=== PATIENT | male | born 1950 | race Caucasian/White ===

== ENCOUNTER 2020-01-22 19:25 | Inpatient (IN) | payer OTHER ==
[2020-01-22] MEDS ORDERED: NA CHLORIDE 0.9% 1,000 ML IV ONE (19:35)
[2020-01-22 19:59] VITALS: BMI 45.6
[2020-01-22 20:19] LABS: Absolute Lymphocytes (CBC) 0.4 K/uL (0.7-4.9); Basophils % 0.3 % (0-1.3); Hematocrit 35.1 % (39.6-49.0); Lymphocytes % 3.6 % (15.3-44.8); MPV 7.6 fL (7.6-11.3); RBC Red Blood Cell Count 3.84 M/uL (4.33-5.43)
[2020-01-22 20:40] LABS: Bilirubin Total 0.7 mg/dL (0.2-1.0); Blood Morphology Comment NOT SEEN (NOT SEEN); CKMB Creatine Kinase MB 1.2 ng/mL (0.3-3.6); Phosphorus 3.5 mg/dL (2.5-4.9); Platelet Estimate ADEQ; Potassium 3.1 mmol/L (3.5-5.1); Protein, Total 7.7 g/dL (6.4-8.2); Troponin I 0.03 ng/mL (0.0-0.045); Urine White Blood Cell Casts OK
[2020-01-22] MEDS: CEFTRIAXONE/SWI 1gm 1 GM/10 ML SYR IV SCH (22:15)
--- NOTE | 2020-01-22 22:32 | RAD REPORT ---
EXAM DESCRIPTION: Rosa M Sanchez (2 Views)01/22/2020 9:57 pm CLINICAL HISTORY: Sepsis COMPARISON: None FINDINGS: The lungs appear clear of acute infiltrate. The heart is borderline enlarged IMPRESSION: No acute abnormalities displayed
[2020-01-22] MEDS ORDERED: ENOXAPARIN 30 MG/0.3 ML SQ ONE (22:34)
[2020-01-22] MEDS: ACETAMINOPHEN 500 MG TAB PO PRN (22:35)
[2020-01-22 22:57] LABS: Urine Appearance TURBID; Urine Blood 3+ (NEG); Urine Color DK YELLOW; Urine Glucose NEGATIVE (NEG); Urine Protein 1+ (NEG); Urine Specific Gravity 1.025 (1.005-1.030)
[2020-01-22 23:04] LABS: Urine Bilirubin NEGATIVE (NEG)
[2020-01-23] MEDS: NA CHLORIDE 0.9% 1,000 ML IV SCH ×5 (00:07→22:07)
[2020-01-23 00:19] LABS: Urine Culture Reflex Order NOT NEEDED
[2020-01-23 00:22] LABS: Urine Bacteria >50 /HPF (NONE SEEN); Urine Coarse Granular Casts 0-5 /LPF (NONE SEEN); Urine RBC 20-50 /HPF (NONE SEEN)
--- NOTE | 2020-01-23 01:24 | HP ---
Date of Admission: 01/22/2020 Chief Complaint: Fever, chills, feeling weak. History Of Present Illness: This is a 69-year-old pleasant male patient who takes multiple antihypertensive medications, has chronic leg edema. He called office today as he was not feeling good at all and reported that his temperature was 102.3, so he was asked to come and see me. He denies any cough , cold, congestion, not coughing up any mucus except says that yesterday he had runny nose for about 4-5 hours. He started to have this fever as of Monday of last week and his maximum temperature was 102.3 degree Fahrenheit last night. He also reports that in the last few days, his left leg swelling has gotten worse and it is more than usual. He has history of prostate cancer and he had radiation therapy for prostate cancer and says that ever since that time, this was few years ago, he has occasional burning sensation on urination, but that has gotten worse in last few days. Denies any abdominal pain, nausea, vomiting. No constipation. No diarrhea. No shortness of breath. Today, he started to have profuse sweating. When he came to office when I examined him, he appeared extremely pale. His appetite is poor and has generalized weakness. After I evaluated him, he was admitted to the hospital and I was concerned about possibility of sepsis. Allergies: NO KNOWN ALLERGIES. Medications: Amlodipine 5 mg 2 times a day, aspirin 81 mg daily, clonidine 0.3 mg 3 times a day, hydralazine 50 mg p.o. 2 times a day, hydrochlorothiazide 12.5 mg p.o. daily, lisinopril 20 mg p.o. 2 times a day, metoprolol tartrate 100 mg p.o. 2 times a day, tamsulosin 0.4 mg p.o. daily. Review of Systems: Constitutional: As mentioned above. Genitourinary: As mentioned above. Musculoskeletal: Chronic knee joint pain, unchanged. Dermatology: As mentioned above. All other systems reviewed and negative. Past Medical History: Significant for goiter, hypertension, mixed hyperlipidemia, prostate cancer, erectile dysfunction, lymphedema of legs, osteoarthritis. Past Surgical History: Partial thyroidectomy in 2014, due to goiter and this was in form of removal of left thyroid lobe. Family History: Father , had coronary artery disease, hypertension. Mother , had Parkinson disease. Social History: Negative for smoking. Occasional use of alcohol. Physical Examination: Vital Signs: Blood pressure was 99/67 at office, repeat blood pressure was 100/ 60, checked manually; pulse 83; temperature 98.2. Patient had taken Tylenol and Motrin today for his fever. Respiratory rate 15, weight 328 pounds, height 71 inches. General: Patient is awake, alert, and oriented, not in distress, appears very weak and pale. HEENT: Head atraumatic, normocephalic. Conjunctivae nonerythematous. Sclerae white. Mouth, no thrush or edema noted. Ears/Nose, no mass, lesion, discharge noted. Neck: Supple. No JVD, lymph nodes, bruit, thyromegaly noted. Lungs: Bilateral good equal air entry. Clear to auscultation. No rhonchi. No rales. Heart: Normal heart sounds, no murmur or gallop. Abdomen: Soft, bowel sounds normal. No guarding, rigidity, tenderness, mass, hepatosplenomegaly, distention, or bruit noted. Extremities: Presence of bilateral leg edema. Skin: Skin examination of the left leg between knee and foot shows pink, warm skin, has some superficial ulceration without any bleeding or discharge. Lymphatics: No lymph node enlargement in neck, supraclavicular, infraclavicular region. Neuro: No focal neurological deficit. Chest: Unremarkable. External Genitalia: Deferred. Rectal: Deferred. Laboratory Data: Chest x-ray no acute changes. Urinalysis shows leukocyte trace, nitrite negative, WBC <5, bacteria >50, protein 1+. Lab shows WBC 10.2, hemoglobin 11.9, platelets 181, sodium 137, potassium 3.1, chloride 101, bicarb 27, glucose 100, BUN 33, creatinine 2.87, liver function tests unremarkable, procalcitonin 11.08, lactate 1.7. Impression: 1. Sepsis, rule out acute pyelonephritis. 2. Cellulitis, left leg. 3. Acute kidney failure. 4. Mixed hyperlipidemia. 5. Prostate cancer. 6. Morbid obesity. 7. Lymphedema, legs. 8. Hypertension. Plan: Admit patient to hospital for further evaluation and management of this problem. We will go ahead and admit him as an inpatient. He is appropriate for inpatient and is expected to spend 2 midnights in hospital. Blood culture was done. We will follow up on blood culture and urine culture and we will also follow up on influenza test. 1 L of IV fluid bolus will be given soon as he gets admitted, IV antibiotics ceftriaxone will be given. We will hold antihypertensive medication at this point. We will start DVT prophylaxis per order using Lovenox. Details and plan of treatment discussed with the patient. DAVID/TOM Voice ID: [id number] [email or web address]
[2020-01-23] MEDS ORDERED: POTASSIUM CL SA 10 MEQ TAB PO ONE (02:05)
[2020-01-23] MEDS: ACETAMINOPHEN 500 MG TAB PO PRN ×2 (04:44→23:45)
[2020-01-23 06:37] LABS: Absolute Lymphocytes (CBC) 0.3 K/uL (0.7-4.9); Hematocrit 30.2 % (39.6-49.0); MPV 7.9 fL (7.6-11.3); RBC Red Blood Cell Count 3.31 M/uL (4.33-5.43)
[2020-01-23 06:54] LABS: Magnesium 1.8 mg/dL (1.8-2.4)
[2020-01-23 07:03] LABS: Potassium 2.7 mmol/L (3.5-5.1)
[2020-01-23 07:39] LABS: Phosphorus 2.6 mg/dL (2.5-4.9)
[2020-01-23] MEDS ORDERED: MAGNESIUM SULFATE 1 gm IVPB 1 GM/100 ML BAG IV ONE (09:00)
[2020-01-23] MEDS: DOXYCYCLINE 100 MG in NA CHLORIDE 0.9% 100 ML IVPB SCH ×2 (09:00→22:07)
[2020-01-23] MEDS: KCL 20 MEQ/100 mL IVPB 20 MEQ/100 ML BAG IV SCH ×3 (11:05→16:22)
[2020-01-23] MEDS: CEFTRIAXONE/SWI 1gm 1 GM/10 ML SYR IV SCH ×2 (11:05→22:07)
[2020-01-23] MEDS: HYDROCODONE/APAP 5/325 MG TAB PO PRN ×3 (11:10→20:45)
[2020-01-23] MEDS ORDERED: NA CHLORIDE 0.9% 100 ML ONE (13:48)
[2020-01-23] MEDS ORDERED: DIPHENHYDRAMINE 50 MG/ML VIAL ONE (13:48)
[2020-01-23] MEDS ORDERED: NA CHLORIDE 0.9% 250 ML ONE (13:48)
[2020-01-23] MEDS ORDERED: [UNRECOGNIZED DRUG - OTHER] ONE (13:49)
[2020-01-23] MEDS ORDERED: TRASTUZUMAB ONE (13:49)
[2020-01-23] MEDS ORDERED: HEPARIN 500 UNIT/5 ML SYR IV ONE (17:02)
[2020-01-23] MEDS: ENOXAPARIN 30 MG/0.3 ML SQ SCH (18:41)
[2020-01-23] MEDS ORDERED: POTASSIUM 25 MEQ EFFERV TAB PO ONE (22:09)
[2020-01-24] MEDS ORDERED: ACETAMINOPHEN 500 MG TAB PO ONE (01:27)
[2020-01-24] MEDS ORDERED: IBUPROFEN 400 MG TAB PO ONE (01:28)
[2020-01-24] MEDS: HYDROCODONE/APAP 5/325 MG TAB PO PRN ×3 (05:23→21:44)
[2020-01-24 06:02] LABS: Potassium 3.1 mmol/L (3.5-5.1)
[2020-01-24] MEDS ORDERED: POTASSIUM 25 MEQ EFFERV TAB PO ONE ×2 (06:07→15:00)
[2020-01-24] MEDS ORDERED: VANCOMYCIN/NS 1 gm 1 GM/250 ML BAG IVPB SCH (07:30)
[2020-01-24 07:34] LABS: Absolute Lymphocytes (CBC) 0.5 K/uL (0.7-4.9); Basophils % 0.1 % (0-1.3); Hematocrit 31.6 % (39.6-49.0); Lymphocytes % 4.7 % (15.3-44.8); RBC Red Blood Cell Count 3.47 M/uL (4.33-5.43)
[2020-01-24] MEDS ORDERED: Levofloxacin500mg IV 500 MG/100 ML BAG IV ONE (08:00)
[2020-01-24] MEDS ORDERED: VANCOMYCIN 2 GM in NA CHLORIDE 0.9% 500 ML IVPB SCH (08:00)
[2020-01-24] MEDS: DOXYCYCLINE 100 MG in NA CHLORIDE 0.9% 100 ML IVPB SCH ×2 (08:37→21:19)
[2020-01-24 08:49] LABS: Blood Morphology Comment NOT SEEN (NOT SEEN); Platelet Estimate ADEQ
[2020-01-24] MEDS ORDERED: NA CHLORIDE 0.9% 500 ML ONE (08:55)
[2020-01-24] MEDS: TAMSULOSIN 0.4 MG SR CAP PO SCH (10:41)
--- NOTE | 2020-01-24 11:26 | RAD REPORT ---
EXAM DESCRIPTION: US - Renal Ultrasound-Complete - 01/24/2020 11:06 am CLINICAL HISTORY: . Acute renal failure COMPARISON: None. FINDINGS: The right kidney measures 12 cm with a normal echotexture. The left kidney measures 14 cm with a normal echotexture. 3.3 centimeters cyst Hydronephrosis is not seen. IMPRESSION: 3.3 centimeter left renal cyst
--- NOTE | 2020-01-24 11:27 | RAD REPORT ---
EXAM DESCRIPTION: US - Urinary Bladder - 01/24/2020 11:07 am CLINICAL HISTORY: Acute renal insufficiency FINDINGS: Prevoid bladder volume equals 42 cc Postvoid bladder volume equals 7 cc No ascites IMPRESSION: Prevoid bladder volume equals 42 cc Postvoid bladder volume equals 7 cc
--- NOTE | 2020-01-24 11:38 | RAD REPORT ---
EXAM DESCRIPTION: Rosa M Single View01/24/2020 11:23 am CLINICAL HISTORY: Chest pain COMPARISON: January 22, 2020 FINDINGS: The lungs appear clear of acute infiltrate. The heart is mildly to moderately enlarged IMPRESSION: No acute abnormalities displayed
--- NOTE | 2020-01-24 11:59 | P.CNS ---
Date of Consult: 01/24/20 Reason for Consult: ciera, hypokalmemia Requesting Physician: Isaias Cates Chief Complaint: fever, weakness Allergies No Known Allergies Allergy (Unverified 01/22/20 19:59) Home Medications: Abiraterone Acetate [Zytiga] 1,000 mg PO DAILY 01/22/20 Amlodipine Besylate 1 tab PO BID 01/22/20 Ascorbate Calcium [Vitamin C] 1 tab PO DAILY 01/22/20 Aspirin [Aspirin EC 81 MG] 1 tab PO BEDTIME 01/22/20 Ca/D3/Mag Ox/Zinc/Bleach Supervisor/Latrell/Bor [Calcium 600-D3 Plus Caplet] 1 tab PO DAILY 01/21 Cholecalciferol (Vitamin D3) [Vitamin D3] 1 cap PO DAILY 01/22/20 Clonidine HCl [Catapres] 1 tab PO TID 01/22/20 Hydralazine [Apresoline*] 25 mg PO BID 01/22/20 Iron,Carb/Vit C/Vit B12/Folic [Iron 100 Plus Tablet] 1 tab PO DAILY 01/22/20 Lisinopril [Zestril] 1 tab PO BID 01/22/20 Metoprolol Tartrate 50 mg PO DAILY 01/22/20 Montelukast Sodium 10 mg PO PRN 01/22/20 Tamsulosin HCl 1 tab PO DAILY 01/22/20 Ubidecarenone [Co Q10] 200 mg PO DAILY 01/22/20 hydroCHLOROthiazide [Hydrochlorothiazide] 12.5 mg PO BID 01/22/20 predniSONE [Prednisone*] 5 mg PO BID 01/22/20 - Past Medical/Surgical History Diabetic: No -: Hypertension -: Prostate CA, Radiation 45 days last Oct -: thyroidectomy - Family History Father Medical History: Heart disease Mother Medical History: Other (see notes) Notes: parkinson Brother Medical History: Other (see notes) Notes: sepsis - Social History Alcohol use: Yes CD- Drugs: No Caffeine use: Yes Place of Residence: Home Physical Examination Temp Pulse Resp BP Pulse Ox 97.3 F 106 H 16 134/84 98 01/24/20 08:00 01/24/20 08:00 01/24/20 08:00 01/24/20 08:00 01/24/20 08:00 Laboratory Data (last 24 hrs) 01/24/20 07:17: WBC 10.2 D, Hgb 10.7 L, Hct 31.6 L, Plt Count 150 L 01/24/20 05:14: Magnesium 1.9 01/24/20 05:14: Sodium 137, Potassium 3.1 L, BUN 49 H, Creatinine 3.42 H, Glucose 102 01/23/20 : Potassium Cancelled 01/23/20 21:31: Potassium 3.1 L - Problems (1) CIERA (acute kidney injury) Current Visit: Yes Status: Acute Conclusions/Impression: History Of Present Illness: A 69-year-old with PMHx of HTN , prostate CA on Leupron? was on radiation therapy until 10/2019 and started last month on Zytiga pt was sent fro fever and chills pt was started on Zytiga in december last 3-4 days pt had fever and chills, pt have chronic dysuria due to radiation cystitis had runny nose for 3-4 hrs , with mild nausea and no vomiting he denied SOB , cough, diarrhea, chest pain, palpitation , pt was taking Ibuprofen 3-4 times daily last 3-4 days Allergies: NO KNOWN ALLERGIES. Medications: Amlodipine 5 mg 2 times a day, aspirin 81 mg daily, clonidine 0.3 mg 3 times a day, hydralazine 50 mg p.o. 2 times a day, hydrochlorothiazide 12.5 mg p.o. daily, lisinopril 20 mg p.o. 2 times a day, metoprolol tartrate 100 mg p.o. 2 times a day, tamsulosin 0.4 mg p.o. daily. Review of Systems: as in HPI Past Medical History: as in HPI Past Surgical History: Partial thyroidectomy in 2014, due to goiter and this was in form of removal of left thyroid lobe. Family History: Father , had coronary artery disease, hypertension. Mother , had Parkinson disease. Social History: Negative for smoking. Occasional use of alcohol. Physical exam general: AAOX3, NAD , obese Neck; Supple, No elevated JVD hear: RRR, normal S1,2 no murmur or rub Chest: CTAB, no rales or wheezes Abdomen: Soft , Nt Extremities Lt leg edema and erythema , with Lt leg trace edema A/p CIERA Cr ~1.0 at baseline possibly due to septic ATn vs Zytiga will cont IVF renal US no hydro will cont IV for now cont to hold HCTZ will send for serology will send for UPC HTN BP controlled Bladder CA hold Zytiga Sepsis monitor vanco level F/U cultures
[2020-01-24] MEDS: NA CHLORIDE 0.9% 1,000 ML IV SCH ×2 (12:00→21:19)
--- NOTE | 2020-01-24 12:25 | PN ---
Date of Progress Note: 01/23/2020 Subjective: The patient was seen for followup in the morning. He actually looked better than yester day. He is complaining of lot of pain in his left leg and reported that Tylenol was not helping, so we did talk about some stronger pain medication and we will order that for him. No nausea or vomitin g. No other new complaints reported overnight. Objective: Vital Signs: Reviewed. HEENT: Unremarkable. Lungs: Clear to auscultation. Heart: Sounds normal. Abdomen: Soft. Bowel sounds normal. No guarding, rigidity, tenderness, or distention. Extremity: Left leg redness of the skin between knee and foot is present and unchanged. Leg is warm to touch. No new findings noted. Right leg is normal. Laboratory Data: White count 8.1, hemoglobin 10.3, platelets 148. Procalcitonin level today is 6.16 , which is better from yesterday and yesterday it was 11.08. Sodium 135, potassium 2.7, chloride 103 , bicarb 24, BUN 37, creatinine 2.61, glucose 93, magnesium 1.8. Creatinine today is better, it is 2 .61. Yesterday, it was 2.87. Impression: 1.Cellulitis, left leg. 2.Rule out sepsis. 3.Acute kidney failure. 4.Hypertension. 5.Hypokalemia. 6.Hyponatremia. Plan: We will go ahead and continue IV fluid per order. We will also continue ceftriaxone that was started upon admission and we will add doxycycline. Blood culture result pending. Influenza test is negative. The patient's procalcitonin has improved compared to yesterday. IV fluid will be continu ed. We will continue Lovenox for DVT prophylaxis, and hydrocodone was ordered. We will add doxycycl ine as per order and I will see him tomorrow for followup. We will not start any antihypertensive medica tion yet. DAVID/MODL Voice ID: [id number] Report ID: [id number]
[2020-01-24] MEDS: VANCOMYCIN 2 GM in NA CHLORIDE 0.9% 500 ML IVPB SCH (12:38)
[2020-01-24] MEDS: ENOXAPARIN 30 MG/0.3 ML SQ SCH (16:05)
[2020-01-24] MEDS: predniSONE 5 MG TAB PO SCH (21:18)
[2020-01-24] MEDS: ACETAMINOPHEN 500 MG TAB PO PRN (22:21)
--- NOTE | 2020-01-24 22:21 | PN ---
Date of Progress Note: 01/24/2020 Subjective: Patient was seen this morning for followup. He was sitting at bedside in chair. Overal l, he looks a lot better today than yesterday and day before yesterday. He had lot of leg pain yeste rday in the left leg, but that has improved. Denies any abdominal pain, nausea, vomiting. No shortn ess of breath. Appetite has improved. Objective: Vital Signs: Reviewed. Blood pressure actually has improved now. HEENT: Unremarkable. Lungs: Clear to auscultation. Heart: Heart sounds normal. Abdomen: Soft, bowel sounds normal. No guarding, rigidity, tenderness, or distention. Extremities: Left leg has about grade 3 pedal edema. Edema of the left leg has gotten worse compare d to yesterday and cellulitis changes also has gotten worse today compared to yesterday and day befor e yesterday. Today, his left medial thigh almost entire left medial thigh has pink warm skin, which is new. His intensity of redness of skin in the area between left knee and foot is lot worse today a lso involving left foot. There is some clear liquid type of discharge from the left dorsum foot and nurse was advised to go ahead and clean that area and send it for the culture. Laboratory Data: Today's blood work results reviewed. White count is normal. His procalcitonin is down to 4. Yesterday, it was 6, day before yesterday it was 11. Creatinine has gone up today to 3.4 range, from the time of admission, which was day before yesterday. Until yesterday morning, there w as improvement and between yesterday morning and today creatinine has gone up. His procalcitonin has steadily declined since the time of admission. Impression: 1.Cellulitis, left leg. 2.Acute kidney failure. 3.Rule out sepsis. 4.Hypertension. Plan: We will go ahead and discontinue ceftriaxone and doxycycline and start the patient on Levaquin as well as vancomycin as per order. Consult pharmacy for vancomycin dose management. IV fluid was ordered. Patient was getting IV fluid at 100 mL/hour and 500 mL bolus was ordered and then we will c ontinue IV fluid at 100 mL/hour. Kidney and bladder ultrasound was ordered to be done this morning. Results reviewed and it is normal. Nephrology consultation was also ordered and charter coach driver has se en the patient and I have discussed details with the charter coach driver. I expect his renal function to im prove hopefully starting tomorrow or day after tomorrow we might able to reach peak level today. His renal failure I strongly suspect is result of probable acute kidney injury from hypotension and seps is type of problem and all the details were discussed with the patient. No need for any antihyperten sive medication at this point yet. PICC line was ordered as the patient is having poor IV access. W e will repeat blood work tomorrow morning. Ambulation was encouraged. Patient was advised to keep h is leg elevated and continue DVT prophylaxis with Lovenox. DAVID/MODL Voice ID: [id number] Report ID: [id number]
[2020-01-25 02:19] LABS: Urine Protein/Creatinine Ratio 2.04 ratio (<0.15)
[2020-01-25] MEDS: TAMSULOSIN 0.4 MG SR CAP PO SCH (07:26)
[2020-01-25] MEDS: predniSONE 5 MG TAB PO SCH ×2 (07:26→21:04)
[2020-01-25 07:28] LABS: Potassium 3.4 mmol/L (3.5-5.1)
[2020-01-25] MEDS: NA CHLORIDE 0.9% 1,000 ML IV SCH ×2 (07:32→17:08)
[2020-01-25 07:58] LABS: Phosphorus 2.8 mg/dL (2.5-4.9); Thyroid Stimulating Hormone 0.458 uIU/mL (0.360-3.740); Uric Acid 5.9 mg/dL (3.5-7.2)
[2020-01-25] MEDS ORDERED: Levofloxacin 250mg IV 250 MG/50 ML BAG IV SCH (08:00)
[2020-01-25 08:31] LABS: Rheumatoid Factor NEG (NEG)
[2020-01-25] MEDS: DOXYCYCLINE 100 MG in NA CHLORIDE 0.9% 100 ML IVPB SCH (08:51)
[2020-01-25] MEDS ORDERED: POTASSIUM 25 MEQ EFFERV TAB PO ONE ×2 (09:00→16:00)
[2020-01-25] MEDS: METOPROLOL TAR 25 MG TAB PO SCH ×2 (09:49→21:04)
--- NOTE | 2020-01-25 13:32 | PN ---
Date of Progress Note: 01/25/2020 Subjective: Patient was seen this morning for followup. No new complaints or problems reported by h im. Reported that he rested well last night. Pain in his left leg is better when he has his leg chantelle vated, but notices more pain when he keeps his leg in a dependent position while sitting, standing, w alking, etc. Denies any shortness of breath. Objective: Vital Signs: Reviewed. HEENT: Unremarkable. Lungs: Clear to auscultation. Heart: Heart sounds normal. Abdomen: Soft. Bowel sounds normal. No guarding, rigidity, tenderness, distention. Extremities: Right leg, no edema. Left leg has grade 3 pedal edema, which is unchanged from yesterd ay. Redness of skin of left thigh and left leg between knee and toes remain unchanged today and swel ling remains unchanged today. There are some superficial open areas on the lower and lateral leg and dorsum foot remains unchanged. Laboratory Data: Sodium 139, potassium 3.4, chloride 106, bicarb 24, BUN 50, creatinine 3.60, glucos e 90. Blood culture remains negative. Impression: 1.Acute kidney injury. 2.Cellulitis, left leg. 3.Hypertension. 4.Sinus tachycardia. Plan: Patient's heart rate remains in 120 to 130 range lot of times and on surveillance monitor it is s inus tachycardia. No evidence of atrial fibrillation. We will restart his antihypertensive medicati on, metoprolol that he normally takes at home and we will start it at 25 mg twice a day dose. His cr eatinine when he came in was 2.8 and it came down to 2.6, then yesterday went up to 3.4, and today it is 3.6. Increase in creatinine in the last 24 hours is not as bad as previous 24 hours, so I hope t hat we might have reached a peak level by today. We will continue current antibiotics, IV fluids, re peat blood work tomorrow, continue to follow with blood or blood bank technician, and I will see him tomorrow for follo wup. Continue Lovenox and prednisone per order. Patient reported that he is on prednisone for the l ast 3 weeks along with his chemotherapy medication started by Dr. Estrella. DAVID/MODL Voice ID: [id number] Report ID: [id number]
--- NOTE | 2020-01-25 15:55 | P.PN ---
Subjective Date of Service: 01/25/20 Chief Complaint: fever, weakness Subjective A 69-year-old with PMHx of HTN , prostate CA was on radiation therapy until 2018 and started last month on Zytiga pt was sent fro fever and chills pt was started on Zytiga in med December in [place] cr 2.6 and elevated to 3.6 today feels better have tachycardia , BB restarted Cr slightly elevate d to 3.8, plateauing? cont IVF for now Allergies: NO KNOWN ALLERGIES. Medications: Amlodipine 5 mg 2 times a day, aspirin 81 mg daily, clonidine 0.3 mg 3 times a day, hydralazine 50 mg p.o. 2 times a day, hydrochlorothiazide 12.5 mg p.o. daily, lisinopril 20 mg p.o. 2 times a day, metoprolol tartrate 100 mg p.o. 2 times a day, tamsulosin 0.4 mg p.o. daily. Review of Systems: as in HPI Past Medical History: as in HPI Past Surgical History: Partial thyroidectomy in 2014, due to goiter and this was in form of removal of left thyroid lobe. Family History: Father , had coronary artery disease, hypertension. Mother , had Parkinson disease. Social History: Negative for smoking. Occasional use of alcohol. Physical exam general: AAOX3, NAD , obese Neck; Supple, No elevated JVD hear: tachycardia, regular rhythm normal S1,2 no murmur or rub Chest: CTAB, no rales or wheezes Abdomen: Soft , Nt Extremities Lt leg edema and erythema , with Lt leg trace edema A/p CIERA Cr ~1.0 at baseline possibly due to septic ATn vs Zytiga will cont IVF renal US no hydro will cont IV for now cont to hold HCTZ UPC 2.0 F/U serology HTN BP controlled Bladder CA hold Zytiga Sepsis monitor vanco level F/U cultures Physical Examination - Vital Signs Temperature: 99 F Blood Pressure: 123/68 Pulse: 125 Respirations: 16 Pulse Ox (%): 94 - Studies Laboratory Data (last 24 hrs) 01/25/20 15:23: Potassium 3.7 01/25/20 13:00: Potassium Cancelled 01/25/20 07:15: Uric Acid 5.9, Phosphorus 2.8 01/25/20 05:47: Sodium 139, Potassium 3.4 L, BUN 50 H, Creatinine 3.60 H, Glucose 90 Microbiology Data (last 24 hrs): 01/24/20 13:45 Wound - Left Foot Gram Stain - Final 01/24/20 08:14 Blood - Blood Anaerobic Blood Culture - Final 01/22/20 22:10 Clean Catch Urine [place] Count - Final <10,000 CFU/ML. 01/22/20 22:10 Clean Catch Urine - Final MIXED AMBER. Assessment And Plan - Current Problems (Diagnosis) (1) CIERA (acute kidney injury) Current Visit: Yes Status: Acute
[2020-01-25] MEDS: ENOXAPARIN 30 MG/0.3 ML SQ SCH (17:07)
[2020-01-25] MEDS: HYDROCODONE/APAP 5/325 MG TAB PO PRN (21:11)
[2020-01-25] MEDS: VANCOMYCIN 2 GM in NA CHLORIDE 0.9% 500 ML IVPB SCH (22:30)
[2020-01-25] MEDS: ACETAMINOPHEN 500 MG TAB PO PRN (22:30)
[2020-01-26] MEDS: ACETAMINOPHEN 500 MG TAB PO PRN ×3 (02:16→21:47)
[2020-01-26 04:11] LABS: Absolute Lymphocytes (CBC) 0.5 K/uL (0.7-4.9); Basophils % 0.1 % (0-1.3); Hematocrit 26.7 % (39.6-49.0); Lymphocytes % 3.4 % (15.3-44.8); MPV 8.2 fL (7.6-11.3); RBC Red Blood Cell Count 2.94 M/uL (4.33-5.43)
[2020-01-26] MEDS ORDERED: METOPROLOL TARTRATE 5 MG/5 ML INJ IV PRN ×2 (04:21→04:35)
[2020-01-26 04:25] LABS: Magnesium 1.5 mg/dL (1.8-2.4); Potassium 3.1 mmol/L (3.5-5.1)
[2020-01-26] MEDS: NA CHLORIDE 0.9% 1,000 ML IV SCH ×3 (04:35→16:06)
[2020-01-26] MEDS ORDERED: Magnesium Sulfate 2gm IVPB 2 G/50 ML BAG IV ONE (05:21)
[2020-01-26] MEDS ORDERED: POTASSIUM CL SA 10 MEQ TAB PO ONE (05:22)
[2020-01-26] MEDS: TAMSULOSIN 0.4 MG SR CAP PO SCH (08:06)
[2020-01-26] MEDS: predniSONE 5 MG TAB PO SCH ×2 (08:06→21:47)
[2020-01-26] MEDS ORDERED: METOPROLOL TAR 50 MG TAB PO SCH (09:00)
[2020-01-26] MEDS ORDERED: Meropenem 1000 MG/VIAL IV SCH (09:00)
--- NOTE | 2020-01-26 09:13 | EKG ---
Test Date: 2020-01-26 Test Time: 03:25:22 Hop Separator: RT [place] MEASUREMENT RESULTS: Intervals: Rate: 137 [place]: QRSD: 82 QT: 256 QTc: 386 [place]: P: [place]: QRS: 31 T: 82 INTERPRETIVE STATEMENTS: Atrial fibrillation with rapid ventricular response Abnormal ECG No previous ECG available for comparison Electronically Signed On 01-26-20 09:12:43 CDT by Chidi Arredondo
[2020-01-26] MEDS: CLINDAMYCIN INJ 600 MG in NA CHLORIDE 0.9% 50 ML IV SCH ×2 (09:43→17:25)
[2020-01-26] MEDS: Meropenem 1,000 MG in NA CHLORIDE 0.9% 100 ML IV SCH ×2 (10:27→21:47)
--- NOTE | 2020-01-26 12:02 | P.PN ---
Subjective Date of Service: 01/26/20 Chief Complaint: fever, weakness Subjective A 69-year-old with PMHx of HTN , prostate CA was on radiation therapy until 2018 and started last month on Zytiga pt was sent fro fever and chills pt was started on Zytiga in med December in [place] cr 2.6 and elevated to 3.6 today feels better , mild tachycardia Cr improving to 3.0 , ATN? resolving cont IVF wbc up to 15K, Abx adjusted by primary team, cont IVF for now will replace K, Mg replaced Allergies: NO KNOWN ALLERGIES. Medications: Amlodipine 5 mg 2 times a day, aspirin 81 mg daily, clonidine 0.3 mg 3 times a day, hydralazine 50 mg p.o. 2 times a day, hydrochlorothiazide 12.5 mg p.o. daily, lisinopril 20 mg p.o. 2 times a day, metoprolol tartrate 100 mg p.o. 2 times a day, tamsulosin 0.4 mg p.o. daily. Review of Systems: as in HPI Past Medical History: as in HPI Past Surgical History: Partial thyroidectomy in 2014, due to goiter and this was in form of removal of left thyroid lobe. Family History: Father , had coronary artery disease, hypertension. Mother , had Parkinson disease. Social History: Negative for smoking. Occasional use of alcohol. Physical exam general: AAOX3, NAD , obese Neck; Supple, No elevated JVD hear: tachycardia, regular rhythm normal S1,2 no murmur or rub Chest: CTAB, no rales or wheezes Abdomen: Soft , Nt Extremities Lt leg edema and erythema , with Lt leg trace edema A/p CIERA Cr ~1.0 at baseline possibly due to septic ATn vs Zytiga will cont IVF renal US no hydro will cont IV for now cont to hold HCTZ UPC 2.0 F/U serology HTN BP controlled Bladder CA hold Zytiga Sepsis monitor vanco level F/U cultures tachycardia possibly due to sepsis vs reflex from holding BB now restarted on BB Physical Examination - Vital Signs Temperature: 97.7 F Blood Pressure: 137/84 Pulse: 101 Respirations: 18 Pulse Ox (%): 98 - Studies Laboratory Data (last 24 hrs) 01/26/20 03:45: Sodium 140, Potassium 3.1 L, BUN 51 H, Creatinine 3.00 H, Glucose 97, Magnesium 1.5 L 01/26/20 03:45: WBC 15.4 H D, Hgb 8.9 L, Hct 26.7 L D, Plt Count 159 01/25/20 15:23: Potassium 3.7 Microbiology Data (last 24 hrs): 01/24/20 13:45 Wound - Left Foot Gram Stain - Final 01/24/20 08:14 Blood - Blood Anaerobic Blood Culture - Final 01/22/20 22:10 Clean Catch Urine [place] Count - Final <10,000 CFU/ML. 01/22/20 22:10 Clean Catch Urine - Final MIXED AMBER. Assessment And Plan - Current Problems (Diagnosis) (1) CIERA (acute kidney injury) Current Visit: Yes Status: Acute
[2020-01-26 12:10] LABS: Potassium 3.8 mmol/L (3.5-5.1)
--- NOTE | 2020-01-26 14:45 | CON ---
Date of Consultation: 01/26/2020 Reason For Consultation: New-onset atrial fibrillation. History Of Present Illness: Mr. Ha is a 69-year-old male. He is a patient of Dr. Cates, has multip le issues, but basically was admitted from Dr. Cates's office with cellulitis, sepsis, severe lymphede ma of the left leg, acute kidney failure, dyslipidemia, hypertension, morbid obesity. He was being t reated with Lovenox, Levaquin, prednisone, vancomycin, Vibramycin, as well as metoprolol and some of his home medication and while he was being treated, he had an episode yesterday of atrial fibrillatio n with a rapid ventricular response that has resolved on its own. He is today in normal sinus rhythm . He rarely feels any palpitation, but denied any symptoms with his atrial fibrillation. He denied any chest pain, shortness of breath. He denied any syncope. Past Medical History: As stated above. Allergies: NONE. Review of Systems: Positive for fever 102.3 when he came in. Social History: Unremarkable. Family History: Positive for coronary artery disease. Medications: At home include clonidine, metoprolol, aspirin, hydralazine, prednisone, Flomax, hydroc hlorothiazide as well as lisinopril and a medicine called [employer]. Physical Examination: Vital Signs: Stable. He was afebrile. He was in a sinus rhythm now. HEENT: Negative. Neck: Supple. No bruit. Chest: Clear. Cardiac: Revealed a regular rhythm and rate. No murmurs, gallops, or rubs. Abdomen: Obese, but benign. Extremities: Revealed normal right lower extremity, but the left lower extremity had cellulitis, sev ere edema, erythema. His edema extended to his left thigh. Diagnostic Data: His creatinine was 3.0. White count was 15,000, hemoglobin is 8.9. Procalcitonin was 4.32. EKG now showed normal sinus rhythm with nonspecific changes. Impression And Plan: Single episode of atrial fibrillation, now has resolved. Patient has all the r isk factors for atrial fibrillation. He has morbid obesity. He has hypertension, dyslipidemia. He came in with acute kidney failure, followed by Nephrology. He is being treated for cellulitis, sepsi s as well as lymphedema. I suggest we do not put him on anticoagulation as far as oral anticoagulati on for now just from having one episode. I do agree with the Lovenox and the metoprolol along with h is other medication that he is getting for his infections. I would like him to get a 2D echocardiogr am tomorrow. If the echocardiogram is normal, I would suffice with aspirin and beta-blockers. It ma y be worth getting an event monitor on him down the road to see if he is having paroxysmal atrial fib rillation and we can make an arrangement for that as an outpatient. I will discuss the case further with Dr. Cates. His other problems including hypertension and dyslipidemia are well controlled. His kidney function is being followed closely by Nephrology. I will continue to follow him. DESHAWN/TOM Voice ID: [id number] Report ID: [id number]
[2020-01-26] MEDS: ENOXAPARIN 30 MG/0.3 ML SQ SCH (16:06)
--- NOTE | 2020-01-26 16:51 | PN ---
Date of Progress Note: 01/26/2020 Subjective: Patient was seen this morning for followup. He was lying in bed, not in any distress. He actually feels better and looked a lot better today than last couple of days. Vital signs reviewe d. During nighttime, he had atrial fibrillation with rapid ventricular rate and he did convert to si nus rhythm after IV metoprolol, which was given early this morning. When I saw him this morning, he was in sinus rhythm. He still has lot of left leg pain, especially worse when he sits or stands with the leg in the dependent position. Objective: Vital Signs: Reviewed. HEENT: Unremarkable. Lungs: Clear to auscultation. Heart: Sounds normal. Abdomen: Soft. Bowel sounds normal. No guarding, rigidity, tenderness, distention. Extremities: Right leg, no edema. Left leg, edema remains unchanged and redness distribution from t high and lower leg remains unchanged, but intensity of redness is better today compared to yesterday and instead of hard pink appearance of the skin, now it is brownish color in lot of areas. Distribut ion remains the same from thigh and lower leg area. Laboratory Data: White count has gone up to 15.4 today, hemoglobin 8.9, platelets 159. Sodium 140, potassium 3.1, chloride 109, bicarb 23, BUN 51, creatinine 3, glucose 97, magnesium 1.5. Procalciton in today 4.32. Impression: 1.Cellulitis, left leg. 2.Acute kidney injury. 3.Hypokalemia. 4.Hypomagnesemia. 5.Anemia. 6.Hypertension. 7.Paroxysmal atrial fibrillation. Plan: We will go ahead and replace electrolyte per protocol. Metoprolol dose was increased to 50 mg twice a day. Cardiology consultation was requested. We will give anticoagulation therapy per order . I have changed antibiotics today and we will give IV meropenem and IV clindamycin per order. Vanc omycin will be continued per order. Renal function is better today. WBC has gone up today, but proc alcitonin continues to get better. All the details were discussed with the patient. WBC count shoul d show improvement with some change in antibiotics today, but procalcitonin continues to show improve ment on a day-to-day basis since admission and renal function has shown improvement now, so we hope t hat will continue to show improvement as well. DAVID/MODL Voice ID: [id number] Report ID: [id number]
[2020-01-26] MEDS: VANCOMYCIN 2 GM in NA CHLORIDE 0.9% 500 ML IVPB SCH (21:47)
[2020-01-26] MEDS: METOPROLOL TAR 50 MG TAB PO SCH (21:48)
[2020-01-27] MEDS: CLINDAMYCIN INJ 600 MG in NA CHLORIDE 0.9% 50 ML IV SCH ×3 (00:58→16:56)
[2020-01-27] MEDS: ACETAMINOPHEN 500 MG TAB PO PRN (02:03)
[2020-01-27] MEDS: NA CHLORIDE 0.9% 1,000 ML IV SCH ×2 (02:06→14:31)
[2020-01-27 05:05] LABS: Absolute Lymphocytes (CBC) 0.6 K/uL (0.7-4.9); Basophils % 0.2 % (0-1.3); Hematocrit 25.8 % (39.6-49.0); Lymphocytes % 3.7 % (15.3-44.8); MPV 7.8 fL (7.6-11.3)
[2020-01-27 05:20] LABS: Magnesium 1.8 mg/dL (1.8-2.4); Potassium 3.7 mmol/L (3.5-5.1)
[2020-01-27] MEDS ORDERED: MAGNESIUM SULFATE 1 gm IVPB 1 GM/100 ML BAG IV ONE (08:00)
[2020-01-27] MEDS: METOPROLOL TAR 50 MG TAB PO SCH ×2 (08:20→20:08)
[2020-01-27] MEDS: predniSONE 5 MG TAB PO SCH ×2 (08:22→20:07)
[2020-01-27] MEDS: TAMSULOSIN 0.4 MG SR CAP PO SCH (08:22)
--- NOTE | 2020-01-27 09:52 | RAD REPORT ---
EXAM DESCRIPTION: US - Extrem Venous W [employer]ress Derek - 01/27/2020 9:35 am CLINICAL HISTORY: leg edema Bilateral leg edema and swelling. COMPARISON: Extremity Venous [facility] dated 05/15/2018 TECHNIQUE: Real-time sonographic interrogation of the left and right lower extremity deep venous sys tems was performed. FINDINGS: Normal compressibility, flow augmentation, phasic flow and spontaneous flow is identified in both the left and right lower extremity deep venous systems. 5 cm right Pérez's cyst. IMPRESSION: No sonographic evidence of left or right lower extremity deep venous thrombosis.
--- NOTE | 2020-01-27 11:02 | RAD REPORT ---
EXAM DESCRIPTION: RAD - Chest Single View - 01/25/2020 12:11 am ADDENDUM #1 A right upper extremity PICC is present with the tip difficult to fully appreciate, is felt to be in the region of the SVC/RA junction. Electronically signed by: Irais Salgado MD 01/25/2020 5:04 AM CDT End of Addendum EXAM DESCRIPTION: Chest Single View CLINICAL HISTORY: 69 years Male S/P PICC insertion COMPARISON: None TECHNIQUE: AP view of the chest was obtained. FINDINGS: Cardiac silhouette is enlarged. Central vessels are not increased. No peripheral catheter identified. No infiltrates or effusions seen. No consolidation. No pneumothorax. IMPRESSION: No peripheral catheter identified. No active cardiopulmonary disease. Electronically signed by: Mabel Wu MD 01/25/2020 12:26 AM CDT Due to temporary technical issues with the PACS/Fluency reporting system, reports are being signed by the in house radiologist as a courtesy to ensure prompt reporting. The interpreting radiologist is f ully responsible for the content of the report.
[2020-01-27] MEDS: Meropenem 1,000 MG in NA CHLORIDE 0.9% 100 ML IV SCH ×2 (11:05→20:07)
--- NOTE | 2020-01-27 12:00 | CON ---
Date of Consultation: 01/27/2020 Reason For Consultation: Left leg cellulitis, lymphangitis, lymphedema, and wounds. History Of Present Illness: Patient is a 69-year-old gentleman who was admitted with fever, chills, and feeling weak. Diagnosis of cellulitis of the left leg. Was started on IV antibiotics and over t he next few days, the redness slightly improved. However, he developed some blisters and wounds on h is left leg and I was consulted. He is awake, alert, states that it is very painful to the touch. N o more fevers. No purulent discharge, but he has a lot of blistering of the skin that needs debridem ent. Review of Systems: Otherwise unremarkable. Medical History: High blood pressure, goiter, hyperlipidemia, prostate cancer, lymphedema of the leg s, osteoarthritis. Past Surgical History: Partial thyroidectomy. Allergies: NONE. Social History: Patient does not smoke. Drinks occasionally. Family History: Significant for coronary artery disease, hypertension, Parkinson disease. Physical Examination: Vital Signs: Significant for slightly elevated heart rate 112, blood pressure is 187/89, and his tem perature is 99.6. General: He is awake, alert, and oriented x3. Head and Neck: Cranial nerves 2 through 12 are grossly within normal limits. No neck masses. No JV D. Throat clear. Neck is supple. Chest: Clear. Heart: S1 and S2. Abdomen: Soft. Extremities: Dorsalis pedis and posterior tibial not palpable because of extensive lymphedema. The left leg below the knee there is redness, warmth, edema. There is blistering of the skin on the lowe r leg as well as the dorsum of the foot extending toward the plantar aspect of the foot. It is a chery y large area. Laboratory Data: White count is 14.9 with a left shift. H and H are 8.6 and 25.8. Chemistry review ed. His lactic acid, procalcitonin were slightly elevated on admission. Currently, his lactic acid is 0.7. Assessment: Left leg cellulitis with wound and lymphedema. Recommendations: Continue IV antibiotics. Patient is growing methicillin-resistant Staphylococcus a ureus, therefore he is on vancomycin for that as well as clindamycin and we will tomorrow take him to surgery, debride all those blisters under sedation as it is very painful for the patient to do that at bedside. Patient understands the risks, benefits, and alternatives and agrees to procedure. Plan of care discussed with Dr. Cates. EJ/TOM Voice ID: [id number] Report ID: [id number]
--- NOTE | 2020-01-27 12:44 | P.OP ---
Preoperative diagnosis: ESRD Postoperative diagnosis: same Primary procedure: SHON Pan, Fluoroscopy Anesthesia: MAC Estimated blood loss: min Specimen: none Findings: as above Complications: None Transferred to: Recovery Room Condition: Good
--- NOTE | 2020-01-27 14:56 | ECHO ---
HEIGHT: 5 ft 11 in WEIGHT: 327 lb 0 oz DATE OF STUDY: 01/27/[address]: Chidi Arredondo MD 2-DIMENSIONAL: YES M.MODE: YES DOPPLER: YES COLOR FLOW: YES TDS: YES PORTABLE: NO DEFINITY: NO BUBBLE STUDY: NO DIAGNOSIS: ATRIAL FIBRILLATOR CARDIAC HISTORY: CATHERIZATION: NO SURGERY: NO PROSTHETIC VALVE: NO PACEMAKER: NO MEASUREMENTS (cm) DIASTOLIC (NORMALS) SYSTOLIC (NORMALS) IVSd 1.7 (0.6-1.2) LA Diam 3.4 (1.9-4.0) LVEF 64% LVIDd 4.4 (3.5-5.7) LVIDs 2.9 (2.0-3.5) %FS 35% LVPWd 1.6 (0.6-1.2) Ao Diam 3.2 (2.0-3.7) 2 DIMENSIONAL ASSESSMENT: RIGHT ATRIUM: NORMAL LEFT ATRIUM: NORMAL RIGHT VENTRICLE: NORMAL LEFT VENTRICLE: LEFT VENTRICULAR HYPERTROPHY TRICUSPID VALVE: NORMAL MITRAL VALVE: NORMAL PULMONIC VALVE: NORMAL AORTIC VALVE: SCLEROSIS PERICARDIAL EFFUSION: NONE AORTIC ROOT: NORMAL LEFT VENTRICULAR WALL MOTION: NORMAL. DOPPLER/COLOR FLOW: IMPAIRED LEFT VENTRICUALR RELAXATION. COMMENTS: NORMAL LEFT VENTRICULAR EJECTION FRACTION. LEFT VENTRICULAR HYPERTROPHY. AORTIC SCLEROSIS WITH NO AORTIC STENOSIS/ AORTIC REGURGITATION. IMPAIRED LEFT VENTRICULAR RELAXATION. SINUS TACHYCARDIA, 115 BEATS PER MINUTE DURING THIS STUDY. TECHNOLOGIST: ISSAC RUSSELL
[2020-01-27] MEDS ORDERED: POTASSIUM 25 MEQ EFFERV TAB PO ONE (16:00)
[2020-01-27] MEDS: ENOXAPARIN 30 MG/0.3 ML SQ SCH (16:57)
[2020-01-27] MEDS: HYDROCODONE/APAP 5/325 MG TAB PO PRN (20:08)
[2020-01-27] MEDS: CLONIDINE HCL 0.3 MG TAB PO SCH (20:10)
[2020-01-27] MEDS: HYDRALAZINE HCL 25 MG TABLET PO SCH (20:10)
--- NOTE | 2020-01-27 20:37 | PN ---
Date of Progress Note: 01/27/2020 Subjective: Patient was seen this morning for followup. No new complaints problems reported by him. Lying in bed, sleeping easily, arousable, not in distress. Objective: Vital Signs: Reviewed. HEENT: Unremarkable. Lungs: Clear to auscultation. Cardiac: Heart sounds normal. Abdomen: Soft, bowel sounds normal. No guarding, rigidity, tenderness, or distention. Extremities: Right leg, no edema. Left leg edema is unchanged to slightly better. The discoloratio n of the skin from left thigh and left lower leg remains unchanged from yesterday. Skin on the poste romedial aspect of the left leg has some evidence of fluid collection under the epidermal skin layer and multiple different areas. Laboratory Data: White count 14.9, hemoglobin 8.6, platelets 230. Sodium 140, potassium 3.7, chlori de 108, bicarb 24, BUN 51, creatinine 2.57, glucose 93, magnesium 1.8. Wound culture growing MRSA. Impression: 1.Cellulitis, left leg, organism methicillin-resistant Staphylococcus aureus. 2.Acute kidney injury. 3.Anemia. 4.Hypertension. 5.Paroxysmal atrial fibrillation. Plan: We will go ahead and consult Dr. Salcedo for evaluation to see if he needs debridement done on t he left leg. Continue current antibiotics. He is responding well. Acute kidney injury problem is i mproving well and physical therapy was consulted. We will get a venous Doppler of both lower extremi ty to rule out any DVT and we will see him tomorrow for followup. Details of plan of treatment discussed with the patient. DAVID/MODL Voice ID: [id number] Report ID: [id number]
--- NOTE | 2020-01-27 21:51 | EKG ---
Test Date: 2020-01-26 Test Time: 07:31:07 Windshield Wiper Repairer: ANAYELI MEASUREMENT RESULTS: Intervals: Rate: 109 NV: 180 QRSD: 86 QT: 328 QTc: 441 [place]: P: 45 NV: 180 QRS: 30 T: 9 INTERPRETIVE STATEMENTS: Sinus tachycardia Otherwise normal ECG Compared to ECG 01/26/2020 03:25:22 Atrial fibrillation no longer present Electronically Signed On 01-27-20 21:50:43 CDT by Jimmy Austin
[2020-01-27] MEDS: VANCOMYCIN 2 GM in NA CHLORIDE 0.9% 500 ML IVPB SCH (22:00)
[2020-01-28] MEDS: CLINDAMYCIN INJ 600 MG in NA CHLORIDE 0.9% 50 ML IV SCH ×3 (01:22→17:06)
[2020-01-28] MEDS: NA CHLORIDE 0.9% 1,000 ML IV SCH ×3 (01:22→17:07)
--- NOTE | 2020-01-28 02:23 | PN ---
Date of Progress Note: 01/27/2020 Chief Complaint: Acute kidney injury on chronic kidney disease. History Of Present Illness: Patient developed severe acute kidney injury. Serum creatinine was elevated up to 3.6, and in the ER was 2.6. Patient has progressively worse renal dysfunction "the patient has multiple medical problems including history of hypertension, prostate cancer, on radiation until October 2012 and started on Lasix for volume control". Patient was found to have hypokalemia and hypomagnesemia, received replacement. Patient is on IV fluids for hydration to treat prerenal azotemia and stabilize renal function. Patient was found to have severe leukocytosis. White count is 14.9,000 and is improving around 15.4,000. Chemistry panel shows some improvement of renal function since yesterday. BUN is 51, creatinine 2.57. Laboratory Data: Sodium 140, potassium 3.7, chloride 104, CO2 24, calcium 8.3. Review of Systems: Denies fevers or chills. Physical Examination: Lungs: Clear to auscultation bilaterally. Heart: S1-S2. Abdomen: Soft, benign, nontender. Extremities: Minimal edema. Impression And Plan: 1. Acute on chronic kidney injury. Avoid nephrotoxic medication. Continue IV hydration. Patient has multiple medical problems including history of prostate cancer. Patient may need to be evaluated by urologist. 2. Continue hypertensive medication. Monitor renal function. Creatinine baseline is 1.0. Patient is recovering from acute kidney injury. Patient developed an acute tubular necrosis secondary to ongoing sepsis. Continue antibiotics and adjust antibiotics to kidney function. Patient has sepsis and followup blood cultures are pending. Patient is on vancomycin. Monitor vancomycin toxicity. I spent total 36 min including 25 min to coordinate care plan. MILES/MODL Voice ID: [id number] Report ID: [id number] CHANEL
[2020-01-28 05:15] LABS: Absolute Lymphocytes (CBC) 0.5 K/uL (0.7-4.9); Basophils % 0.3 % (0-1.3); Hematocrit 25.9 % (39.6-49.0); Lymphocytes % 4.5 % (15.3-44.8); MPV 7.5 fL (7.6-11.3); RBC Red Blood Cell Count 2.82 M/uL (4.33-5.43)
[2020-01-28 05:26] LABS: Magnesium 1.8 mg/dL (1.8-2.4); Potassium 3.9 mmol/L (3.5-5.1)
[2020-01-28] MEDS ORDERED: MAGNESIUM SULFATE 1 gm IVPB 1 GM/100 ML BAG IV ONE (05:40)
[2020-01-28] MEDS ORDERED: KCL 20 MEQ/100 mL IVPB 20 MEQ/100 ML BAG IV SCH (06:00)
[2020-01-28 06:30] LABS: Blood Morphology Comment NOT SEEN (NOT SEEN); Platelet Estimate ADEQ
[2020-01-28 08:02] LABS: Toxic Granulation PRESENT
[2020-01-28] MEDS: METOPROLOL TAR 50 MG TAB PO SCH ×2 (09:01→20:29)
[2020-01-28] MEDS: HYDRALAZINE HCL 25 MG TABLET PO SCH ×2 (09:01→20:30)
[2020-01-28] MEDS: predniSONE 5 MG TAB PO SCH ×2 (09:01→20:28)
[2020-01-28] MEDS: CLONIDINE HCL 0.3 MG TAB PO SCH ×3 (09:02→20:29)
[2020-01-28] MEDS: TAMSULOSIN 0.4 MG SR CAP PO SCH (09:02)
[2020-01-28] MEDS: Meropenem 1,000 MG in NA CHLORIDE 0.9% 100 ML IV SCH ×2 (09:03→20:28)
[2020-01-28] MEDS ORDERED: LIDOCAINE 1% MPF 5 ML VIAL ONE (09:14)
[2020-01-28] MEDS ORDERED: propofoL 200 MG/20 ML VIAL IV ONE (09:14)
[2020-01-28] MEDS ORDERED: FENTANYL CITR 100 MCG/2 ML ONE (09:14)
[2020-01-28] MEDS ORDERED: Ringers Lactate 1,000 ML IV ONE (09:54)
--- NOTE | 2020-01-28 11:05 | P.PN ---
Subjective Date of Service: 01/28/20 Chief Complaint: fever, weakness Subjective A 69-year-old with PMHx of HTN , prostate CA was on radiation therapy until 2018 and started last month on Zytiga pt was sent fro fever and chills pt was started on Zytiga in december in Er cr 2.6 and elevated to 3.6 today feels better , mild tachycardia Cr improving to 2.0 , cont IVF will reduce rate tomorrow scheduled for debridment today vacn level was high yesterday, dose adjusted Allergies: NO KNOWN ALLERGIES. Medications: Amlodipine 5 mg 2 times a day, aspirin 81 mg daily, clonidine 0.3 mg 3 times a day, hydralazine 50 mg p.o. 2 times a day, hydrochlorothiazide 12.5 mg p.o. daily, lisinopril 20 mg p.o. 2 times a day, metoprolol tartrate 100 mg p.o. 2 times a day, tamsulosin 0.4 mg p.o. daily. Review of Systems: as in HPI Past Medical History: as in HPI Past Surgical History: Partial thyroidectomy in 2014, due to goiter and this was in form of removal of left thyroid lobe. Family History: Father , had coronary artery disease, hypertension. Mother , had Parkinson disease. Social History: Negative for smoking. Occasional use of alcohol. Physical exam general: AAOX3, NAD , obese Neck; Supple, No elevated JVD hear: tachycardia, regular rhythm normal S1,2 no murmur or rub Chest: CTAB, no rales or wheezes Abdomen: Soft , Nt Extremities Lt leg edema and erythema , with Lt leg trace edema A/p CIERA Cr ~1.0 at baseline improving possibly due to septic ATn vs Zytiga will cont IVF renal US no hydro will cont IV for now cont to hold HCTZ UPC 2.0 F/U serology HTN BP controlled Bladder CA hold Zytiga Sepsis possibly due to LE cellulites scheduled for debridment monitor vanco level F/U cultures tachycardia possibly due to sepsis vs reflex from holding BB now restarted on BB Physical Examination - Vital Signs Temperature: 98.3 F Blood Pressure: 160/87 Pulse: 104 Respirations: 18 Pulse Ox (%): 97 - Studies Laboratory Data (last 24 hrs) 01/28/20 04:45: Sodium 142, Potassium 3.9, BUN 48 H, Creatinine 2.05 H, Glucose 90, Magnesium 1.8 01/28/20 04:45: WBC 11.1 H D, Hgb 8.8 L, Hct 25.9 L, Plt Count 262 Microbiology Data (last 24 hrs): 01/22/20 20:05 Blood - Blood Aerobic Blood Culture - Final No growth in 5 days. 01/22/20 20:05 Blood - Blood Anaerobic Blood Culture - Final 01/24/20 13:45 Wound - Left Foot Gram Stain - Final 01/24/20 13:45 Wound - Left Foot Culture & Sensitivity - Final Meth Resistant Staph Aureus Assessment And Plan - Current Problems (Diagnosis) (1) CIERA (acute kidney injury) Current Visit: Yes Status: Acute
[2020-01-28] MEDS ORDERED: ONDANSETRON 4 MG/2 ML VIAL ONE (11:29)
[2020-01-28] MEDS ORDERED: SILVER SULFADIAZINE 1% 25 GM TOP ONE (11:42)
--- NOTE | 2020-01-28 12:00 | P.OP ---
Preoperative diagnosis: Infected wound left lef with cellulitis and lymphedema Postoperative diagnosis: same Primary procedure: Debridement Left Leg and Foot Wound 45x20 cm to Partial Thickness Anesthesia: General Estimated blood loss: min Specimen: Debridement Tissue C&S Findings: as above Complications: None Transferred to: Recovery Room Condition: Good
[2020-01-28] MEDS: MORPHINE 4 MG/ML SYR ONE ×2 (12:33→12:38)
[2020-01-28 13:16] LABS: HIV AG/AB 4TH GEN Non-reactive (Non-reactive)
--- NOTE | 2020-01-28 15:35 | OP ---
Date of Procedure: 01/28/2020 Surgeon: Serg Salcedo MD Preoperative Diagnosis: Infected wound, left lower leg with cellulitis, and lymphedema. Postoperative Diagnosis: Infected wound, left lower leg with cellulitis, and lymphedema. Procedure: Debridement, left leg and foot wound, partial thickness in nature, 45 x 20 cm total surfa ce area. Estimated Blood Loss: Minimal. Specimen: Necrotic tissue and culture and sensitivity. Findings: As above. Anesthesia: General. Complications: None. Disposition: Patient tolerated the procedure in stable condition, taken to Recovery in good general condition. Operative Note: Patient was brought to the OR and placed in supine position, general anesthesia begu n. Patient prepped and draped in the usual sterile fashion. Then, a scrub brush, scissors utilized to remove all of the blisters that extended from a little bit in the thigh on the left side anteriorl y, quite a bit on the left anterior, lateral, and medial leg and quite a bit on the foot and in betwe en the toes, the total area was measured. It was in total 45 x 20 cm and all of these blisters and w ounds were debrided with scissors and scrub brush and pickups to partial thickness level. Entire leg was irrigated and then no evidence of bleeding was noted. Silvadene dressing was applied. The patient was awakened and taken to Recovery in good general condition. /MODL Voice ID: [id number] Report ID: [id number]
[2020-01-28] MEDS: VANCOMYCIN 2 GM in NA CHLORIDE 0.9% 500 ML IVPB SCH (17:06)
[2020-01-28] MEDS: ENOXAPARIN 30 MG/0.3 ML SQ SCH (17:07)
--- NOTE | 2020-01-28 21:11 | PN ---
Date of Progress Note: 01/28/2020 Subjective: Patient was seen this morning for followup. He was lying in bed not in distress, overal l feels better. No new complaints problems reported. No constipation or diarrhea. No shortness of breath. Objective: Vital Signs: Reviewed. HEENT: Unremarkable. Lungs: Clear to auscultation. Cardiac: Heart sounds normal. Abdomen: Soft, bowel sounds normal. No guarding, rigidity, tenderness, or distention. Extremities: Left leg edema is unchanged. Redness of left leg unchanged, but overall much better th an before. Has multiple blisters over left foot and left lower leg more today than yesterday. Laboratory Data: White count 11.1, hemoglobin 8.8, platelets 262. Sodium 142, potassium 3.9, chlori de 110, bicarb 25, BUN 48, creatinine 2.05, glucose 98, magnesium 1.8. Impression: 1.Cellulitis, left leg, organism methicillin resistant Staphylococcus aureus. 2.Acute kidney injury. 3.Hypertension. 4.Paroxysmal atrial fibrillation. Plan: We will go ahead and continue current antibiotic. Patient is responding very well. White cou nt is almost back to normal. Procalcitonin has improved on a day-to-day basis. Renal function is al so improving now for last 48 hours. We will continue current medication, IV fluid, antibiotics. Dr. Salcedo will perform surgery today for debridement of this multiple blisters on left leg and I will see him tomorrow for followup. DAVID/MODL Voice ID: [id number] Report ID: [id number]
[2020-01-29] MEDS: CLINDAMYCIN INJ 600 MG in NA CHLORIDE 0.9% 50 ML IV SCH ×3 (00:09→18:05)
[2020-01-29] MEDS: ACETAMINOPHEN 500 MG TAB PO PRN (00:09)
[2020-01-29] MEDS: NA CHLORIDE 0.9% 1,000 ML IV SCH ×2 (02:00→04:18)
[2020-01-29 04:14] LABS: Absolute Lymphocytes (CBC) 0.3 K/uL (0.7-4.9); Basophils % 0.2 % (0-1.3); MPV 7.3 fL (7.6-11.3); RBC Red Blood Cell Count 2.12 M/uL (4.33-5.43)
[2020-01-29 04:29] LABS: Magnesium 1.7 mg/dL (1.8-2.4); Potassium 3.7 mmol/L (3.5-5.1)
[2020-01-29 04:30] LABS: Hematocrit 19.7 % (39.6-49.0)
[2020-01-29] MEDS ORDERED: MAGNESIUM SULFATE 1 gm IVPB 1 GM/100 ML BAG IV ONE ×2 (04:42→15:00)
[2020-01-29] MEDS ORDERED: POTASSIUM CL SA 10 MEQ TAB PO ONE ×2 (04:42→15:00)
[2020-01-29] MEDS ORDERED: NA CHLORIDE 0.9% 1,000 ML IV SCH (06:00)
[2020-01-29 06:18] LABS: Hematocrit 23.3 % (39.6-49.0)
[2020-01-29] MEDS: predniSONE 5 MG TAB PO SCH ×2 (07:34→20:16)
[2020-01-29] MEDS: HYDRALAZINE HCL 25 MG TABLET PO SCH ×2 (07:34→20:18)
[2020-01-29] MEDS: Meropenem 1,000 MG in NA CHLORIDE 0.9% 100 ML IV SCH ×2 (07:35→20:15)
[2020-01-29] MEDS: CLONIDINE HCL 0.3 MG TAB PO SCH ×3 (07:35→20:16)
[2020-01-29] MEDS: METOPROLOL TAR 50 MG TAB PO SCH ×2 (07:35→20:16)
[2020-01-29] MEDS: TAMSULOSIN 0.4 MG SR CAP PO SCH (07:35)
[2020-01-29] MEDS: FAMOTIDINE 20 MG/2 ML VIAL IV SCH ×2 (07:36→20:18)
[2020-01-29] MEDS: SILVER SULFADIAZINE 1% 50 GM TOP SCH (09:00)
[2020-01-29] MEDS ORDERED: FUROSEMIDE 40 MG/4 ML VIAL IV ONE (10:43)
[2020-01-29] MEDS: SOD FERRIC GLUC COMPLX/SUCROSE 125 MG in NA CHLORIDE 0.9% 100 ML IV SCH (11:40)
--- NOTE | 2020-01-29 15:33 | PN ---
Date of Progress Note: 01/29/2020 Subjective: The patient was admitted with acute kidney injury. Patient has a history of hypertensio n. Patient had a fever and was started on Zytiga. Upon admission, patient was treated as acute kidn ey injury secondary to toxic acute tubular necrosis/Zytiga. After IV fluid, kidney function graduall y started improving. Physical Examination: Vital Signs: When I saw the patient, blood pressure 148/81, pulse of 66. Patient had good urine out put. Chest: Clear to auscultation. Heart: S1, S2. Regular. Abdomen: Soft, nontender. Morbidly obese. Extremity: Dressing on the left leg. Plus edema. Neuro: Alert, no focal. Laboratory Data: H and H 7.8/23.3. Sodium 143, potassium 3.7, bicarb 23. BUN 44, creatinine down t o 1.7, GFR 40, calcium 7, magnesium 1.7. TSH of 0.3. Serology is still pending. P/C ratio of 2. Current Medications: The patient is on, include: 1.Clindamycin. 2.Meropenem. 3.Vancomycin. 4.Flomax. 5.IV iron. 6.Clonidine. 7.Hydralazine. 8.Metoprolol 100 b.i.d. 9.Pepcid. 10.Prednisone. 11.Hydrocodone. Assessment And Plan: 1.Acute kidney injury secondary to prerenal, looked to me normal volume. I am going to go ahead and discontinue intravenous fluid. We will continue to monitor the patient. 2.Proteinuria, possible secondary to obesity. Serology still pending. Possible focal segmental todd merulosclerosis secondary to the obesity. Kidney function improving. I doubt to be any autoimmune d isease. We will continue to monitor the patient. Patient is going to be benefitted as outpatient af ter full recovery of the kidney function, to be started on MEME inhibitor or ARB. 3.Leg infection. As by primary. We will follow up current antibiotic. Follow up vancomycin trough . 4.Hypokalemia and hypomagnesemia. We will supplement. JOSUE/RIMMAL Voice ID: [id number] Report ID: [id number]
[2020-01-29] MEDS: ENOXAPARIN 30 MG/0.3 ML SQ SCH (16:25)
--- NOTE | 2020-01-29 19:33 | PN ---
Subjective: I had a nurse sending pictures of the patient's wound and I contacted the nurse and discussed the details of the wound, as well as evaluated the patient's information on the computer. Patient is without complaints. He says his leg looks better. His pain is better and his vitals are stable. He is afebrile. His white count is 8.5. His H and H are 7.8 and 23.3. Assessment: Status post debridement of left leg infected wounds and cellulitis lymphedema. Recommendations: Continue dressing as ordered and IV antibiotics and discharge planning. EJ/TOM Voice ID: [id number] Report ID: [id number] CHANEL
[2020-01-29] MEDS: HYDROCODONE/APAP 5/325 MG TAB PO PRN (20:16)
--- NOTE | 2020-01-29 21:42 | PN ---
Date of Progress Note: 01/29/2020 Subjective: Patient was seen this morning for followup. He was lying in bed not in distress. Overa ll, he feels better. Objective: Vital Signs: Reviewed. HEENT: Unremarkable. Lungs: Clear to auscultation. Cardiac: Heart sounds normal. Abdomen: Soft, bowel sounds normal. No guarding, rigidity, tenderness, or distention. Extremities: Left leg edema present. Dressing present between knee and foot and left thigh also has a dressing. Visible area of left thigh has swelling present. Right leg no edema. Laboratory Data: Reviewed. Impression: 1.Acute blood loss anemia. 2.Cellulitis, left leg, organism methicillin-resistant Staphylococcus aureus. 3.Acute kidney injury. 4.Hypertension. 5.Paroxysmal atrial fibrillation. Plan: We will go ahead and continue current antihypertensive medication. Blood pressure is under be tter control. Continue current antibiotics and white count is normal. Creatinine is down to 1.7, an d last 3-4 days renal function is steadily improving. The patient's hemoglobin was low this morning, repeat hemoglobin was done and results reviewed. On basis of that no need for blood transfusion. S tool guaiac was ordered and we will give IV Pepcid per order and I will start him on IV iron therapy. Details plan of treatment discussed with the patient. DAVID/MODL Voice ID: [id number] Report ID: [id number]
[2020-01-29 22:22] LABS: Alpha-1-Globulins 0.6 g/dL (0.2-0.3); Alpha-2-Globulins 0.7 g/dL (0.5-0.9); Gamma Globulins 0.7 g/dL (0.8-1.7); INTERPRETATION REPORT
[2020-01-30] MEDS: CLINDAMYCIN INJ 600 MG in NA CHLORIDE 0.9% 50 ML IV SCH ×3 (01:49→17:13)
[2020-01-30 04:32] LABS: HBsAG Nonreactive (Nonreactive)
[2020-01-30] MEDS: VANCOMYCIN 2 GM in NA CHLORIDE 0.9% 500 ML IVPB SCH (05:56)
[2020-01-30 07:11] LABS: Absolute Lymphocytes (CBC) 0.5 K/uL (0.7-4.9); Basophils % 0.2 % (0-1.3); Hematocrit 23.6 % (39.6-49.0); Lymphocytes % 6.1 % (15.3-44.8); MPV 7.4 fL (7.6-11.3); RBC Red Blood Cell Count 2.57 M/uL (4.33-5.43)
[2020-01-30 07:50] LABS: Potassium 4.2 mmol/L (3.5-5.1)
[2020-01-30] MEDS: CLONIDINE HCL 0.3 MG TAB PO SCH ×3 (08:18→21:00)
[2020-01-30] MEDS: ACETAMINOPHEN 500 MG TAB PO PRN (08:18)
[2020-01-30] MEDS: FAMOTIDINE 20 MG/2 ML VIAL IV SCH ×2 (08:19→21:00)
[2020-01-30] MEDS: TAMSULOSIN 0.4 MG SR CAP PO SCH (08:19)
[2020-01-30] MEDS: HYDRALAZINE HCL 25 MG TABLET PO SCH ×2 (08:19→21:00)
[2020-01-30] MEDS: METOPROLOL TAR 50 MG TAB PO SCH ×2 (08:19→21:02)
[2020-01-30] MEDS: SILVER SULFADIAZINE 1% 50 GM TOP SCH (08:21)
[2020-01-30] MEDS ORDERED: FUROSEMIDE 40 MG/4 ML VIAL IV ONE (09:16)
[2020-01-30] MEDS: predniSONE 5 MG TAB PO SCH ×2 (09:39→21:00)
[2020-01-30] MEDS: SOD FERRIC GLUC COMPLX/SUCROSE 125 MG in NA CHLORIDE 0.9% 100 ML IV SCH (09:39)
[2020-01-30] MEDS: HYDROCODONE/APAP 5/325 MG TAB PO PRN ×3 (09:47→23:15)
[2020-01-30] MEDS: Meropenem 1,000 MG in NA CHLORIDE 0.9% 100 ML IV SCH ×2 (10:40→21:00)
--- NOTE | 2020-01-30 15:24 | PN ---
Date of Progress Note: 01/30/2020 Subjective: Patient was admitted with acute kidney injury secondary to toxic ATN, has cellulitis and proteinuria, has anasarca. Yesterday, we discontinued intravenous fluid. Kidney function continued to improve. Physical Examination: Vital Signs: Blood pressure 165/70, pulse of 83, T-max of 100.7. Patient had good urine output of 1 800. Chest: Decreased air entry, bilateral bases. Heart: S1, S2. Regular. Extremity: +1 edema. Laboratory Data: Patient's WBC 7.7, H and H 8/23.6, platelets 295. Sodium 140, potassium 4.2, bicar b 25, BUN 46, creatinine down to 1.5, GFR of 45, calcium 8, magnesium of 2. P/C ratio of 2. Current Medications: The patient is on include: 1.Clindamycin. 2.Meropenem. 3.Vancomycin. 4.Flomax. 5.IV iron. 6.Lovenox. 7.Hydralazine. 8.Clonidine. 9.Metoprolol 100 b.i.d. 10.Tylenol. 11.Pepcid. 12.Prednisone. 13.KCl. Assessment And Plan: 1.Acute kidney injury secondary to prerenal/toxic acute tubular necrosis. Continues to recover, loo ks still slightly on the wet side. I am going to start the patient on gentle diuresis. Patient rece ived yesterday and today Lasix. We will start the patient on spironolactone given the proteinuria an d the hypokalemia and we will follow up. 2.Hypokalemia and hypomagnesemia. Continue supplement. We will start the patient on spironolactone . 3.Peripheral edema and significant proteinuria with normal TSH, mostly secondary to body habitus/obe sity. We are not going to start any MEME inhibitor or ARB for the time being. Start the patient on s pironolactone. We will follow up. 4.Cellulitis. Continue current antibiotic. He we will follow up with the primary, dose appropriate . 5.Hypertension. IV fluid has been discontinued. We will add spironolactone, p.r.n. Lasix. Continu e current treatment. Keep holding MEME inhibitor or ARB. JOSUE/TOM Voice ID: [id number] Report ID: [id number]
[2020-01-30] MEDS: ENOXAPARIN 30 MG/0.3 ML SQ SCH (16:08)
--- NOTE | 2020-01-30 17:31 | PN ---
Subjective: Patient's wounds pictures were shared to me by the nurse and clinical evaluation was don e with the nurse as well as the computer information. Objective: General: Patient is awake, alert. No new complaints. Vital signs: Stable. He is afebrile. Extremities: Examination of the left leg reveals some blistering behind the ankle and near the foot that needs some bedside debridement. Overall, the swelling has gone down and the redness has improve d. Laboratory Data: Cultures are pending. White count is 7.7. Assessment: Cellulitis, lymphedema, left lower extremity with wounds. Recommendations: Tomorrow morning, we will debride at the bedside. Continue IV antibiotics and woun d care as ordered. /MODL Voice ID: [id number] Report ID: [id number]
--- NOTE | 2020-01-30 19:45 | PN ---
Date of Progress Note: 01/30/2020 Subjective: Patient was seen this morning for followup. No new complaints or problems reported by evie bianchi. Lying in bed, not in any distress. Objective: Vital Signs: Reviewed. HEENT: Unremarkable. Lungs: Clear to auscultation. Heart: Sounds normal. Abdomen: Soft. Bowel sounds normal. No guarding, rigidity, tenderness, or distention. Extremities: No leg edema of the right extremity. Left lower extremity leg edema is still significan t, about grade 3 to grade 4. Dressing present covering most of the left lower extremity, but the vis ible part has significant leg edema. Left medial thigh skin that is visible also has redness along w ith the swelling. Laboratory Data: White count 7.7, hemoglobin 8, platelets 295. Sodium 140, potassium 4.2, chloride 108, bicarb 25, BUN 46, creatinine 1.53, glucose 91, magnesium 2. Impression: 1.Cellulitis, left leg, organism methicillin-resistant Staphylococcus aureus. 2.Acute kidney injury, improving. 3.Anemia. 4.Hypertension. 5.Paroxysmal atrial fibrillation. Plan: We will go ahead and continue current medications. Continue current antibiotic. Patient is r esponding well to the current combination of antibiotics, which will be continued at present time. W e will continue to follow with Dr. Salcedo, continue Lovenox, and yesterday the patient was started on IV iron and we will continue that as well. No need for blood transfusion at present time. Lasix 40 mg IV x1 dose was ordered to be gi sangeetha today. DAVID/MODL Voice ID: [id number] Report ID: [id number]
[2020-01-31] MEDS: CLINDAMYCIN INJ 600 MG in NA CHLORIDE 0.9% 50 ML IV SCH ×3 (01:26→17:15)
[2020-01-31] MEDS: FAMOTIDINE 20 MG/2 ML VIAL IV SCH ×2 (09:00→20:09)
[2020-01-31] MEDS: SILVER SULFADIAZINE 1% 50 GM TOP SCH (09:00)
[2020-01-31] MEDS: Meropenem 1,000 MG in NA CHLORIDE 0.9% 100 ML IV SCH ×2 (09:12→20:07)
[2020-01-31] MEDS: SOD FERRIC GLUC COMPLX/SUCROSE 125 MG in NA CHLORIDE 0.9% 100 ML IV SCH (09:13)
[2020-01-31] MEDS: TAMSULOSIN 0.4 MG SR CAP PO SCH (09:15)
[2020-01-31] MEDS: SPIRONOLACTONE 25 MG TABLET PO SCH (09:15)
[2020-01-31] MEDS: HYDRALAZINE HCL 25 MG TABLET PO SCH ×2 (09:15→20:08)
[2020-01-31] MEDS: CLONIDINE HCL 0.3 MG TAB PO SCH ×3 (09:15→20:08)
[2020-01-31] MEDS: predniSONE 5 MG TAB PO SCH ×2 (09:16→20:08)
[2020-01-31] MEDS: METOPROLOL TAR 50 MG TAB PO SCH ×2 (09:16→20:08)
[2020-01-31 10:40] LABS: Absolute Lymphocytes (CBC) 0.5 K/uL (0.7-4.9); Lymphocytes % 7.1 % (15.3-44.8); MPV 7.8 fL (7.6-11.3); RBC Red Blood Cell Count 2.74 M/uL (4.33-5.43)
[2020-01-31] MEDS: HYDROCODONE/APAP 5/325 MG TAB PO PRN (10:40)
[2020-01-31 10:48] LABS: Magnesium 1.9 mg/dL (1.8-2.4)
[2020-01-31] MEDS ORDERED: ALTEPLASE 2 MG/VIAL IV SCH (12:00)
[2020-01-31] MEDS ORDERED: CHLORHEXIDINE GLUCO 4% 120 ML TOP SCH (12:00)
[2020-01-31] MEDS ORDERED: FUROSEMIDE 20 MG/ 2ML VIAL IV ONE ×2 (12:07→15:00)
--- NOTE | 2020-01-31 12:09 | P.PN ---
Subjective Date of Service: 01/31/20 Chief Complaint: fever, weakness Subjective A 69-year-old with PMHx of HTN , prostate CA was on radiation therapy until 2018 and started last month on Zytiga pt was sent fro fever and chills pt was started on Zytiga in december in [place] cr 2.6 and elevated to 3.6 today Cr cont to improve S/O debridment monitor vanco level Bp elevated , started on aldactone will give lasix X1 Allergies: NO KNOWN ALLERGIES. Medications: Amlodipine 5 mg 2 times a day, aspirin 81 mg daily, clonidine 0.3 mg 3 times a day, hydralazine 50 mg p.o. 2 times a day, hydrochlorothiazide 12.5 mg p.o. daily, lisinopril 20 mg p.o. 2 times a day, metoprolol tartrate 100 mg p.o. 2 times a day, tamsulosin 0.4 mg p.o. daily. Review of Systems: as in HPI Past Medical History: as in HPI Past Surgical History: Partial thyroidectomy in 2014, due to goiter and this was in form of removal of left thyroid lobe. Family History: Father , had coronary artery disease, hypertension. Mother , had Parkinson disease. Social History: Negative for smoking. Occasional use of alcohol. Physical exam general: AAOX3, NAD , obese Neck; Supple, No elevated JVD hear: tachycardia, regular rhythm normal S1,2 no murmur or rub Chest: CTAB, no rales or wheezes Abdomen: Soft , Nt Extremities Lt leg erythema , edema +1 A/p CIERA Cr ~1.0 at baseline improving possibly due to septic ATn vs Zytiga will cont IVF renal US no hydro will cont IV for now cont to hold HCTZ UPC 2.0 F/U serology HTN elevated startted on aldactone will give lasix X1 Bladder CA hold Zytiga Sepsis possibly due to LE cellulites S/P debridment monitor vanco level F/U cultures Physical Examination - Vital Signs Temperature: 97.3 F Blood Pressure: 195/87 Pulse: 75 Respirations: 18 Pulse Ox (%): 96 - Studies Laboratory Data (last 24 hrs) 01/31/20 09:40: Sodium 142, Potassium 4.0, BUN 36 H, Creatinine 1.25, Glucose 101, Magnesium 1.9 01/31/20 09:40: WBC 6.3 D, Hgb 8.4 L, Hct 25.0 L, Plt Count 362 D Microbiology Data (last 24 hrs): 01/28/20 12:08 Wound - L Leg (Lower) Gram Stain - Final 01/28/20 12:08 Wound - L Leg (Lower) Culture & Sensitivity - Final Meth Resistant Staph Aureus Assessment And Plan - Current Problems (Diagnosis) (1) CIERA (acute kidney injury) Current Visit: Yes Status: Acute
--- NOTE | 2020-01-31 12:41 | PN ---
Date of Progress Note: 01/31/2020 Subjective: Patient was seen this morning for followup. No new complaints or problems reported by evie bianchi. He was lying in bed, not in distress. Objective: Vital Signs: Reviewed. HEENT: Unremarkable. Lungs: Clear to auscultation. Heart: Sounds normal. Abdomen: Soft. Bowel sounds normal. No guarding, rigidity, tenderness, or distention. Extremities: Left leg edema present, but better today than last 2-3 days. Redness from left thigh a nd visible area of left leg around the knee is better today than last few days. Rest of the left low er extremity is covered with dressing. Laboratory Data: Pending. Impression: 1.Cellulitis, left leg, organism methicillin-resistant Staphylococcus aureus. 2.Acute kidney injury. 3.Anemia. 4.Hypertension. 5.Paroxysmal atrial fibrillation. Plan: We will continue current medication. Continue Lovenox for DVT prophylaxis. We will follow up on blood work and then make a decision about IV Lasix. Patient has received IV Lasix for the last 2 days and that actually has resulted in improvement in the leg swelling. Hopefully, we will be able to give another dose today depending on the blood test result. Details and plan of treatment discuss ed with the patient. Continue current antibiotics and physical therapy to help ambulate the patient. DAVID/MODL Voice ID: [id number] Report ID: [id number]
--- NOTE | 2020-01-31 12:41 | PN ---
Date of Progress Note: 01/31/2020 Subjective: Patient is awake, alert. No complaints. Objective: Vital Signs: Stable. He is afebrile. Extremities: Examination of the left leg revealed a few blisters towards the ankle and the foot and some dried skin, which was debrided at the bedside and a lot of the wound is healing up very nicely. There is still some erythema and lymphedema but the swelling has gone down and clinically looks much better. Laboratory Data: Reviewed. His white count is 6.3, neutrophil left shift has improved. His culture s from the OR growing out MRSA sensitive to vancomycin. Assessment: Status post debridement left leg infected wound with cellulitis and lymphedema. Recommendation: Wound care as ordered. Patient cleared for discharge on IV antibiotics and will fol low up [facility] in my clinic. I will discuss the plan of care with Dr. Cates. EJ/TOM Voice ID: [id number] Report ID: [id number]
[2020-01-31] MEDS: MUPIROCIN 2% OINT 22GM TUBE TOP SCH ×2 (13:16→20:09)
[2020-01-31] MEDS: VITAMIN A 10,000 IU CAP PO SCH (13:17)
[2020-01-31] MEDS: ENOXAPARIN 30 MG/0.3 ML SQ SCH (17:15)
[2020-01-31] MEDS: VANCOMYCIN 2 GM in NA CHLORIDE 0.9% 500 ML IVPB SCH (18:13)
[2020-02-01] MEDS: CLINDAMYCIN INJ 600 MG in NA CHLORIDE 0.9% 50 ML IV SCH ×3 (00:05→17:27)
[2020-02-01] MEDS: METOPROLOL TAR 50 MG TAB PO SCH ×2 (08:57→20:27)
[2020-02-01] MEDS: predniSONE 5 MG TAB PO SCH (08:57)
[2020-02-01] MEDS: TAMSULOSIN 0.4 MG SR CAP PO SCH (08:57)
[2020-02-01] MEDS: CLONIDINE HCL 0.3 MG TAB PO SCH ×3 (08:58→20:27)
[2020-02-01] MEDS: SPIRONOLACTONE 25 MG TABLET PO SCH (08:58)
[2020-02-01] MEDS: HYDRALAZINE HCL 25 MG TABLET PO SCH ×3 (08:58→20:27)
[2020-02-01] MEDS: Meropenem 1,000 MG in NA CHLORIDE 0.9% 100 ML IV SCH ×2 (08:59→20:26)
[2020-02-01] MEDS: FAMOTIDINE 20 MG/2 ML VIAL IV SCH ×2 (08:59→20:26)
[2020-02-01] MEDS: SOD FERRIC GLUC COMPLX/SUCROSE 125 MG in NA CHLORIDE 0.9% 100 ML IV SCH (08:59)
[2020-02-01] MEDS ORDERED: FUROSEMIDE 40 MG/4 ML VIAL IV ONE (08:59)
[2020-02-01] MEDS: SILVER SULFADIAZINE 1% 50 GM TOP SCH (09:00)
[2020-02-01] MEDS: MUPIROCIN 2% OINT 22GM TUBE TOP SCH ×2 (09:00→20:28)
[2020-02-01] MEDS: AMLODIPINE 5 MG TAB PO SCH (10:30)
[2020-02-01] MEDS: VITAMIN A 10,000 IU CAP PO SCH (10:31)
[2020-02-01] MEDS: HYDROCODONE/APAP 5/325 MG TAB PO PRN (14:22)
--- NOTE | 2020-02-01 15:39 | PN ---
Date of Progress Note: 02/01/2020 Subjective: The patient was seen this morning for followup. No new complaints or problems reported by him. Yesterday, he was able to get in and out of bed to the bedside chair. He is overall feeling better. Objective: Vital Signs: Reviewed. HEENT: Unremarkable. Lungs: Clear to auscultation. No rhonchi or rales. Heart: Sounds normal. Abdomen: Soft. Bowel sounds normal. No guarding, rigidity, tenderness, or distention. Extremities: Left leg dressing present, but visible part of left thigh and area around the left knee , redness and swelling are better compared to yesterday. Laboratory Data: There were no labs done this morning. Yesterday's lab results reviewed. Impression: 1.Cellulitis, left leg, improving. 2.Acute kidney injury, resolved. 3.Hypertension. 4.Paroxysmal atrial fibrillation. 5.Anemia. Plan: We will go ahead and continue current IV iron therapy. The patient's hemoglobin for last 2-3 days is steadily increasing slowly. We will continue current antibiotics. Lasix 40 mg IV x1 dose wi ll be given today per order, so today is day #4 on IV Lasix therapy. We will give him amlodipine 5 m g daily, increase dose of hydralazine from 25 mg twice a day to 50 mg twice a day as blood pressure r emains elevated and continue other current antihypertensive medications. He is getting clonidine and metoprolol per order. Continue Lovenox. We will repeat blood work tomorrow and I will see him tomorrow. DAVID/MODL Voice ID: [id number] Report ID: [id number]
[2020-02-01] MEDS: ENOXAPARIN 30 MG/0.3 ML SQ SCH (17:28)
[2020-02-02] MEDS: CLINDAMYCIN INJ 600 MG in NA CHLORIDE 0.9% 50 ML IV SCH ×3 (00:20→17:16)
[2020-02-02 04:18] LABS: Absolute Lymphocytes (CBC) 0.6 K/uL (0.7-4.9); Basophils % 0.4 % (0-1.3); Hematocrit 24.1 % (39.6-49.0); Lymphocytes % 9.4 % (15.3-44.8); MPV 7.6 fL (7.6-11.3); RBC Red Blood Cell Count 2.66 M/uL (4.33-5.43)
[2020-02-02 04:32] LABS: Magnesium 1.7 mg/dL (1.8-2.4); Potassium 3.7 mmol/L (3.5-5.1)
[2020-02-02] MEDS ORDERED: POTASSIUM CL SA 10 MEQ TAB PO ONE (04:43)
[2020-02-02] MEDS ORDERED: MAGNESIUM SULFATE 1 gm IVPB 1 GM/100 ML BAG IV ONE (04:43)
[2020-02-02] MEDS: VANCOMYCIN 2 GM in NA CHLORIDE 0.9% 500 ML IVPB SCH (05:16)
--- NOTE | 2020-02-02 07:45 | PN ---
Date of Progress Note: 02/01/2020 Chief Complaint: Acute kidney injury. History Of Present Illness: Patient has nonoliguric urine output. He developed prerenal azotemia and nonoliguric ATN. Patient was admitted to the hospital because of debridement of the lower extremity and treatment for wound infection in the lower extremity. Patient is a 69-year-old man with a history of hypertension and prostate cancer, underwent radiation in October 2019 and last month he was started on Zytiga. He came to the emergency room because of fever and chills. He was started on Zytiga in December. On arrival to the ER, creatinine level was 2.6 and previously was elevated during this admission up to 3.6. Patient is taking multiple medications for blood pressure including hydrochlorothiazide, lisinopril, and amlodipine. Review of Systems: Patient denies fever or chills. Physical Examination: Lungs: Diminished breath sounds at bases. Heart: S1, S2. Abdomen: Soft, benign. Extremities: Edema present. Dressing in place. Blood Work: Sodium is 140, potassium 4.0, chloride 109, CO2 of 26, BUN 36, creatinine 1.25, magnesium 1.9, calcium 8.6. Impression And Plan: 1. Acute kidney injury, nonoliguric. Renal function has improved over last several days. Creatinine is improving from 3.6 gradually to 1.25. Continue to monitor renal function. Avoid nephrotoxic medication. 2. Hypertension. Continue blood pressure medication. 3. Lower extremity infection and cellulitis. Continue antibiotics. Adjust antibiotics to kidney function. 4. Edema. Patient may need diuretic to control edema. 5. History of prostate cancer. Patient will continue adequate p.o. fluid intake and he is on Flomax to prevent bladder outlet obstruction. Patient was treated with Zytiga, currently is on hold. He will follow up with the urologist and oncologist. 6. Patient has chronic kidney disease stage 3. Baseline creatinine level 1.0. He developed acute kidney injury secondary to nonoliguric acute tubular necrosis versus Zytiga. Patient completed IV fluids. Renal ultrasound did not show hydronephrosis. Continue to hold hydrochlorothiazide. Monitor blood pressure and adjust medications accordingly. I spent total 36 min including 25 min to coordinate care plan. MILES/TOM Voice ID: [id number] Report ID: [id number] MTDD
[2020-02-02] MEDS: ACETAMINOPHEN 500 MG TAB PO PRN (08:12)
[2020-02-02] MEDS: TAMSULOSIN 0.4 MG SR CAP PO SCH (08:13)
[2020-02-02] MEDS: HYDRALAZINE HCL 25 MG TABLET PO SCH ×2 (08:13→20:15)
[2020-02-02] MEDS: CLONIDINE HCL 0.3 MG TAB PO SCH ×3 (08:13→20:16)
[2020-02-02] MEDS: FAMOTIDINE 20 MG/2 ML VIAL IV SCH ×2 (08:13→20:16)
[2020-02-02] MEDS: METOPROLOL TAR 50 MG TAB PO SCH ×2 (08:14→20:15)
[2020-02-02] MEDS: AMLODIPINE 5 MG TAB PO SCH (08:14)
[2020-02-02] MEDS: SPIRONOLACTONE 25 MG TABLET PO SCH (08:14)
[2020-02-02] MEDS: VITAMIN A 10,000 IU CAP PO SCH (08:14)
[2020-02-02] MEDS: predniSONE 5 MG TAB PO SCH (08:14)
[2020-02-02] MEDS: Meropenem 1,000 MG in NA CHLORIDE 0.9% 100 ML IV SCH ×2 (08:15→20:16)
[2020-02-02] MEDS ORDERED: FUROSEMIDE 40 MG/4 ML VIAL IV ONE (09:07)
--- NOTE | 2020-02-02 09:15 | PN ---
This is a telephonic note with via telemedicine. Patient is awake, alert, no complaints. Vital signs are stable. His temperature is 99.8, white count is 6.2, H and H are 8.2 and 24.1. Electrolytes reviewed and picture reviewed. On physical exam, picture reviewed via text and there is no open wound. There is dry skin all around . The redness is markedly decreased as had the swelling. There is no purulent discharge anywhere on the dressing. Assessment: Cellulitis, infected wound, left leg improving. Recommendations: We will switch the dressing to Lidex. Medical management per Dr. Cates. Continue I V antibiotics and follow up in the [facility] upon discharge and discharge planning. /MODL Voice ID: [id number] Report ID: [id number]
[2020-02-02] MEDS: POTASSIUM CL SA 10 MEQ TAB PO SCH ×2 (09:44→20:15)
[2020-02-02] MEDS: SOD FERRIC GLUC COMPLX/SUCROSE 125 MG in NA CHLORIDE 0.9% 100 ML IV SCH (09:45)
--- NOTE | 2020-02-02 10:10 | PN ---
Date of Progress Note: 02/02/2020 Subjective: Patient was seen this morning for followup. He was feeling much better. Yesterday, he did ambulate with the physical therapy and walked about 200 feet. He is using walker to ambulate. D enies any constipation problem. Pain in left leg is much better. Objective: Vital Signs: Reviewed. HEENT: Unremarkable. Lungs: Clear to auscultation. Heart: Sounds normal. Abdomen: Soft. Bowel sounds normal. No guarding, rigidity, tenderness, or distention. Extremities: Left leg edema present, but it is improving with Lasix therapy. Today, dressing from l eft leg was removed and left leg appears significantly better, compared to how it was before. Patien t had surgery done by Dr. Salcedo. Patient had multiple blisters on the left leg, all of those blister s have completely resolved. His edema from left lower leg between knee and foot is significantly bet ter. He has more edema in the thigh compared to the lower leg. Skin: An area between knee and foot is faintly pink to brownish in color and some area has loss of e pidermal skin where he had blisters, but there are no new blisters and no discharge, no bleeding. Le ft thigh has little bit more pinkish discoloration of the skin compared to lower today, but once agai n, overall entire left lower extremity appears significantly better than before. Laboratory Data: White count 6.2, hemoglobin 8.2, platelets 385. Sodium 140, potassium 3.7, chlorid e 108, bicarb 29, BUN 26, creatinine 1.11, glucose 84, magnesium 1.7. Impression: 1.Left leg cellulitis, organism methicillin-resistant Staphylococcus aureus. 2.Acute kidney injury, resolved. 3.Anemia, stable. 4.Hypertension. 5.Paroxysmal atrial fibrillation. Plan: We will continue current anticoagulation therapy, antibiotics, Lasix 40 mg IV x1 dose will be given. Considering today's potassium value, we will go ahead and give some oral potassium replacemen t. Intake and output records reviewed. Ambulation was encouraged. I will see him tomorrow for foll owup and we will request Social Service now to go ahead and start making arrangements for patient to go home with home IV antibiotic therapy. Plan is to continue vancomycin at home probably for about 2 weeks and we will change IV clindamycin to oral clindamycin upon discharge. Details and plan of nicole atment discussed with the patient. DAVID/MODL Voice ID: [id number] Report ID: [id number]
[2020-02-02] MEDS: FLUOCINONIDE 0.05% CREAM 30GM TOP SCH (10:59)
[2020-02-02] MEDS: MUPIROCIN 2% OINT 22GM TUBE TOP SCH ×2 (10:59→20:17)
[2020-02-02] MEDS: ENOXAPARIN 30 MG/0.3 ML SQ SCH (17:16)
--- NOTE | 2020-02-02 22:25 | PN ---
Date of Progress Note: 02/02/2020 Chief Complaint: Acute kidney injury. History Of Present Illness: Patient has nonoliguric urine output. Patient has nonoliguric ATN, prerenal azotemia. He underwent debridement of lower extremities, wound infection and cellulitis. The patient is on vancomycin. Review of Systems: Denies fever or chills. Physical Examination: Lungs: Clear to auscultation bilaterally. Heart: S1, S2. Abdomen: Soft, benign. Extremities: Edema present in both legs, improving. Assessment And Plan: 1. Acute kidney injury. Renal function is gradually improving. Monitor electrolytes. Adjust treatment with electrolytes, replacement as needed. Patient will continue diuretics for control of leg edema. Patient is on antibiotic for osteomyelitis. 2. History of prostate cancer. Continue to adjust adequate hydration. The patient tolerates p.o. intake. We will continue Flomax to prevent bladder outlet obstruction. Patient was treated with Zytiga. Currently, it is on hold because of the concern that it is the cause of acute kidney injury, although he will need to resume medication with Urology. 3. Acute on chronic kidney injury with hypertensive heart and kidney disease. Patient is improving with renal functions. Continue to hold diuretics. Patient is off hydrochlorothiazide. MILES/TOM Voice ID: [id number] Report ID: [id number] CHANEL
[2020-02-03] MEDS: CLINDAMYCIN INJ 600 MG in NA CHLORIDE 0.9% 50 ML IV SCH ×3 (00:01→17:39)
[2020-02-03] MEDS: cloNIDine HCL 0.1 MG TAB PO PRN ×3 (00:55→05:26)
[2020-02-03 05:43] LABS: Magnesium 1.8 mg/dL (1.8-2.4); Potassium 3.9 mmol/L (3.5-5.1)
[2020-02-03] MEDS ORDERED: FUROSEMIDE 40 MG/4 ML VIAL IV ONE (07:33)
[2020-02-03] MEDS ORDERED: MAGNESIUM SULFATE 1 gm IVPB 1 GM/100 ML BAG IV ONE (08:00)
[2020-02-03] MEDS: Meropenem 1,000 MG in NA CHLORIDE 0.9% 100 ML IV SCH ×2 (08:07→21:26)
[2020-02-03] MEDS: SPIRONOLACTONE 25 MG TABLET PO SCH (08:08)
[2020-02-03] MEDS: predniSONE 5 MG TAB PO SCH (08:09)
[2020-02-03] MEDS: ENOXAPARIN 30 MG/0.3 ML SQ SCH ×2 (08:09→21:25)
[2020-02-03] MEDS: VITAMIN A 10,000 IU CAP PO SCH (08:09)
[2020-02-03] MEDS: TAMSULOSIN 0.4 MG SR CAP PO SCH (08:09)
[2020-02-03] MEDS: POTASSIUM CL SA 10 MEQ TAB PO SCH ×2 (08:09→21:25)
[2020-02-03] MEDS: AMLODIPINE 5 MG TAB PO SCH (08:10)
[2020-02-03] MEDS: HYDRALAZINE HCL 25 MG TABLET PO SCH ×2 (08:10→21:25)
[2020-02-03] MEDS: FAMOTIDINE 20 MG/2 ML VIAL IV SCH ×2 (08:11→21:25)
[2020-02-03] MEDS: METOPROLOL TAR 50 MG TAB PO SCH ×2 (08:11→21:25)
[2020-02-03] MEDS: FLUOCINONIDE 0.05% CREAM 30GM TOP SCH (08:12)
[2020-02-03] MEDS: MUPIROCIN 2% OINT 22GM TUBE TOP SCH ×2 (08:12→21:27)
[2020-02-03] MEDS: CLONIDINE HCL 0.3 MG TAB PO SCH ×3 (09:08→21:24)
[2020-02-03] MEDS: SOD FERRIC GLUC COMPLX/SUCROSE 125 MG in NA CHLORIDE 0.9% 100 ML IV SCH (10:31)
[2020-02-03] MEDS: ACETAMINOPHEN 500 MG TAB PO PRN (11:58)
--- NOTE | 2020-02-03 17:08 | PN ---
Subjective: Patient is awake, alert, no complaints, feels better. Objective: Vitals: Stable. He is afebrile. Extremities: Leg looked much better. Very little dry skin, improving. Very little redness. Yodit hicks is down. No open wounds. Laboratory Data: His laboratory data and pictures reviewed that the nursing staff sent me. Assessment: Cellulitis of the wound, left leg, improving, status post debridement. Recommendation: Lidex dressing as ordered and IV antibiotics as ordered. Discharge planning. Layla w rogerio in the [facility] upon discharge. /MODL Voice ID: [id number] Report ID: [id number]
[2020-02-03] MEDS: VANCOMYCIN 2 GM in NA CHLORIDE 0.9% 500 ML IVPB SCH (18:25)
--- NOTE | 2020-02-03 20:23 | PN ---
Date of Progress Note: 02/03/2020 Subjective: Patient was seen this morning for followup. No new complaints, problems reported by him . Objective: General: Lying in bed in distress. Vital signs: Reviewed. HEENT: Unremarkable. Lung: S clear to auscultation. Cardiac: Heart sounds normal. Abdomen: Soft. Bowel sounds normal. No guarding, rigidity, tenderness, distention. Extremities: Left leg edema remains unchanged from yesterday. Dressing present over left leg betwee n knee and foot. Laboratory Data: Sodium 141, potassium 3.9, chloride 106, bicarb 30, BUN 21, creatinine 1.07, glucos e 91, magnesium 1.8. Impression: 1.Cellulitis, left leg, organism methicillin resistant Staphylococcus aureus. 2.Acute kidney injury, resolved. 3.Hypertension. 4.Anemia. Plan: We will go ahead and continue current antibiotics. Social service consultation was requested to make arrangements for patient to have IV antibiotic which is vancomycin at home for 2 weeks. Poss ible discharge to go home in next 1 or 2 days. We will repeat blood work tomorrow morning. Physical therapy to help ambulate the patient and I will see him tomorrow for followup. Lasix 40 mg IV x1 dose was ordered to be given today. DAVID/MODL Voice ID: [id number] Report ID: [id number]
--- NOTE | 2020-02-03 23:47 | PN ---
Date of Progress Note: 02/03/2020 Chief Complaint: Acute kidney injury. Subjective: Patient has nonoliguric urine output. Patient developed ATN, prerenal azotemia, and during this admission, he underwent debridement of the lower extremity infection and cellulitis with nonhealing wounds. Patient is on vancomycin. Renal function has improved in response to IV fluids. Electrolytes are stable. Review of Systems: Denies fever, chills. Physical Examination: Lungs: Clear to auscultation bilaterally. Heart: S1, S2. Abdomen: Soft, benign. Extremities: Edema is improving. Assessment And Plan: 1. Acute on chronic kidney injury. Monitor electrolytes. Avoid nephrotoxic medication. Patient has adequate hydration by mouth. Continue IV hydration as needed. 2. Osteomyelitis. Patient is on antibiotics for nonhealing lower extremity wound with osteomyelitis. Monitor vancomycin level and electrolytes. Renal panel will be done in the morning. MILES/TOM Voice ID: [id number] Report ID: [id number] CHANEL
[2020-02-04] MEDS: CLINDAMYCIN INJ 600 MG in NA CHLORIDE 0.9% 50 ML IV SCH ×3 (01:00→17:20)
[2020-02-04 05:05] LABS: Absolute Lymphocytes (CBC) 0.4 K/uL (0.7-4.9); Basophils % 0.8 % (0-1.3); Hematocrit 24.5 % (39.6-49.0); Lymphocytes % 10.1 % (15.3-44.8); MPV 7.1 fL (7.6-11.3); RBC Red Blood Cell Count 2.66 M/uL (4.33-5.43)
[2020-02-04 05:19] LABS: Magnesium 1.8 mg/dL (1.8-2.4)
[2020-02-04] MEDS ORDERED: MAGNESIUM SULFATE 1 gm IVPB 1 GM/100 ML BAG IV ONE ×2 (05:23→11:10)
[2020-02-04] MEDS ORDERED: FUROSEMIDE 40 MG/4 ML VIAL IV ONE ×2 (07:30→11:10)
[2020-02-04] MEDS: VITAMIN A 10,000 IU CAP PO SCH (09:00)
[2020-02-04] MEDS: POTASSIUM CL SA 10 MEQ TAB PO SCH ×2 (09:00→21:10)
[2020-02-04] MEDS: MUPIROCIN 2% OINT 22GM TUBE TOP SCH ×2 (09:00→21:12)
[2020-02-04] MEDS: Meropenem 1,000 MG in NA CHLORIDE 0.9% 100 ML IV SCH ×2 (09:00→21:11)
[2020-02-04] MEDS: AMLODIPINE 5 MG TAB PO SCH (09:00)
[2020-02-04] MEDS: ENOXAPARIN 30 MG/0.3 ML SQ SCH ×2 (09:00→21:09)
[2020-02-04] MEDS: TAMSULOSIN 0.4 MG SR CAP PO SCH (09:00)
[2020-02-04] MEDS: predniSONE 5 MG TAB PO SCH (09:00)
[2020-02-04] MEDS: METOPROLOL TAR 50 MG TAB PO SCH ×2 (09:00→21:10)
[2020-02-04] MEDS: SPIRONOLACTONE 25 MG TABLET PO SCH (09:00)
[2020-02-04] MEDS: HYDRALAZINE HCL 25 MG TABLET PO SCH ×3 (09:00→21:09)
[2020-02-04] MEDS: CLONIDINE HCL 0.3 MG TAB PO SCH ×3 (09:00→21:10)
[2020-02-04] MEDS: FAMOTIDINE 20 MG/2 ML VIAL IV SCH ×2 (09:00→21:11)
[2020-02-04] MEDS: SOD FERRIC GLUC COMPLX/SUCROSE 125 MG in NA CHLORIDE 0.9% 100 ML IV SCH (09:30)
[2020-02-04] MEDS: FLUOCINONIDE 0.05% CREAM 30GM TOP SCH (16:47)
--- NOTE | 2020-02-04 18:39 | PN ---
Date of Progress Note: 02/04/2020 Subjective: Patient was seen this morning for followup. No new complaints or problems reported by evie bianchi. Lying in bed, not in distress. He is ambulating well with physical therapy. Reports that y day he ambulated 300 feet. Objective: Vital Signs: Reviewed. HEENT: Unremarkable. Lungs: Clear to auscultation. Heart: Sounds normal. Abdomen: Soft. Bowel sounds normal. No guarding, rigidity, tenderness, or distention. Extremities: Left leg edema significantly better. Skin discoloration from left thigh and left leg r emains unchanged from yesterday. Laboratory Data: White count 4.4, hemoglobin 8.3, platelets 380. Chemistry: Sodium 141, potassium 4, chloride 106, bicarb 31, BUN 19, creatinine 1.09, glucose 86, magnesium 1.8. Impression: 1.Cellulitis, left leg, organism methicillin-resistant Staphylococcus aureus. 2.Acute kidney injury. 3.Paroxysmal atrial fibrillation. 4.Hypertension. 5.Anemia. Plan: We will go ahead and continue current medications. Continue current IV antibiotic. Social Se steiner is making arrangements for patient to go home with home IV antibiotic therapy. Possible discha rge to go home today or tomorrow. Details and plan of treatment discussed with patient. We will giv e ahead and give 1 dose of Lasix 40 mg IV today. Leg swelling is improving very well on a day-to-day basis in the last few days. Appropriate form was signed for patient to get a walker at home. DAVID/MODL Voice ID: [id number] Report ID: [id number]
[2020-02-04] MEDS: GUAIFENESIN/DM 5 ML UCUP PO PRN (23:30)
--- NOTE | 2020-02-04 23:35 | PN ---
Date of Progress Note: 02/04/2020 Subjective: The patient was admitted with acute kidney injury secondary to prerenal. Patient also h as hypomagnesemia. Physical Examination: Vital Signs: When I saw the patient, blood pressure 161/81, pulse of 76. Chest: Clear to auscultation. Heart: S1, S2. Regular. Abdomen: Soft. Nontender. Extremities: Dressing on the left leg. +1 edema. Neurologic: Alert. No focal. Laboratory Data: Sodium 141, potassium 4, bicarb 31, BUN 19, creatinine down to 1, calcium 8.6, magn esium 1.8. Current Medications: The patient is on include; amlodipine 5 mg, clonidine 0.3 t.i.d., hydralazine, metoprolol, spironolactone 25 daily, Lasix 40, be receiving daily Pepcid, prednisone. Assessment And Plan: 1.Acute kidney injury secondary to prerenal/toxic acute tubular necrosis, recovered, resolved. Curr ently, has significant peripheral edema. I am going to give the patient extra dose of Lasix and I wi ll maintain the patient on Lasix daily. 2.Hypertension, controlled, optimal. We will utilize the blood pressure for more diuresis given the peripheral edema. We are going to try to wean off calcium channel carrie. 3.Hypokalemia, responding very well to current spironolactone dose. We will continue. 4.Hypomagnesemia. We will supplement. 5.Cellulitis, as by primary. JOSUE/TOM Voice ID: [id number] Report ID: [id number]
[2020-02-05] MEDS: CLINDAMYCIN INJ 600 MG in NA CHLORIDE 0.9% 50 ML IV SCH ×3 (01:06→17:41)
[2020-02-05] MEDS: cloNIDine HCL 0.1 MG TAB PO PRN ×3 (02:23→14:57)
[2020-02-05] MEDS: GUAIFENESIN/DM 5 ML UCUP PO PRN ×2 (05:50→17:46)
[2020-02-05] MEDS: VANCOMYCIN 2 GM in NA CHLORIDE 0.9% 500 ML IVPB SCH (06:27)
[2020-02-05] MEDS: ENOXAPARIN 30 MG/0.3 ML SQ SCH ×2 (08:47→21:41)
[2020-02-05] MEDS: METOPROLOL TAR 50 MG TAB PO SCH (08:47)
[2020-02-05] MEDS: TAMSULOSIN 0.4 MG SR CAP PO SCH (08:47)
[2020-02-05] MEDS: CLONIDINE HCL 0.3 MG TAB PO SCH ×3 (08:48→21:40)
[2020-02-05] MEDS: HYDRALAZINE HCL 25 MG TABLET PO SCH ×3 (08:48→17:39)
[2020-02-05] MEDS: VITAMIN A 10,000 IU CAP PO SCH (08:49)
[2020-02-05] MEDS: predniSONE 5 MG TAB PO SCH ×2 (08:49→21:42)
[2020-02-05] MEDS: FAMOTIDINE 20 MG/2 ML VIAL IV SCH ×2 (08:49→21:41)
[2020-02-05] MEDS: Meropenem 1,000 MG in NA CHLORIDE 0.9% 100 ML IV SCH ×2 (08:50→21:42)
[2020-02-05] MEDS: MUPIROCIN 2% OINT 22GM TUBE TOP SCH ×2 (08:51→21:43)
[2020-02-05] MEDS: FLUOCINONIDE 0.05% CREAM 30GM TOP SCH (08:51)
[2020-02-05] MEDS ORDERED: FUROSEMIDE 40 MG/4 ML VIAL IV SCH (09:00)
[2020-02-05] MEDS ORDERED: AMLODIPINE 10 MG TAB PO SCH (09:00)
--- NOTE | 2020-02-05 09:29 | RAD REPORT ---
EXAM DESCRIPTION: Rosa M Single View02/05/2020 9:16 am CLINICAL HISTORY: Cough COMPARISON: January 24, 2020 FINDINGS: The lungs appear clear of acute infiltrate. The heart is mildly enlarged IMPRESSION: No acute abnormalities displayed
[2020-02-05] MEDS: SOD FERRIC GLUC COMPLX/SUCROSE 125 MG in NA CHLORIDE 0.9% 100 ML IV SCH (10:10)
[2020-02-05] MEDS: ACETAMINOPHEN 500 MG TAB PO PRN (11:51)
--- NOTE | 2020-02-05 12:52 | PN ---
Date of Progress Note: 02/05/2020 Subjective: Patient was admitted with cellulitis, anasarca, acute kidney injury. Patient being on d iuresis. Patient's blood pressure being poorly controlled. Physical Examination: Vital Signs: Blood pressure 190/93, pulse of 70, afebrile. Patient had good urine output as weight mathews the patient lost in the last 2 days 5 pounds, stable from admission. Chest: Decreased entry bilateral base. Heart: S1, S2. Regular. Abdomen: Soft, nontender. Extremities: Trace edema. Dressing on the left leg. Neuro: Alert, no focal. Laboratory Data: WBC 4.4, H and H 8.3/24.5, platelets 380. Sodium 140, potassium 4, bicarb 30, BUN 21, creatinine 1.2, calcium 8.5, magnesium of 2. Current Medications: The patient on include hydralazine 100 t.i.d., vancomycin, clindamycin, meropen em, Flomax 0.4 daily, amlodipine 10 mg, metoprolol 100 b.i.d., clonidine 0.3 t.i.d., Lasix 80 daily, and vitamin E. Assessment And Plan: 1.Acute kidney injury secondary to prerenal, recovered, resolved. 2.Hypertension, not controlled. There is disproportion in the kidney size 10/26. I reviewed the CT scan with contrast with Radiology. There is no sign for any renal artery stenosis. I going to go a head and discontinue amlodipine, place the patient on nifedipine, increase his hydralazine to 100 q.6 . Continue clonidine. We will add Cardura. We will switch from metoprolol to carvedilol for better blood pressure control and we will follow up the patient. I am going to go ahead and send for patricia casanova, plasma renin activity. We will consider adding angiotensin converting enzyme inhibitor if kidne y function plateau as today his kidney function is slightly lower than yesterday. 3.Cellulitis. Continue current antibiotic. Vancomycin trough noted. 4.Anasarca. Continue diuresis. I decreased the Lasix to 40 mg and we will follow up. JOSUE/RIMMAL Voice ID: [id number] Report ID: [id number]
[2020-02-05] MEDS: carvediloL 25 MG TAB PO SCH (17:39)
--- NOTE | 2020-02-05 21:45 | PN ---
Date of Progress Note: 02/05/2020 Please note this is a telemedicine dictation. Subjective: Patient is awake, alert, no complaints. Objective: Vitals Signs: Stable. He is afebrile. Extremities: Examination of the left leg reveals marked improvement in the swelling; however, patien t has dry skin and scaling of skin. There is an area on the dorsum of the foot where he has lymphede ma, fluid oozing from it. There is no obvious open wound that can be visualized. Laboratory Data: Chemistry reviewed. Assessment: Cellulitis, lymphedema, left lower extremity with infected wounds. Recommendations: Continue IV antibiotics and will utilize A and D ointment for the dry skin and calc ium alginate for the drainage area. We will re-evaluate tomorrow. EJ/TOM Voice ID: [id number] Report ID: [id number]
--- NOTE | 2020-02-05 21:58 | PN ---
Date of Progress Note: 02/05/2020 Subjective: Patient was seen this morning for followup. He is having cough as of yesterday last night. He was started on some cough medicine. Objective: Vital Signs: Reviewed. HEENT: Unremarkable. Lungs: Clear to auscultation. Heart: Sounds normal. Abdomen: Soft. Bowel sounds normal. No guarding, rigidity, tenderness, or distention. Extremities: No edema of right leg. Left leg has significant edema still present of left thigh. Edema from lower leg below the knee has improved. Laboratory Data: Sodium 141, potassium 4, chloride 105, bicarb 30, BUN 21, creatinine 1.28. Yesterday, creatinine was 1.09, day before 1.07. Impression: 1. Acute kidney injury, improved. 2. Urinary tract infection, organism methicillin-resistant Staphylococcus aureus. 3. Anemia. 4. Prostate cancer. 5. Hypertension. Plan: We will continue current Lovenox. Continue iron supplement, antihypertensive medication, IV Lasix which is 80 mg daily. We will discontinue spironolactone as I have seen slight deterioration of renal function and we will stop the spironolactone. Stop potassium replacement. We will monitor blood work tomorrow, get a chest x-ray done today, and continue current antibiotics. DAVID/MODL Voice ID: [id number] Report ID: [id number] MTDD
[2020-02-06] MEDS: GUAIFENESIN/DM 5 ML UCUP PO PRN ×2 (00:43→06:34)
[2020-02-06] MEDS: CLINDAMYCIN INJ 600 MG in NA CHLORIDE 0.9% 50 ML IV SCH ×2 (00:44→08:54)
[2020-02-06] MEDS: HYDRALAZINE HCL 25 MG TABLET PO SCH ×2 (00:44→06:30)
[2020-02-06 05:50] LABS: Absolute Lymphocytes (CBC) 0.4 K/uL (0.7-4.9); Basophils % 1.2 % (0-1.3); Hematocrit 24.6 % (39.6-49.0); Lymphocytes % 9.6 % (15.3-44.8); MPV 7.2 fL (7.6-11.3); RBC Red Blood Cell Count 2.69 M/uL (4.33-5.43)
[2020-02-06 06:16] LABS: Magnesium 1.9 mg/dL (1.8-2.4); Potassium 3.8 mmol/L (3.5-5.1)
[2020-02-06] MEDS: carvediloL 25 MG TAB PO SCH (06:30)
[2020-02-06 08:42] VITALS: BP 160/74; TEMP 97.7
[2020-02-06 08:52] VITALS: O2SAT 92
[2020-02-06] MEDS: ENOXAPARIN 30 MG/0.3 ML SQ SCH (08:52)
[2020-02-06] MEDS: TAMSULOSIN 0.4 MG SR CAP PO SCH (08:53)
[2020-02-06] MEDS: CLONIDINE HCL 0.3 MG TAB PO SCH (08:53)
[2020-02-06] MEDS: predniSONE 5 MG TAB PO SCH (08:53)
[2020-02-06] MEDS: FAMOTIDINE 20 MG/2 ML VIAL IV SCH (08:53)
[2020-02-06] MEDS: VITAMIN A 10,000 IU CAP PO SCH (08:54)
[2020-02-06] MEDS: MUPIROCIN 2% OINT 22GM TUBE TOP SCH (08:55)
[2020-02-06] MEDS ORDERED: FUROSEMIDE 40 MG/4 ML VIAL IV SCH (09:00)
[2020-02-06] MEDS ORDERED: POTASSIUM CL SA 10 MEQ TAB PO ONE (09:00)
[2020-02-06] MEDS: Meropenem 1,000 MG in NA CHLORIDE 0.9% 100 ML IV SCH (09:00)
[2020-02-06] MEDS ORDERED: NIFEDIPINE XL 60 MG TABLET PO SCH (09:00)
[2020-02-06] MEDS ORDERED: DOXAZOSIN 2 MG TAB PO SCH (09:00)
--- NOTE | 2020-02-06 13:23 | PN ---
Date of Progress Note: 02/06/2020 Subjective: Patient was admitted with anasarca, acute kidney injury. Patient has been diuresed very well. Physical Examination: Vital Signs: When I saw the patient, blood pressure better controlled today down to 140, currently 1 60/74, pulse of 65. Chest: Decreased entry, bilateral base. Heart: S1, S2. Regular. Abdomen: Morbidly obese. Extremities: Dressing on the left foot, trace edema on the right. Laboratory Data: WBC 4, H and H 8.3/24.6, platelets 313. Sodium 139, potassium 3.9, bicarb 30, BUN 19, creatinine 1.1, GFR of 66, magnesium 1.9. Current Medications: The patient on, include nifedipine 60 mg, carvedilol 25 b.i.d., clindamycin, Pe pcid, Lasix 40 daily, meropenem, prednisone, and Flomax. Assessment And Plan: 1.Acute kidney injury, secondary to prerenal, toxic acute tubular necrosis, recovered, resolved. 2.Hypertension, better controlled. Continue current medication. We will follow up hormonal workup as outpatient. Continue current diuresis. 3.Edema. Continue Lasix. Spironolactone was held. 4.Cellulitis. We will follow up with the primary. Patient cleared from the renal standpoint for di scharge planning. JACKIE Voice ID: [id number] Report ID: [id number]
--- NOTE | 2020-02-06 19:20 | DS ---
Date of Discharge: 02/06/2020 Disposition: Discharged to go home. Physical Examination: HEENT: Unremarkable. Lungs: Clear to auscultation. Heart: Sounds normal. Abdomen: Soft. Bowel sounds normal. No guarding, rigidity, tenderness, or distention. Extremities: No edema of right leg. Left leg edema present, but overall much better than before. Patient still has edema of thigh and lower leg. Redness of left leg and left thigh skin is significantly better than before. Right leg has no edema or redness. Laboratory Data: Today, white count 4, hemoglobin 8.3, platelets 313. Chemistry today; sodium 139, potassium 3.8, chloride 104, bicarb 30, BUN 19, creatinine 1.10, glucose 89, magnesium 1.9. Lowest hemoglobin was 6.6 on 2019 and patient did not require any blood transfusion. Repeat hemoglobin the same day came back 7.8. When patient was first admitted on 01/22/2020, white count 10.2, hemoglobin 11.9, platelets 181. Wound culture grew MRSA from left foot. Initial creatinine was 2.87. Highest creatinine was 3.60 and last 6 days of the hospital stay, creatinine has come down to normal and remained normal. Initial potassium was 3.1, lowest potassium 2.7, and last potassium today 4. Initial magnesium 2, lowest magnesium 1.5, last magnesium today 1.8. Stool guaiac was negative. Echocardiogram done during this hospitalization showed normal ejection fraction. Hospital Course: This is a 69-year-old very pleasant male patient who came into my office with complaints of fever, chills, feeling weak. Please see dictated H and P for more information. After patient was evaluated in the office, he was admitted to the hospital. I was concerned about possibility of sepsis along with cellulitis of left lower extremity. His blood culture was done before starting antibiotics and blood culture remained negative. Patient had some blisters type of area on the left dorsum foot with some clear drainage and culture was sent from that which grew methicillin-resistant staphylococcus aureus. Subsequently, he had multiple blisters over left lower extremity and Dr. Salcedo was consulted and he did a debridement procedure and culture was sent during that time and that also grew MRSA. Initially, patient was on ceftriaxone , then we added doxycycline, and then subsequently we discontinued both of those medications, started patient on vancomycin, clindamycin and meropenem combination, which he continued during this hospital stay. His cellulitis has improved significantly. Initially, he had low blood pressure, which has improved and he started to have his blood pressure on high side requiring frequent adjustment of antihypertensive medication, so we did have to make adjustment on his medications from time to time during this hospital stay. He did have 1 episode of paroxysmal atrial fibrillation and that actually he responded well to IV metoprolol. Subsequently, he has not had any more atrial fibrillation. Patient received Lovenox throughout this hospital stay. His acute renal failure problem resolved and his renal function is back to normal. Ultrasound was unremarkable, which is ultrasound of kidney and bladder. Nephrology consultation was requested. Patient did have significant edema of left lower extremity and he responded well to IV Lasix therapy. Physical Therapy was consulted. Overall, his condition has improved and he is ambulating well. Pain from left leg has improved significantly and today he was discharged to go home in stable condition. He is having some cough in the last 2 to 3 days. Chest x-ray yesterday was negative for any pneumonia. He is responding well to cough medicine like Robitussin DM and he was continued upon discharge. Final Diagnoses: 1. Cellulitis, left leg, organism methicillin-resistant Staphylococcus aureus. 2. Acute kidney failure, resolved. 3. Anemia, unspecified. 4. Hypokalemia. 5. Hypomagnesemia. 6. Hypertension. 7. Mixed hyperlipidemia. 8. Lymphedema, legs. 9. Morbid obesity. 10. Prostate cancer. Discharge Medications And Instructions: 1. Continue prior home medication. 2. Vancomycin 2 g IV piggyback every 36 hours for 2 weeks. 3. Home health nurse to flush PICC line per protocol, change PICC line dressing per protocol, and assist patient with IV antibiotic therapy and draw CBC, chem-7, and mag with every third dose of vancomycin. 4. Follow up at my office in 1 week. 5. Follow up with Dr. Salcedo in 1 to 2 weeks. DAVID/MODL Voice ID: [id number] Report ID: [id number] CHANEL
== END 2020-02-06 10:30 | disposition home health service (06) | DRG 871 ==
LOC: 4TH 19:25
PROVIDERS: ADMIT Internal Medicine; ATTEND Internal Medicine
PROC: 02HV33Z Insertion of Infusion Device into Superior Vena Cava, Percutaneous Approach (ICD-10-PCS; 2020-01-24)
PROC: 0JDR3ZZ Extraction of Left Foot Subcutaneous Tissue and Fascia, Percutaneous Approach (ICD-10-PCS; 2020-01-28)
PROC: 0JDP3ZZ Extraction of Left Lower Leg Subcutaneous Tissue and Fascia, Percutaneous Approach (ICD-10-PCS; principal; 2020-01-28 10:00)
DX: A41.9 Sepsis, unspecified organism (principal); N17.0 Acute kidney failure with tubular necrosis; L03.116 Cellulitis of left lower limb; Z68.42 Body mass index [BMI] 45.0-49.9, adult; E87.1 Hypo-osmolality and hyponatremia; D62 Acute posthemorrhagic anemia; N39.0 Urinary tract infection, site not specified; M86.9 Osteomyelitis, unspecified; Z92.3 Personal history of irradiation; Z79.899 Other long term (current) drug therapy; E78.2 Mixed hyperlipidemia; E66.01 Morbid (severe) obesity due to excess calories; Z79.52 Long term (current) use of systemic steroids; C61 Malignant neoplasm of prostate; E87.6 Hypokalemia; R00.0 Tachycardia, unspecified; I48.0 Paroxysmal atrial fibrillation; E83.42 Hypomagnesemia; C67.9 Malignant neoplasm of bladder, unspecified; R65.20 Severe sepsis without septic shock; B95.62 Methicillin resistant Staphylococcus aureus infection as the cause of diseases classified elsewhere; I13.10 Hypertensive heart and chronic kidney disease without heart failure, with stage 1 through stage 4 chronic kidney disease, or unspecified chronic kidney disease; N18.3 Chronic kidney disease, stage 3 (moderate)
CPT/HCPCS: 36415; 36569; 71045; 71046; 76770; 76857; 80048; 80053; 80202; 81001; 82088; 82274; 82533; 82550; 82553; 82570; 83520; 83605; 83735; 84100; 84132; 84145; 84156; 84165; 84244; 84443; 84484; 84550; 85014; 85018; 85025; 86021; 86038; 86160; 86317; 86430; 86705; 86706; 86803; 87040; 87070; 87075; 87077; 87086; 87088; 87186; 87205; 87340; 87389; 87804; 88304; 93005; 93306; 93970; 97110; 97116; 97161; 97530; J0696; J1200; J1453; J1642; J1650; J1940; J2405; J2469; J2704; J2916; J2997; J3010; J3475; J7030; J7040; J7120; J7512; Q5117

== ENCOUNTER 2020-02-28 19:23 | Inpatient (IN) | payer OTHER ==
[2020-02-28 20:24] LABS: Absolute Lymphocytes (CBC) 0.5 K/uL (0.7-4.9); Basophils % 0.1 % (0-1.3); Lymphocytes % 2.8 % (15.3-44.8); RBC Red Blood Cell Count 3.79 M/uL (4.33-5.43)
--- NOTE | 2020-02-28 20:31 | RAD REPORT ---
EXAM DESCRIPTION: Rosa M Single View02/28/2020 8:22 pm CLINICAL HISTORY: sob COMPARISON: January 2020 FINDINGS: The lungs appear clear of acute infiltrate. The heart is borderline enlarged IMPRESSION: No acute abnormalities displayed
[2020-02-28 20:35] LABS: Arterial Blood Carboxyhemoglob 1.4 % (0-1.5); Blood Gas Oxyhemoglobin 96.6 % (94-97); Blood O2 Saturation 98.5 % (92-98.5)
[2020-02-28 20:41] LABS: Protime INR 1.3
[2020-02-28 20:50] LABS: ALT/SGPT 16 U/L (12-78); AST/SGOT 10 U/L (15-37); Albumin 2.7 g/dL (3.4-5.0); Alkaline Phosphatase 93 U/L (45-117); Amylase Level 13 U/L (25-115); BUN Blood Urea Nitrogen 24 mg/dL (7-18); Bicarbonate 25 mmol/L (21-32); Bilirubin Direct 0.1 mg/dL (0-0.2); Bilirubin Total 0.4 mg/dL (0.2-1.0); CKMB Creatine Kinase MB < 1.0 ng/mL (0.3-3.6); Creatine Phosphokinase 30 U/L (39-308); Glucose Level 132 mg/dL (74-106); Lipase 35 U/L (73-393); Protein, Total 7.1 g/dL (6.4-8.2); Sodium Level 133 mmol/L (136-145); Troponin (Emerg Dept Use Only) 0.04 ng/mL (0.0-0.045)
[2020-02-28] MEDS ORDERED: NA CHLORIDE 0.9% 500 ML ONE (20:50)
[2020-02-28] MEDS ORDERED: NA CHLORIDE 0.9% 2,000 ML ONE (20:50)
[2020-02-28 20:55] LABS: Potassium 2.8 mmol/L (3.5-5.1)
[2020-02-28 21:17] LABS: Blood Morphology Comment NOT SEEN (NOT SEEN); Platelet Estimate ADEQ
--- NOTE | 2020-02-28 21:17 | ER ---
Nurse's Notes [facility] Name: Acosta Ha Age: 69 yrs Sex: Male : 1950 Arrival Date: 02/28/2020 Time: 19:25 Bed 30 Private MD: Diagnosis: Sepsis, unspecified organism;Dehydration;Hypokalemia;Acute kidney failure, unspecified Presentation: 02/27 19:25 Method Of Arrival: EMS: [facility] fc 19:25 Chief complaint: EMS states: that they were toned for pt having nausea/vomiting x 4 fc days, SOB on exertion and fever (mas 100.4) . Pt also has hx of staph infection to left lower leg that he is being treated for. Coronavirus screen: Surgical mask placed on patient. Patient moved to private room, placed in contact and droplet isolation with eye protection until further assessment. Patient denies a cough. Patient reports shortness of breath or difficulty breathing. Patient reports a measured and/or subjective temperature greater than 100.4F. Patient denies travel on a cruise ship or to a country the [facility] currently lists as an affected area. Patient denies contact with known and/or suspected case of COVID-19. Ebola Screen: Patient negative for fever greater than or equal to 101.5 degrees Fahrenheit, and additional compatible Ebola Virus Disease symptoms Patient denies exposure to infectious person. Patient denies travel to an Ebola-affected area in the 21 days before illness onset. Initial Sepsis Screen: Does the patient meet any 2 criteria?. Initial Sepsis Screen: Does the patient meet any 2 criteria? RR > 20 per min. HR > 90 bpm. Yes Does the patient have a suspected source of infection? Yes: Productive cough/pneumonia Skin breakdown/wound If YES to both, name of provider notified: Rell Norwood MD Risk Assessment: Do you want to hurt yourself or someone else? Patient reports no desire to harm self or others. Onset of symptoms was February 24, 2020. Care prior to arrival: Medication(s) given: Normal saline infusion, 200 ml IV initiated. 20 GA, in the left antecubital area. Transition of care: patient was not received from another setting of care. 19:25 Acuity: BARRIE 2 fc Triage Assessment: 19:25 General: Appears distressed, uncomfortable, ill, obese, Behavior is cooperative, ls4 anxious. 19:25 Pain: Denies pain. Neuro: Level of Consciousness is awake, alert, obeys commands, ls4 Oriented to person, place, time, situation. Cardiovascular: Capillary refill < 3 seconds Clubbing of nail beds is absent Patient's skin is warm and dry. Rhythm is sinus tachycardia Chest pain is denied. Cardiovascular: Edema is 3+ to left midcalf, left ankle and left foot Parent/caregiver reports patient has had no cardiovascular symptoms. Cardiovascular: Pulses are palpable in right radial artery, right posterior tibial artery, left radial artery and left posterior tibial artery. Respiratory: Reports shortness of breath at rest on exertion since 4 days labored breathing since 4 days Onset: The symptoms/episode began/occurred gradually, the patient has severe shortness of breath. GI: Reports diarrhea, since 4 days. : No signs and/or symptoms were reported regarding the genitourinary system. Derm: left lower leg cellulitis, healing as per patient. Musculoskeletal: Reports weakness in generalized. Historical: - Allergies: 19:44 No Known Allergies; fc - PMHx: 19:44 Prostate Cancer; Hypertension; Staph Infection to left lower leg; fc - PSHx: 19:44 Partial thyroidectomy; fc - Immunization history:: Last tetanus immunization: unknown, Flu vaccine is up to date. - Social history:: Smoking status: Patient denies any tobacco usage or history of. Patient uses alcohol, occasionally. Screenin:25 Abuse screen: Denies threats or abuse. Nutritional screening: No deficits noted. fc Tuberculosis screening: No symptoms or risk factors identified. Fall Risk Fall in past 12 months (25 points). Secondary diagnosis (15 points) impaired mobility, IV access (20 points). Ambulatory Aid- Crutches/Cane/Walker (15 pts). Gait- Weak (10 pts.). Mental Status- Overestimates/Forgets Limitations (15 pts.). Total Beth Fall Scale indicates High Risk Score (45 or more points). Fall prevention measures have been instituted. Side Rails Up X 2 Placed Close to Nursing Station Frequent Obs/Assessments Occuring As available patient and family educated on Fall Prevention Program and Strategies. Assessment: 20:27 Cardiovascular: Denies chest pain, Rhythm is sinus tachycardia Chest pain is denied. ls4 Respiratory: Airway is patent Respiratory effort is labored, Respiratory pattern is regular, symmetrical, tachypnea Breath sounds are diminished bilaterally. Vital Signs: 19:25 BP 130 / 89; Pulse 134; Resp 22; Temp 100.7(O); Pulse Ox 96% on R/A; Weight 142.43 kg fc (R); Height 5 ft. 9 in. (175.26 cm) (R); Pain 0/10; 22:00 BP 120 / 80; Pulse 120; Resp 20; Pulse Ox 100% on R/A; Pain 0/10; ls4 23:00 BP 138 / 84; Pulse 116; Resp 22; Pulse Ox 100% on R/A; Pain 0/10; ls4 19:25 Body Mass Index 46.37 (142.43 kg, 175.26 cm) fc ED Course: 19:25 Patient arrived in ED. ds1 19:25 Arm band placed on Patient placed in an exam room, on a stretcher. fc 19:25 Patient has correct armband on for positive identification. Placed in gown. Bed in low fc position. Call light in reach. Side rails up X2. monitoring tech on. Pulse ox on. NIBP on. 19:25 No provider procedures requiring assistance completed. Maintain EMS IV. Dressing fc intact. Good blood return noted. Site clean \T\ dry. Gauge \T\ site: 20 gauge to left a/c. 19:27 Pillow given. PO fluids given. Verbal reassurance given. assisted to commode. Droplet ls4 isolation initiated. 19:38 Triage completed. fc 19:42 Rell Norwood MD is Attending Physician. tw4 20:00 Initial lab(s) drawn, by me, sent to lab. First set of blood cultures drawn by me ls4 Second set of blood cultures drawn by me, EKG done, by ED staff, reviewed by Rell Norwood MD Flu and/or RSV swab sent to lab. Strep swab sent to lab. ABG drawn. by RT staff, on room air. X-ray(s) taken. covid complete. 20:09 Cinthia Moss, DARIO is Primary Nurse. ls4 20:21 Chest Single View XRAY Sent. ls4 20:22 Chest Single View XRAY In Process Unspecified. EDMS 21:15 Isaias Cates MD is Hospitalizing Provider. tw4 23:02 Patient admitted, IV remains in place. Patient maintains SpO2 saturation greater than ls4 95% on room air. 23:04 Report given to Daiana BISHOP 4th floor. ls4 Administered Medications: 20:11 Drug: NS 0.9% (30 ml/kg) 4300 ml Route: IV; Rate: bolus; Site: left antecubital; ls4 21:15 Drug: Rocephin - (cefTRIAXone) 1 grams Route: IVPB; Infused Over: 10 mins; Site: left ls4 antecubital; 21:22 Drug: Motrin 600 mg Route: PO; ls4 21:22 Drug: Tylenol 1000 mg Route: PO; ls4 21:25 Drug: LevaQUIN 500 mg Volume: 100 ml; Route: IVPB; Infused Over: 60 mins; Site: left ls4 antecubital; 22:11 Drug: Lopressor 5 mg Route: IVP; Site: left antecubital; ls4 22:13 Drug: Potassium Effervescent Tablet 50 mEq Route: PO; ls4 Intake: 19:06 IV: 500ml; Total: 500ml. ls4 Outcome: 21:16 Decision to Hospitalize by Provider. tw4 23:01 Admitted to Tele accompanied by samuel, room 413, with chart, Report called to daiana bishop ls4 23:01 Condition: stable 23:01 Instructed on the need for admit. 23:48 Patient left the ED. ls4 Signatures: Dispatcher [employer] EDMS [facility] Rell Norwood MD MD tw4 Cinthia Moss RN RN ls4 Corrections: (The following items were deleted from the chart) 19:38 19:30 Chief complaint: [facility] 19:40 19:25 142.43 kg; Height 5 ft. 9 in.; BMI: 46.3; Pain 0/10; [facility] 23:14 21:20 Rocephin - (cefTRIAXone) 1 grams IVPB in left antecubital over 10 mins ls4 ls4
--- NOTE | 2020-02-28 21:17 | EDPHYS ---
Physician Documentation [facility] Name: Acosta Ha Age: 69 yrs Sex: Male : 1950 Arrival Date: 02/28/2020 Time: 19:25 Bed 30 Private MD: ED Physician Rell Norwood HPI: 02/27 23:56 This 69 yrs old Male presents to ER via EMS with complaints of Shortness Of tw4 Breath. 23:56 The patient has shortness of breath at rest. Onset: The symptoms/episode began/occurred tw4 yesterday. Duration: The symptoms are continuous, and are unchanged since they started. The patient's shortness of breath has no apparent modifying factors. Severity of symptoms: At their worst the symptoms were moderate in the emergency department the symptoms are unchanged. The patient has not experienced similar symptoms in the past. Historical: - Allergies: 19:44 No Known Allergies; fc - PMHx: 19:44 Prostate Cancer; Hypertension; Staph Infection to left lower leg; fc - PSHx: 19:44 Partial thyroidectomy; fc - Immunization history:: Last tetanus immunization: unknown, Flu vaccine is up to date. - Social history:: Smoking status: Patient denies any tobacco usage or history of. Patient uses alcohol, occasionally. ROS: 23:56 Constitutional: Negative for fever, chills, and weight loss, Eyes: Negative for injury, tw4 pain, redness, and discharge, Cardiovascular: Negative for chest pain, palpitations, and edema. 23:56 Back: Negative for injury and pain, MS/Extremity: Negative for injury and deformity, Skin: Negative for injury, rash, and discoloration. 23:56 Respiratory: Positive for shortness of breath, on exertion. 23:56 Abdomen/GI: Positive for diarrhea. 23:56 Neuro: Positive for weakness. Exam: 23:56 Constitutional: This is a well developed, well nourished patient who is awake, alert, tw4 and in no acute distress. Head/Face: Normocephalic, atraumatic. Chest/axilla: Normal chest wall appearance and motion. Nontender with no deformity. No lesions are appreciated. 23:56 Respiratory: Lungs have equal breath sounds bilaterally, clear to auscultation and percussion. No rales, rhonchi or wheezes noted. No increased work of breathing, no retractions or nasal flaring. Abdomen/GI: Soft, non-tender, with normal bowel sounds. No distension or tympany. No guarding or rebound. No evidence of tenderness throughout. Back: No spinal tenderness. No costovertebral tenderness. Full range of motion. Neuro: Awake and alert, GCS 15, oriented to person, place, time, and situation. Cranial nerves II-XII grossly intact. Motor strength 5/5 in all extremities. Sensory grossly intact. Cerebellar exam normal. Normal gait. 23:56 Cardiovascular: Rate: tachycardic, actual rate is 134 bpm, Rhythm: regular, Pulses: no pulse deficits are appreciated. 23:56 Musculoskeletal/extremity: Extremities: noted in the left hutchinson: pain, swelling, tenderness, ROM: no acute changes. Vital Signs: 19:25 BP 130 / 89; Pulse 134; Resp 22; Temp 100.7(O); Pulse Ox 96% on R/A; Weight 142.43 kg fc (R); Height 5 ft. 9 in. (175.26 cm) (R); Pain 0/10; 22:00 BP 120 / 80; Pulse 120; Resp 20; Pulse Ox 100% on R/A; Pain 0/10; ls4 23:00 BP 138 / 84; Pulse 116; Resp 22; Pulse Ox 100% on R/A; Pain 0/10; ls4 19:25 Body Mass Index 46.37 (142.43 kg, 175.26 cm) fc MDM: 19:42 Patient medically screened. tw4 23:56 Differential diagnosis: Anemia Anxiety Reaction. Antibiotic administration: Levaquin tw4 given, Rocephin and Zithromax given. Data reviewed: vital signs, nurses notes. Data interpreted: Pulse oximetry: Interpretation:. Counseling: I had a detailed discussion with the patient and/or guardian regarding: the historical points, exam findings, and any diagnostic results supporting the discharge/admit diagnosis. Special discussion: I discussed with the patient/guardian in detail that at this point there is no indication for admission to the hospital. It is understood, however, that if the symptoms persist or worsen the patient needs to return immediately for re-evaluation. 02/27 19:44 Order name: ABG; Complete Time: :17 tw4 02/27 19:44 Order name: Amylase, Serum; Complete Time: 21:13 02/27 21:13 Interpretation: Within normal limits: ANASTACIA 13. 02/27 19:44 Order name: Basic Metabolic Panel; Complete Time: 21:13 02/27 21:13 Interpretation: Normal except: NA 133; K 2.8; GLUC 132; BUN 24; CRE 2.11; GFR 31. 02/27 19:44 Order name: Blood Culture Adult (2) 02/27 19:44 Order name: CBC with Diff; Complete Time: 21:17 02/27 21:13 Interpretation: WBC 18.6; RBC 3.79; HGB 11.8; HCT 35.0; LYM% 2.8; WAN% 90.7; RDW 16.7; tw4 PLT 283; NEUT A 16.9; LYMA 0.5. 02/27 19:44 Order name: Ckmb; Complete Time: 21:13 02/27 21:14 Interpretation: Within normal limits: CKMB < 1.0. 02/27 19:44 Order name: CPK; Complete Time: 21:13 02/27 21:13 Interpretation: Normal except: CPK 30. 02/27 19:44 Order name: Lactate; Complete Time: 21:13 02/27 21:13 Interpretation: Abnormal: LAC 2.3. 02/27 19:44 Order name: LFT's; Complete Time: 21:13 02/27 19:44 Order name: Lipase; Complete Time: 21:13 02/27 21:14 Interpretation: Normal except: LIP 35. 02/27 19:44 Order name: Procalcitonin; Complete Time: 21:13 02/27 21:14 Interpretation: Within normal limits: Procalcitonin 0.50. 02/27 19:44 Order name: Protime (+inr); Complete Time: 21:13 02/27 21:14 Interpretation: Normal except: PT 15.3. 02/27 19:44 Order name: Ptt, Activated; Complete Time: 21:13 02/27 21:14 Interpretation: Within normal limits: PTT 25.1. 02/27 19:44 Order name: Troponin (emerg Dept Use Only); Complete Time: 21:13 [facility] 02/27 21:14 Interpretation: Within normal limits: TROPED 0.04. [facility] 02/27 19:44 Order name: Urine Microscopic Only [facility] 02/27 19:44 Order name: Chest Single View XRAY; Complete Time: 21:13 02/27 21:14 Interpretation: No acute disease. [facility] 02/27 19:44 Order name: COVID-19 [facility] 02/27 19:44 Order name: Flu; Complete Time: 21:13 [facility] 02/27 19:44 Order name: Strep [facility] 02/27 20:16 Order name: Rotavirus Antigen [facility] 02/27 20:16 Order name: Stool Culture [facility] 02/27 20:16 Order name: Ova And Parasites [facility] 02/27 20:16 Order name: Fecal Leukocyte Stain [facility] 02/27 20:16 Order name: Occult Blood [facility] 02/27 21:17 Order name: Manual Differential; Complete Time: 21:17 [facility] 02/27 21:25 Order name: Throat Culture [facility] 02/27 22:39 Order name: Lipid Profile [facility] 02/27 22:39 Order name: Lipid Profile [facility] 02/27 19:44 Order name: Cardiac monitoring; Complete Time: 20:09 02/27 19:44 Order name: EKG - Nurse/Tech; Complete Time: 20:10 02/27 19:44 Order name: IV Saline Lock - Large Bore; Complete Time: 20:10 02/27 19:44 Order name: Labs collected and sent; Complete Time: 20:10 02/27 19:44 Order name: O2 Per Protocol; Complete Time: 20:10 02/27 19:44 Order name: O2 Sat Monitoring; Complete Time: 20:10 02/27 19:44 Order name: Document PUI# 02/27 19:44 Order name: Droplet/Contact Precautions; Complete Time: 20:22 02/27 19:44 Order name: Labs collected and sent; Complete Time: 20:09 02/27 19:44 Order name: Notify Health Dept [phone]/ [facility] 02/27 19:44 Order name: O2 Per Protocol; Complete Time: 20:09 02/27 22:40 Order name: Respiratory Therapy Consult EDMS EC:56 Rate is 134 beats/min. Rhythm is regular with Occasional PVCs. QRS [place] is Normal. [place] tw4 interval is normal. QRS interval is normal. QT interval is normal. No Q waves. T waves are Inverted in lead aVL. ST Segment is depressed in leads II, III, aVF, <1mm. Clinical impression: NSR w/ Non-specific ST/T Changes, Cardiac ischemia, and Sinus tachycardia. Interpreted by me. Reviewed by me. Administered Medications: 20:11 Drug: NS 0.9% (30 ml/kg) 4300 ml Route: IV; Rate: bolus; Site: left antecubital; ls4 21:15 Drug: Rocephin - (cefTRIAXone) 1 grams Route: IVPB; Infused Over: 10 mins; Site: left ls4 antecubital; 21:22 Drug: Motrin 600 mg Route: PO; ls4 21:22 Drug: Tylenol 1000 mg Route: PO; ls4 21:25 Drug: LevaQUIN 500 mg Volume: 100 ml; Route: IVPB; Infused Over: 60 mins; Site: left ls4 antecubital; 22:11 Drug: Lopressor 5 mg Route: IVP; Site: left antecubital; ls4 22:13 Drug: Potassium Effervescent Tablet 50 mEq Route: PO; ls4 Disposition: 02/28/20 21:16 Hospitalization ordered by Isaias Cates for Inpatient Admission. Preliminary diagnosis are Sepsis, unspecified organism, Dehydration, Hypokalemia, Acute kidney failure, unspecified. - Bed requested for Telemetry/MedSurg (Inpatient). - Status is Inpatient Admission. ls4 - Condition is Stable. - Problem is new. - Symptoms are unchanged. Signatures: Dispatcher [employer] EDWI Wanda David RN RN Rell Norwood MD MD tw4 Cinthia Moss RN RN ls4 Corrections: (The following items were deleted from the chart) 22:46 21:16 Hospitalization Ordered by Isaias Cates MD for Inpatient Admission. Preliminary diagnosis is Sepsis, unspecified organism; Dehydration; Hypokalemia; Acute kidney failure, unspecified. Bed requested for Telemetry/MedSurg (Inpatient). Status is Inpatient Admission. Condition is Stable. Problem is new. Symptoms are unchanged. tw4 23:48 22:46 02/28/2020 21:16 Hospitalization Ordered by Isaias Cates MD for Inpatient ls4 Admission. Preliminary diagnosis is Sepsis, unspecified organism; Dehydration; Hypokalemia; Acute kidney failure, unspecified. Bed requested for Telemetry/MedSurg (Inpatient). Status is Inpatient Admission. Condition is Stable. Problem is new. Symptoms are unchanged. fc
[2020-02-28] MEDS ORDERED: IBUPROFEN 400 MG TAB ONE (21:30)
[2020-02-28] MEDS ORDERED: ACETAMINOPHEN 500 MG TAB ONE (21:30)
[2020-02-28] MEDS ORDERED: IBUPROFEN 200 MG TAB PO ONE (21:30)
[2020-02-28] MEDS ORDERED: Levofloxacin500mg IV 500 MG/100 ML BAG IV ONE (21:31)
[2020-02-28] MEDS ORDERED: POTASSIUM 25 MEQ EFFERV TAB ONE (21:31)
[2020-02-28] MEDS ORDERED: CEFTRIAXONE/SWI 1gm 1 GM/10 ML SYR ONE (21:31)
[2020-02-28] MEDS ORDERED: METOPROLOL TARTRATE 5 MG/5 ML INJ IV ONE (22:02)
[2020-02-29 00:48] VITALS: BMI 46.3
[2020-02-29] MEDS: ONDANSETRON 4 MG/2 ML VIAL IV PRN ×2 (01:57→09:03)
[2020-02-29 03:18] LABS: Urine Amorphous Sediment 3+ /HPF (NONE SEEN); Urine Bacteria >50 /HPF (NONE SEEN); Urine Culture Reflex Order REFLEXED; Urine Mucus 3+ /HPF (NONE SEEN)
[2020-02-29] MEDS ORDERED: PROMETHAZINE INJ 25 MG/ML AMP IV ONE (03:51)
[2020-02-29] MEDS ORDERED: ACETAMINOPHEN 325 MG TABLET PO PRN (04:36)
[2020-02-29] MEDS ORDERED: METOPROLOL TARTRATE 5 MG/5 ML INJ IV PRN (04:36)
[2020-02-29] MEDS ORDERED: PROMETHAZINE INJ 25 MG/ML AMP IV PRN (04:36)
[2020-02-29] MEDS ORDERED: Ringers Lactate 1,000 ML IV SCH (05:00)
[2020-02-29 06:09] LABS: Absolute Lymphocytes (CBC) 0.4 K/uL (0.7-4.9); Hematocrit 35.1 % (39.6-49.0); Lymphocytes % 1.9 % (15.3-44.8); MPV 7.8 fL (7.6-11.3); RBC Red Blood Cell Count 3.81 M/uL (4.33-5.43)
[2020-02-29 06:24] LABS: Albumin 2.1 g/dL (3.4-5.0); Bilirubin Total 0.4 mg/dL (0.2-1.0); Magnesium 1.6 mg/dL (1.8-2.4); Phosphorus 2.7 mg/dL (2.5-4.9); Protein, Total 5.8 g/dL (6.4-8.2)
[2020-02-29] MEDS ORDERED: metroNIDAZOLE 500 MG TABLET PO SCH ×2 (09:00→14:00)
[2020-02-29] MEDS ORDERED: NA CHLORIDE 0.9% 250 ML IV ONE ×2 (10:34→10:44)
[2020-02-29] MEDS: HYDROCORTISONE SUC 100 MG INJ IV SCH ×4 (10:51→23:58)
[2020-02-29] MEDS ORDERED: MAGNESIUM SULFATE 1 gm IVPB 1 GM/100 ML BAG IV ONE (10:54)
[2020-02-29] MEDS: HEPARIN 5000 UNIT/ML 1 ML VIAL SQ SCH ×2 (11:00→20:48)
[2020-02-29] MEDS: METRONIDAZOLE 500mg IVPB 500 MG/100 ML BAG IV SCH ×2 (11:00→16:40)
[2020-02-29] MEDS: FAMOTIDINE 20 MG/2 ML VIAL IV SCH ×2 (11:01→20:48)
[2020-02-29] MEDS: NA CHLORIDE 0.9% 1,000 ML IV SCH ×3 (11:13→23:59)
[2020-02-29] MEDS: KCL 20 MEQ/100 mL IVPB 20 MEQ/100 ML BAG IV SCH ×2 (11:15→15:00)
[2020-02-29] MEDS ORDERED: NA CHLORIDE 0.9% 500 ML IV ONE ×4 (11:26→18:15)
[2020-02-29] MEDS ORDERED: NA CHLORIDE 0.9% 1,000 ML ONE (11:31)
[2020-02-29 11:41] LABS: C.diff Antigen/Toxin Ag pos : Tox pos (NEG : NEG)
--- NOTE | 2020-02-29 11:54 | RAD REPORT ---
EXAM DESCRIPTION: CT - Abdomen Pelvis Wo Contrast - 02/29/2020 10:33 am CLINICAL HISTORY: Abdominal pain. abd distention, vomiting COMPARISON: Abdomen Pelvis W Contrast dated 12/26/2019 TECHNIQUE: CT imaging of the abdomen and pelvis was performed without contrast. Solid organ, bowel a nd vascular assessment is limited due to lack of IV and oral contrast. All CT scans are performed using dose optimization technique as appropriate and may include automated exposure control or mA/KV adjustment according to patient size. FINDINGS: The lower lung blanc are clear. Noncontrast liver assessment shows no biliary dilatation or aggressive hepatic lesion. Several low-de nsity splenic lesions are again seen, appearing unchanged since comparative study.The pancreas, adren al glands right kidney within normal limits. Exophytic left renal cyst is present. No left-sided hydr onephrosis. There is quite significant thickening of the colon seen greatest involving the cecum and ascending co massimo. Mild free fluid is seen around the hepatic and splenic edges. Edematous appearance to the centra l abdominal mesenteric fat also present. The appendix is normal. Mild adenopathy along the left stephen c chain and left para-aortic location appears unchanged since prior study. The osseous structures are within normal limits. IMPRESSION: Moderate to significant colitis pattern is seen. Mild free fluid in the upper abdomen is present. A limited non-contrast examination was performed as detailed.
[2020-02-29] MEDS: VANCOMYCIN ORAL SOLN 250 MG/5 ML OSYR PO SCH ×3 (12:37→23:58)
--- NOTE | 2020-02-29 17:32 | HP ---
Date of Admission: 02/29/2020 Chief Complaint: Abdominal pain, nausea, vomiting, diarrhea, and feeling weak. History Of Present Illness: This is a 69-year-old male patient who came into emergency room last night with complaints of some abdominal discomfort, more like achy feeling in abdomen, associated with nausea, vomiting, and multiple episodes of diarrhea. He is feeling very weak with all these complaints. Describes his diarrhea as loose watery stool several times a day, vomiting with lesser frequency. Has not had good appetite, not able to keep much food or liquids down, but appetite is also very poor. After he came into emergency room, he was evaluated and admitted to the hospital. Denies any blood in stool. Denies any hematemesis. Allergies: NO KNOWN ALLERGIES. Medications: List reviewed. Review of Systems: Constitutional: As mentioned above. GI: As mentioned above. All other systems reviewed and negative. Past Medical History: Significant for hypertension, mixed hyperlipidemia, prostate cancer, erectile dysfunction, lymphedema of legs, osteoarthritis, and recent hospital admission with left leg cellulitis and acute kidney injury. Cellulitis was due to MRSA. Past Surgical History: Partial thyroidectomy in 2014, due to goiter and was in form of removal of left thyroid lobe. Family History: Father , had coronary artery disease, hypertension, and abdominal aortic aneurysm. Mother , had Parkinson disease. Social History: Negative for smoking. Use of alcohol, occasional Physical Examination: Vital Signs: Initial temperature was 100.7 when he first came into emergency room, pulse was 134, respiratory rate 22, blood pressure 130/89, oxygen saturation 96-103. Pulse 138, respiratory rate 18, blood pressure 124/75, and last systolic blood pressure was 80. General: Patient appears very weak, and appears very pale. Not in any distress. HEENT: Head atraumatic, normocephalic. Conjunctivae nonerythematous. Sclerae white. Mouth, no thrush or edema noted. Ears/Nose, no mass, lesion, discharge noted. Neck: Supple. No JVD, lymph nodes, bruit, thyromegaly noted. Lungs: Bilateral good equal air entry. Clear to auscultation. No rhonchi. No rales. Heart: Normal heart sounds, no murmur or gallop. Abdomen: Soft, bowel sounds normal. No guarding, rigidity, tenderness, mass, hepatosplenomegaly, distention, or bruit noted. Extremities: Left leg exam shows very trace edema involving lower leg and left foot, but no open wound. Has some striae, which is building off from his foot and no open area. No evidence of cellulitis. Skin has slightly brownish discoloration and his entire left lower extremity looks significantly better than what it was compared to last hospital admission. Skin: No rash, ulcer, cellulitis. Lymphatics: No lymph node enlargement in neck, supraclavicular, infraclavicular region. Neuro: No focal neurological deficit. Chest: Unremarkable. External Genitalia: Deferred. Rectal: Deferred. Laboratory Data: Initial white count yesterday evening was 18.6, hemoglobin 11.8, platelets 283. This morning; white count 22.5, hemoglobin 11.9, platelets 257. INR 1.30. Blood gas; pH 7.56, pCO2 24.3, PO2 104, saturation 98.5%. Initial sodium 133, potassium 2.8, chloride 98, bicarb 25, BUN 24, creatinine 2.11, glucose 132. Lactic acid 2.3. Liver function tests unremarkable, procalcitonin 0.5. This morning, sodium 136, potassium 3, chloride 105, bicarb 22, BUN 2.22, glucose 122, magnesium 1.6. Urinalysis; 10-20 wbc's, bacteria more than 50. Stool C diff pending. COVID-19 test negative. Stool occult blood positive. Streptococcal screen and influenza A and B screen negative. Chest x- ray, no cardiopulmonary changes. Impression: 1. Probable Clostridium difficile colitis. 2. Acute kidney injury. 3. Volume depletion. 4. Chronic steroid therapy, rule out adrenal insufficiency. 5. Prostate cancer. 6. Hypertension. 7. Mixed hyperlipidemia. 8. Hypokalemia. 9. Hypomagnesemia. 10. Osteoarthritis, multiple sites. Plan: We will go ahead and admit him to hospital for further evaluation and management of this problem. Patient is appropriate for inpatient and is expected to spend 2 midnights in hospital. We will not give any of his usual home medications at this point. Give IV Pepcid 20 mg twice a day as he may have some stress-induced gastritis at this point. We will continue to monitor his hemoglobin. There was no evidence of any acute GI bleeding. Stool occult blood positive. This is likely due to his underlying colitis problem. At this point, we were concerned about Clostridium difficile colitis. Patient was in the hospital recently with left leg cellulitis problem and this was due to MRSA and he did receive IV vancomycin in the hospital and even at home, but he also had received other antibiotics including Levaquin and clindamycin as part of treatment for his extensive left leg cellulitis due to methicillin-resistant Staphylococcus aureus. He is also on chronic steroid therapy, prednisone 5 mg twice a day along with his chemotherapy for prostate cancer, and at this point, we need to keep in mind about possibility of secondary adrenal insufficiency problem. We will give him IV fluid boluses per order. I have given him 500 mL bolus soon after I saw him, and his systolic blood pressure was 80 after the bolus was completed, so we will give another 500 mL bolus and keep monitoring blood pressure and as it becomes necessary, we will continue to use IV fluid bolus. After giving adequate amount of fluid, we will consider whether he needs vasopressor medication or not and in that case, we may have to move him to ICU if that is necessary. IV steroid hydrocortisone 100 mg every 6 hours was ordered and he already received first dose after I saw him. Heparin 5000 unit every 12 hours was ordered for DVT prophylaxis. Fall precaution was ordered. We will replace electrolytes per protocol. Flagyl was ordered 500 mg IV every 8 hours and vancomycin 250 mg p.o. every 6 hours as needed. The patient may have underlying urinary tract infection on basis of urinalysis, but he does not have any definite symptoms of urinary tract infection. So at this point, we will not give any antibiotics for that purpose. He already has received multiple different IV antibiotic in emergency room last night and we will just follow up on his urine culture. Plan of treatment discussed with him. We will start him on clear liquid diet. DAVID/MODL Voice ID: [id number] CHANEL
[2020-02-29] MEDS ORDERED: POTASSIUM 25 MEQ EFFERV TAB PO ONE (21:00)
[2020-02-29 21:41] LABS: Potassium 4.1 mmol/L (3.5-5.1)
[2020-03-01] MEDS: METRONIDAZOLE 500mg IVPB 500 MG/100 ML BAG IV SCH ×3 (00:06→18:07)
[2020-03-01] MEDS ORDERED: Ringers Lactate 1,000 ML IV ONE (00:38)
[2020-03-01] MEDS: Ringers Lactate 1,000 ML IV SCH ×2 (03:20→09:26)
[2020-03-01 05:57] LABS: Absolute Lymphocytes (CBC) 0.9 K/uL (0.7-4.9); Hematocrit 43.3 % (39.6-49.0); Lymphocytes % 2.3 % (15.3-44.8); MPV 8.2 fL (7.6-11.3); RBC Red Blood Cell Count 4.69 M/uL (4.33-5.43)
[2020-03-01] MEDS ORDERED: Pharmacy Consult 1 EA XX PRN (06:16)
[2020-03-01 06:17] LABS: ALT/SGPT 16 U/L (12-78); AST/SGOT 15 U/L (15-37); Albumin 1.7 g/dL (3.4-5.0); Alkaline Phosphatase 104 U/L (45-117); BUN Blood Urea Nitrogen 30 mg/dL (7-18); Bicarbonate 15 mmol/L (21-32); Bilirubin Direct < 0.1 mg/dL (0-0.2); Bilirubin Total 0.2 mg/dL (0.2-1.0); Glucose Level 174 mg/dL (74-106); Magnesium 2.1 mg/dL (1.8-2.4); Potassium 4.2 mmol/L (3.5-5.1); Protein, Total 5.7 g/dL (6.4-8.2); Sodium Level 139 mmol/L (136-145)
[2020-03-01] MEDS: HYDROCORTISONE SUC 100 MG INJ IV SCH ×4 (06:25→23:44)
[2020-03-01] MEDS: ONDANSETRON 4 MG/2 ML VIAL IV PRN ×2 (06:26→18:11)
[2020-03-01] MEDS: WATER FOR INJ,STERILE 10 ML ONE ×2 (06:30→11:20)
[2020-03-01] MEDS ORDERED: NA CHLORIDE 0.9% 500 ML IV ONE ×4 (07:23→18:15)
[2020-03-01] MEDS ORDERED: NA CHLORIDE 0.9% 1,000 ML ONE (07:29)
--- NOTE | 2020-03-01 07:41 | EKG ---
Test Date: 2020-02-28 Test Time: 21:47:08 Players Assistant: STEVE MEASUREMENT RESULTS: Intervals: Rate: 140 AK: 140 QRSD: 80 QT: 272 QTc: 415 [place]: P: 6 AK: 140 QRS: -9 T: 94 INTERPRETIVE STATEMENTS: Sinus tachycardia Possible Left atrial enlargement ST & T wave abnormality, consider lateral ischemia Abnormal ECG Compared to ECG 01/26/2020 07:31:07 ST (T wave) deviation now present Possible ischemia now present Electronically Signed On 03-01-20 07:39:07 CDT by Chidi Arredondo
--- NOTE | 2020-03-01 07:41 | EKG ---
Test Date: 2020-02-28 Test Time: 19:28:06 Erp Project Manager: STEVE MEASUREMENT RESULTS: Intervals: Rate: 134 ID: [id number] QRSD: 78 QT: 276 QTc: 412 [place]: P: 61 ID: [id number] QRS: -19 T: 76 INTERPRETIVE STATEMENTS: Sinus tachycardia with occasional premature ventricular complexes ST & T wave abnormality, consider lateral ischemia Abnormal ECG Compared to ECG 01/26/2020 07:31:07 Ventricular premature complex(es) now present ST (T wave) deviation now present Possible ischemia now present Electronically Signed On 03-01-20 07:39:16 CDT by Chidi Arredondo
[2020-03-01] MEDS ORDERED: NS 0.9% VIAL 20 ML ONE (07:58)
--- NOTE | 2020-03-01 08:55 | RAD REPORT ---
EXAM DESCRIPTION: RAD - Abdomen 1 View (KUB) - 03/01/2020 8:18 am CLINICAL HISTORY: abdominal distention COMPARISON: Abdomen Pelvis Wo Contrast dated 02/29/2020 FINDINGS: Exam is considered very limited due to the very large body habitus, respiratory motion and portable technique utilized. No free air or pneumatosis identifiable. Prominent bowel loops in the left mid abdomen are present ap pearing new from comparison. These are suspected to be small bowel loops that are dilating. Right-ariel ed colitis changes are evident. This matches the CT. No suspicious calcifications. IMPRESSION: Very limited portable KUB imaging shows new distended and dilated bowel loops in the lef t mid abdomen. The prominent left mid abdomen bowel loops are a change from prior study. Developing small bowel dila tation is suspected.
[2020-03-01] MEDS ORDERED: Rifaximin 550 MG Tab PO SCH (09:00)
[2020-03-01 09:08] LABS: Toxic Granulation 1+
[2020-03-01 09:09] LABS: Anisocytosis 1+; Blood Morphology Comment NOTED (NOT SEEN); Burr Cells 1+; Platelet Estimate ADEQ
[2020-03-01] MEDS: VANCOMYCIN ORAL SOLN 250 MG/5 ML OSYR PO SCH ×4 (09:25→20:35)
[2020-03-01] MEDS: FAMOTIDINE 20 MG/2 ML VIAL IV SCH ×2 (09:25→20:35)
--- NOTE | 2020-03-01 09:46 | RAD REPORT ---
EXAM DESCRIPTION: RAD - Chest Single View - 03/01/2020 9:20 am CLINICAL HISTORY: central line placement COMPARISON: February 27 TECHNIQUE: AP portable chest image was obtained 03/01/2020 9:20 am . FINDINGS: Right jugular central line has been placed. Catheter tip is in the mid to distal SVC. Low lung volumes present. No pneumothorax. No new or progressive lung parenchymal finding. Heart and vasculature are normal. IMPRESSION: Right jugular central line placement in good position. No pneumothorax.
[2020-03-01] MEDS: METOPROLOL TAR 25 MG TAB PO SCH ×2 (11:21→20:00)
[2020-03-01] MEDS ORDERED: WATER FOR INJ,STERILE 10 ML ONE ×2 (11:23→18:04)
[2020-03-01] MEDS: HEPARIN 5000 UNIT/ML 1 ML VIAL SQ SCH ×2 (11:24→20:35)
[2020-03-01] MEDS: VANCOMYCIN RC SCH ×3 (11:28→23:43)
[2020-03-01] MEDS: NA CHLORIDE 0.9% RC SCH ×3 (11:28→23:43)
[2020-03-01] MEDS ORDERED: VANCOMYCIN 500 MG in NA CHLORIDE 0.9% 100 ML RC SCH (12:00)
[2020-03-01] MEDS: NA CHLORIDE 0.9% 1,000 ML IV SCH ×2 (12:00→19:23)
--- NOTE | 2020-03-01 12:06 | PN ---
Date of Progress Note: 03/01/2020 Subjective: Patient was seen this morning for followup. He was moved to ICU early this morning. Ye sterday, we gave him multiple IV fluid boluses. During junk removal specialist hours, he was sent to ICU [facility] blood pressure was running on low side. He continues to remain tachycardic with heart rate 120 to 130, sinus tachycardia and ICU nurse reported 4 beats run of V-tach early this morning and short run of paroxysmal atrial fibrillation. Prior to my arrival in ICU, we did place a Duffy catheter and he has approximately 100 to 120 mL of urine output since the catheter was placed and his core temperatu re is 99.1 degrees Fahrenheit, so warming blankets that he had earlier after his arrival to ICU [facility] temperature was 96.2. Now, the warming blanket was discontinued. When I saw him in ICU, he actua lly appeared better than yesterday. He appeared very pale this morning. He still appears pale, but his skin color is better than yesterday. He is not in any distress. His abdomen appears distended c ompared to yesterday and denies any abdominal pain, but has some vague discomfort in abdomen as he de scribed, which has remained unchanged since yesterday. He had 2 small bowel movement early this morn ing. No vomiting, but has some intermittent nausea, but not when I saw him. Prior to my arrival, we also requested Dr. Salcedo to place a central line which was placed in the right IJ area. Physical Examination: HEENT: Unremarkable. Lungs: Clear to auscultation. Heart: Sounds normal. Abdomen: Distended. Bowel sounds hypoactive. No guarding, rigidity. Minimum awake, mild tendernes s present, but no evidence of rebound tenderness. Extremities: No leg edema. Laboratory Data: White count has gone up to 40.6, hemoglobin 14.3, platelets 398. Sodium 139, potas sium 4.2, chloride 110, bicarb 15, BUN 30, creatinine 3.63, glucose 174, lactic acid 3.2. Magnesium level 2.1. Impression: 1.Clostridium difficile colitis. 2.Ileus secondary to above. 3.Acute kidney failure. 4.Metabolic acidosis. Plan: We will go ahead and continue DVT prophylaxis using heparin per order. Continue IV Flagyl, or al vancomycin, and vancomycin. Rectal enema was ordered, which will be started this morning. Contin ue aggressive IV fluid resuscitation. Patient does not need any vasopressor medication at this time, but we will consider that if it becomes necessary. When I saw him in ICU, his systolic blood pressu re was anywhere between 130 to 150 range. We will continue to monitor his blood pressure along with pulse rate. If blood pressure continues to remain stable like this and he continues to remain tachyc ardic, then we will go ahead and start him on metoprolol. His stool C diff test results came back po sitive yesterday. Patient does not have any family member and he has a friend by the name Maryrolando Millicent hernandez listed as next of kin and with patient's permission, I did call him and discuss all the details w ith him. DAVID/MODL Voice ID: [id number] Report ID: [id number]
--- NOTE | 2020-03-01 12:51 | CON ---
Date of Consultation: 03/01/2020 Reason For Consultation: C diff colitis and patient needs a central line. History Of Present Illness: Patient is a 69-year-old gentleman, who has been having diarrhea for the about 5 or 6 days and felt weak, nausea, vomiting, and increasing diarrhea and therefore he came to the emergency room and was admitted and was consulted. Patient had a cellulitis and lymphedema of [facility] lower extremity, was being treated for vancomycin about a month ago. I had seen him for that in [facility]. He had been discharged with a PICC line on IV antibiotics and his cellulitis has improve d and PICC line was removed last week. He is awake, alert, really not much abdominal pain at this ti wa. He had some nausea but he has not vomited. He is still having some watery diarrhea and he had a C diff test which was positive and COVID was negative. He has no sore throat, runny nose, cough, he adaches, or dizziness. No chest pain and low-grade fevers. He was on the floor. He had tachycardia and hypotension and he was transferred to the floor. He only had 1 IV access and I was asked to als o put in a central line for IV access purposes. Review of Systems: Otherwise unremarkable. Past Medical History: Significant for hypertension, morbid obesity, hyperlipidemia, prostate cancer, lymphedema, recent admission for cellulitis due to MRSA. Past Surgical History: Thyroidectomy. Allergies: NO ALLERGIES. Social History: He does not smoke. Drinks alcohol occasionally. Family History: Noncontributory. Physical Examination: Vital Signs: Currently, he is afebrile, he was actually hypothermic earlier prior to being transferr ed. Currently, his heart rate is 134, respiratory rate is 17, and his blood pressure is 84/57. He i s getting a fluid bolus. His urine output is marginal, 150 cc over the last 12 hours. General: He is awake, alert, and oriented x3. Head and Neck: Cranial nerves 2 through 12 grossly within normal limits. No neck masses. No JVD. Throat clear. Neck is supple. Chest: Clear. Heart: S1 and S2. Abdomen: Soft, slightly distended. Minimal right-sided tenderness. No rebound, rigidity, or guardi ng. Hypoactive bowel sounds. Extremities: Adequately perfused. Nontender. Neuro: Nonfocal. Laboratory Data: White count on admission yesterday evening was 18.6, this morning was 22.5 at 5 a.m ., the repeat was 40.6. There is a left shift. H and H were 11.8 and 35 on admission, currently 14. 3 and 43.3. INR is 1.30. Blood gas reviewed. Chemistry shows lactic acid of 3.2, BUN is 30, creati nine is 3.63. Lactic acid was 2.3 on admission. Procalcitonin was 0.5. CT of the abdomen and pelvi s reviewed, moderate to significant colitis that is seen, mild free fluid in the upper abdomen is pre sent. This area is cecum and ascending colon mostly, and the free fluid is in the hepatic and spleni c edges. There is edematous appearance of the central abdominal mesenteric fat. Stool culture most of is pending, but I was told he is positive for C diff. Assessment: Acute sigmoid diverticulitis and patient with sepsis, dehydration. Recommendations: Continue antibiotics. Patient is currently on oral Flagyl and vancomycin. He is a lso getting steroids, may be the reason why his white count jumped up so quickly as well as sepsis. We will go ahead and put a central line in the patient. He needs more fluids. We will give him 500 cc of saline bolus. The risks, benefits, and alternatives of the central line were explained to the patient, he agreed. Procedure Note: Under sterile condition, lidocaine 1% was infiltrated in the right IJ region. 18-ga uge needle was used to access the right IJ vein. Guidewire was passed. Vein dilated. Seldinger dylan hnique was used. Tip of the catheter was placed into the SVC approximately 17 cm from the skin edge and then flushed with heparin and packed with heparin with good blood flow. Secured with 3-0 silk. Sterile dressing was applied. Patient tolerated the procedure in stable condition and chest x-ray has been o rdered. /MODL Voice ID: [id number] Report ID: [id number]
[2020-03-01 14:06] LABS: Absolute Lymphocytes (CBC) 1.1 K/uL (0.7-4.9); Basophils % 0.1 % (0-1.3); Hematocrit 41.6 % (39.6-49.0); Lymphocytes % 2.4 % (15.3-44.8); MPV 8.2 fL (7.6-11.3); RBC Red Blood Cell Count 4.48 M/uL (4.33-5.43)
[2020-03-01 14:16] LABS: Albumin 1.6 g/dL (3.4-5.0); Bilirubin Total 0.2 mg/dL (0.2-1.0); Magnesium 2.1 mg/dL (1.8-2.4); Phosphorus 4.4 mg/dL (2.5-4.9); Potassium 4.1 mmol/L (3.5-5.1); Protein, Total 5.2 g/dL (6.4-8.2)
[2020-03-01] MEDS ORDERED: LORazepam 2 MG/ML VIAL IV PRN (21:32)
[2020-03-01] MEDS: DIGOXIN 0.25 MG/ML AMP IV SCH (21:51)
[2020-03-01] MEDS ORDERED: NA CHLORIDE 0.9% 250 ML IV ONE (22:01)
[2020-03-02] MEDS: METRONIDAZOLE 500mg IVPB 500 MG/100 ML BAG IV SCH ×3 (00:48→16:59)
[2020-03-02] MEDS ORDERED: NA CHLORIDE 0.9% 250 ML IV ONE ×2 (02:47→04:22)
[2020-03-02] MEDS: VANCOMYCIN ORAL SOLN 250 MG/5 ML OSYR PO SCH ×4 (02:56→20:03)
[2020-03-02] MEDS: DIGOXIN 0.25 MG/ML AMP IV SCH (02:56)
[2020-03-02] MEDS: METOPROLOL TAR 25 MG TAB PO SCH ×3 (04:00→20:00)
[2020-03-02] MEDS: NA CHLORIDE 0.9% 1,000 ML IV SCH (04:00)
[2020-03-02 04:55] LABS: Arterial Blood Carboxyhemoglob 0.6 % (0-1.5); Blood Gas Oxyhemoglobin 93.8 % (94-97); Blood O2 Saturation 95.2 % (92-98.5)
[2020-03-02] MEDS ORDERED: D5W 1,000 ML IV ONE (04:59)
[2020-03-02] MEDS ORDERED: D5W 1,000 ML with NA BICARB 8.4% 100 MEQ IV SCH ×2 (05:00)
[2020-03-02 05:31] LABS: Basophils % 0.2 % (0-1.3); Hematocrit 41.3 % (39.6-49.0); MPV 9.1 fL (7.6-11.3); RBC Red Blood Cell Count 4.39 M/uL (4.33-5.43)
[2020-03-02 05:37] LABS: Magnesium 2.1 mg/dL (1.8-2.4); Potassium 4.3 mmol/L (3.5-5.1)
[2020-03-02] MEDS ORDERED: WATER FOR INJ,STERILE 10 ML ONE ×3 (05:40→22:55)
[2020-03-02] MEDS: NA CHLORIDE 0.9% RC SCH ×4 (05:53→23:19)
[2020-03-02] MEDS: VANCOMYCIN RC SCH ×4 (05:53→23:19)
[2020-03-02] MEDS: HYDROCORTISONE SUC 100 MG INJ IV SCH ×4 (05:56→23:14)
[2020-03-02] MEDS ORDERED: NOREPINEPHRINE 4mg/D5W 250mL 4 MG/250 ML BAG IV ONE (06:19)
[2020-03-02] MEDS: NOREPINEPHRINE 4 MG in D5W 250 ML IV PRN ×3 (06:25→14:19)
--- NOTE | 2020-03-02 07:48 | RAD REPORT ---
EXAM DESCRIPTION: RAD - Chest Single View - 03/02/2020 6:59 am CLINICAL HISTORY: dyspnea COMPARISON: March 01 TECHNIQUE: AP portable chest image was obtained 03/02/2020 6:59 am . FINDINGS: Lung volumes are low. Shallow inspiration, large body habitus and portable technique limit the examination. No focal mass or consolidation seen. Medial left base opacification is probably ate lectasis. Left costophrenic angle blunting is probably body habitus and portable technique affects ra ther than any significant pleural effusion. Heart size normal range for shallow inspiration portable imaging. No abnormal vascular engorgement. No pneumothorax. Right jugular central line is in place. Tip is obscured by motion. Tubing overlies the midline chest. This is poorly visualized due to exam limitations. It is uncertain if this is an ET tube or NG tube. IMPRESSION: Shallow inspiration film showing medial left lung base opacification favored to be atele ctasis. No significant failure or volume overload findings. Right jugular line remains in place. Tubing in the midline chest is believed to be an NG tube but is poorly visualized by exam limitations.
--- NOTE | 2020-03-02 07:51 | RAD REPORT ---
EXAM DESCRIPTION: RAD - Abdomen Single View - 03/02/2020 6:58 am CLINICAL HISTORY: c diff colitis COMPARISON: Abdomen Pelvis Wo Contrast dated 02/29/2020 FINDINGS: Exam is extremely limited by large body habitus, portable technique and motion. No free air or pneumatosis identified. Prominent loops of bowel are present believed to be colon. No convincing evidence for small bowel dilatation. Duffy catheter is in place. No suspicious calcificati ons. No significant bony findings IMPRESSION: Prominent colon loops without small bowel dilatation seen. No free air or pneumatosis identifiable. Exam should be viewed as extremely limited.
[2020-03-02] MEDS: FAMOTIDINE 20 MG/2 ML VIAL IV SCH (08:30)
[2020-03-02] MEDS: HEPARIN 5000 UNIT/ML 1 ML VIAL SQ SCH ×2 (08:31→20:02)
[2020-03-02 08:33] LABS: Anisocytosis 1+; Blood Morphology Comment NOTED (NOT SEEN); Platelet Estimate ADEQ; Poikilocytosis 1+; Toxic Granulation 2+
[2020-03-02] MEDS ORDERED: D5 0.45 NS 1,000 ML IV SCH (09:00)
[2020-03-02] MEDS ORDERED: FAMOTIDINE 20 MG/2 ML VIAL IV SCH (09:00)
--- NOTE | 2020-03-02 11:40 | PN ---
Date of Progress Note: 03/02/2020 Subjective: Patient is awake, alert. Feels better than the last night; however, he is complaining o f some abdominal discomfort. Objective: Vital Signs: Significant for tachycardia and hypotension. He is afebrile. Respiratory rate is between 20 and 30. Abdomen: Distended, soft. There is very minimal tenderness. There is no rebound, rigidity, or guardin g. Extremities: His NG tube has put out 700 cc since yesterday evening Laboratory Data: Reviewed. It shows white count of 65.6 with a left shift. His chemistry shows lac tic acid, which was up to 5.8, at 4:51 this morning, is down to 4.9 at 8:10 this morning. His BUN an d creatinine are up from yesterday to 43 and 4.64 and his CO2 is 15. Procalcitonin is 7.98, which is down from 8.47. Assessment: Clostridium difficile colitis, sepsis. Recommendation: Resuscitation ongoing with antibiotics. Blood pressure, fluid boluses. Nephrology has been consulted. We will await their recommendation. The patient is in critical condition; howev er, the numbers do look worse than the clinical picture of the patient. We will follow this patient closely. /MODL Voice ID: [id number] Report ID: [id number]
--- NOTE | 2020-03-02 12:24 | P.CNS ---
Date of Consult: 03/02/20 Reason for Consult: Shock Chief Complaint: Nausea vomiting History of Present Illness: Patient is 69 years of age admitted with nausea vomiting C difficile diarrhea currently in shock is on vasopressors patient has acute on chronic renal failure white count is significantly elevated has some abdominal discomfort currently on vasopressors denies any pulmonary complain Allergies No Known Allergies Allergy (Verified 02/29/20 00:50) Home Medications: Abiraterone Acetate [Zytiga] 1,000 mg PO DAILY 01/22/20 Amlodipine Besylate 5 mg PO BID 01/22/20 Ascorbate Calcium [Vitamin C] 1 tab PO DAILY 01/22/20 Aspirin [Aspirin EC 81 MG] 1 tab PO BEDTIME 01/22/20 Clonidine HCl [Catapres] 0.3 mg PO TID 01/22/20 Hydralazine [Apresoline*] 50 mg PO BID 01/22/20 Lisinopril [Zestril] 1 tab PO DAILY 01/22/20 Metoprolol Tartrate 100 mg PO BID 01/22/20 Montelukast Sodium 10 mg PO PRN 01/22/20 Tamsulosin HCl 1 tab PO DAILY 01/22/20 Ubidecarenone [Co Q10] 200 mg PO DAILY 01/22/20 hydroCHLOROthiazide [Hydrochlorothiazide] 12.5 mg PO DAILY 01/22/20 predniSONE [Prednisone*] 5 mg PO BID 01/22/20 Cholecalciferol (Vitamin D3) [Vitamin D3] 1,000 unit PO DAILY 02/29/20 Cholecalciferol (Vitamin D3) [Vitamin D3] 5,000 unit PO DAILY 02/29/20 Ferrous Sulfate [Ferrous Sulfate*] 1 tab PO DAILY 02/29/20 - Past Medical/Surgical History Diabetic: No -: Hypertension -: Prostate CA, Radiation 45 days last Oct -: thyroidectomy - Family History Father Medical History: Heart disease Mother Medical History: Other (see notes) Notes: parkinson Brother Medical History: Other (see notes) Notes: sepsis - Social History Alcohol use: No CD- Drugs: No Caffeine use: Yes Place of Residence: Home Review of Systems General: Weakness Respiratory: Shortness of Breath Gastrointestinal: Abdominal Pain, Diarrhea Physical Examination Temp Pulse Resp BP Pulse Ox 98.1 F 133 H 27 H 94/44 L 96 03/02/20 08:00 03/02/20 11:15 03/02/20 11:15 03/02/20 11:15 03/02/20 11:00 General: Alert, In no apparent distress, Oriented x3 HEENT: Atraumatic Neck: Supple Respiratory: Clear to auscultation bilaterally Cardiovascular: No edema, Edema Gastrointestinal: Normal bowel sounds, Masses (Very mild tenderness) - Problems (1) Septic shock due to Clostridioides difficile Current Visit: Yes Status: Acute Plan: Patient is 69 years of age admitted with septic shock CT scan shows colitis C difficile positive with vancomycin Flagyl seen by Nephrology in you with vasopressors patient has metabolic acidosis and hyporcapnic is been significant worsening of his renal function and increasing white count so far is oxygenation is satisfactory is very alert oriented responsive cooperate
[2020-03-02 12:32] LABS: Potassium 4.2 mmol/L (3.5-5.1)
[2020-03-02] MEDS ORDERED: NA CHLORIDE 0.9% 1,000 ML IV ONE (12:51)
[2020-03-02] MEDS ORDERED: D5W 1,000 ML with NA BICARB 8.4% 150 MEQ IV SCH ×2 (13:00)
--- NOTE | 2020-03-02 13:14 | RAD REPORT ---
EXAM DESCRIPTION: US - Renal Ultrasound-Complete - 03/02/2020 1:04 pm CLINICAL HISTORY: Acute renal insufficiency COMPARISON: February 29, 2020 cat scan 11 FINDINGS: The right kidney measures 11 cm with an increased echotexture. The left kidney measures 11 cm with an increased echotexture. Left renal cyst seen on the CT scan is not clearly visualized on the current exam. Hydronephrosis is not seen. No gross abnormality of bladder is seen IMPRESSION: Increased renal echotexture consistent with parenchymal disease No hydronephrosis
[2020-03-02] MEDS: NOREPINEPHRINE 8 MG in Dextrose 5%-Water 500 ML IV PRN ×2 (16:59→22:31)
[2020-03-02] MEDS ORDERED: ETOMIDATE 20 MG/10 ML VIAL IV ONE (20:43)
[2020-03-02] MEDS ORDERED: RSI MEDICATION KIT IV ONE (20:43)
[2020-03-02] MEDS ORDERED: EPINEPHRINE/PF 1 MG/ML AMP ONE ×2 (20:51→21:23)
--- NOTE | 2020-03-02 21:09 | RAD REPORT ---
EXAM DESCRIPTION: Rosa M Single View03/02/2020 8:55 pm CLINICAL HISTORY: Device placement endotracheal tube placement IMPRESSION: An endotracheal tube has been inserted with its tip 4 centimeters above the zenaida. A nasogastric tube has been placed into the stomach
[2020-03-02 21:13] LABS: Absolute Lymphocytes (CBC) 6.1 K/uL (0.7-4.9); Basophils % 0.4 % (0-1.3); Hematocrit 42.4 % (39.6-49.0); RBC Red Blood Cell Count 4.27 M/uL (4.33-5.43)
[2020-03-02] MEDS ORDERED: SODIUM BICARB 50 MEQ/50ML VIAL ONE (21:19)
[2020-03-02 21:33] LABS: Albumin 1.1 g/dL (3.4-5.0); Bilirubin Total 0.2 mg/dL (0.2-1.0); Magnesium 2.5 mg/dL (1.8-2.4); Potassium 4.7 mmol/L (3.5-5.1); Protein, Total 3.8 g/dL (6.4-8.2)
[2020-03-02] MEDS ORDERED: Phenylephrine HCl 10 MG/ML 1 ML VIAL ONE (21:54)
[2020-03-02] MEDS ORDERED: NA CHLORIDE 0.9% 500 ML ONE (21:56)
[2020-03-02 22:00] LABS: Blood Gas Oxyhemoglobin 88.9 % (94-97); Blood O2 Saturation 89.7 % (92-98.5)
[2020-03-02] MEDS ORDERED: NA CHLORIDE 0.9% 500 ML IV ONE (22:01)
[2020-03-02] MEDS: D5W 1,000 ML with NA BICARB 8.4% 150 MEQ IV SCH ×2 (22:03)
[2020-03-02] MEDS: FENTANYL CITR 100 MCG/2 ML IV PRN (22:07)
[2020-03-02] MEDS ORDERED: FENTANYL CITR 100 MCG/2 ML ONE (22:07)
[2020-03-02] MEDS ORDERED: EPINEPHrine 4 MG in NA CHLORIDE 0.9% 250 ML IV PRN (22:13)
[2020-03-02 22:28] LABS: Blood Morphology Comment NOTED (NOT SEEN); Burr Cells 3+; Platelet Estimate ADEQ; Polychromasia 2+; Toxic Granulation 2+
[2020-03-02] MEDS: LORazepam 2 MG/ML VIAL IV PRN (22:54)
[2020-03-02] MEDS: HALOPERIDOL LACT 5 MG/ML INJ IV PRN (22:54)
[2020-03-02] MEDS ORDERED: Meropenem 500 MG in NA CHLORIDE 0.9% 100 ML IV SCH (23:00)
[2020-03-02] MEDS ORDERED: Meropenem 500 MG VIAL IV SCH (23:00)
[2020-03-02 23:43] LABS: Blood O2 Saturation 94.1 % (92-98.5)
[2020-03-03] MEDS: METRONIDAZOLE 500mg IVPB 500 MG/100 ML BAG IV SCH ×3 (00:04→16:16)
[2020-03-03] MEDS: D5W 1,000 ML with NA BICARB 8.4% 150 MEQ IV SCH ×6 (00:05→16:14)
[2020-03-03] MEDS: FENTANYL CITR 100 MCG/2 ML IV PRN ×6 (00:20→22:31)
[2020-03-03 00:27] LABS: Bilirubin Total 0.3 mg/dL (0.2-1.0); Potassium 4.3 mmol/L (3.5-5.1); Protein, Total 3.4 g/dL (6.4-8.2)
--- NOTE | 2020-03-03 00:27 | PN ---
Date of Progress Note: 03/02/2020 Subjective: Patient was seen this morning for followup. He was lying in bed in ICU on oxygen. Abdo men was the way he described was feeling uncomfortable, but unchanged from yesterday. Some loose to liquid bowel movement during nighttime. Objective: Vital signs: Reviewed. Intake output records reviewed. HEENT: Unremarkable. Lungs: Clear to auscultation. Not in respiratory distress. Cardiac: Heart sounds normal. Abdomen: Distended. Bowel sounds hypoactive. Extremities: No leg edema Skin: Appears pale. Laboratory Data: This morning, white count was 65.6, hemoglobin 13.3, platelets 279. Blood gas, pH 7.35, pCO2 21.7, PO2 81.5, saturation 95% on 36% FiO2 and his chemistry this morning sodium 143, pota ssium 4.3, chloride 112, bicarb 15, BUN 43, creatinine 4.64, glucose 163. Repeat chemistry later thi s morning, sodium 142, potassium 4.2, chloride 110, bicarb 16, BUN 44, creatinine 4.88, glucose 170. Lactic acid level this morning was 5.8. Last chemistry this evening around 4:30 p.m., BUN 46, creat inine 5, bicarb 16, sodium 141, potassium 4. His procalcitonin this morning was 7.98. Renal ultrasound done today was negative for any acute changes, increase renal echotexture consistent with parenchymal disease. No hydronephrosis. Chest x-ray shows shallow inspiration film showing me dial left lung base opacification likely due to atelectasis. No significant failure or volume overlo ad finding and abdominal x-ray shows prominent colon loops with small bowel dilatation. No free air. Impression: 1.Septic shock. 2.Acute kidney failure. 3.Clostridium difficile colitis. 4.Metabolic acidosis. 5.Acute respiratory failure. Plan: Throughout the course of day today, the patient received IV fluid, bicarb, antibiotics. Nephr ology and Pulmonary consultation were obtained. Details were discussed with the culinary assistant as well as refrigerated cargo clerk. Patient had very small amount of urine output today throughout the day today. In take and output were monitored carefully and IV fluid boluses were given along with maintenance IV fl uid. After talking to culinary assistant, we started to plan for need for dialysis and considering his sig nificant hypotension problem requiring vasopressor medication, which was started this morning and all throughout the day, we still continued to have problem with hypotension requiring titration of vasop ressor medication. Decision was made to go ahead and initiate the transfer process to [place] where our culinary assistant can assist us with dialysis needs and I did talk to [facility] hospitalist this afternoon. Patient was accepted, but they did not have any ICU bed available, so hopefully bed might be available tomorrow as I understand. Meanwhile, just a while ago, nurse yohana keller ICU notified me that all of a sudden the patient became bradycardic and hypotensive. His blood pre ssure dropped down to systolic anywhere between 30-50 systolic and pulse rate went down to 50 and thi s happened suddenly. Code was called and the patient was intubated. After intubation, his blood pre ssure came up to around 110 systolic, heart rate is around 110 and his color looks better, as per my discussion with ICU nursing staff. He remains on vasopressor medication IV fluid and we will go ahea d and continue ventilator support and critical care management per Dr. Servin and nurse was advised to contact Dr. Servin to let him know about this change in condition. I have called the patient's friend, Mr. Suzette Parson 3 different times today to notify him with updates including just few luana pool ago notified him of the patient's going on life support. Overall, prognosis remains poor. I raphael l see him tomorrow morning. DAVID/MODL Voice ID: [id number] Report ID: [id number]
[2020-03-03] MEDS ORDERED: ALBUMIN HUMAN 25% 200 ML IV ONE (01:05)
--- NOTE | 2020-03-03 01:32 | CON ---
Date of Consultation: 03/02/2020 Chief Complaint: Acute kidney injury, severe, borderline oliguric. History Of Present Illness: Patient is in ICU. He has history of severe Clostridium difficile colit is and diarrhea. He was evaluated by Surgical team and Pulmonary team. Urine output has been declin ing over last 24 hours and nephrology consultation was requested today. Patient is in septic shock. He has been treated with multiple IV boluses normal saline and received IV bicarbonate replacement f or metabolic acidosis. He was found to have lactic acidosis. Leukocyte count was accelerating over last 24 hours from 40,000 up to 65,800, hemoglobin level remains within a stable range. Today, hemog lobin is up to 13.5 on March 01 was 14.3. Patient is receiving very aggressive IV fluids resuscitati on and urine output has not improved significantly over last 12 hours urine output is 1800. Over las t 12 hours urine output was 150 mL and in addition to that is there was 120 mL. Patient received IV fluids and he has positive balance. CT scan of the abdomen was done and showed colitis. The renal u ltrasound did not show hydronephrosis. ABG was done this morning and pH was within normal limits. Didier bianchi is a 69-year-old man admitted with nausea, vomiting, and was found to have C diff diarrhea. C urrently, he remains on multiple pressors and he was intubated after he became unresponsive and was f ound to have bradycardia. He is on multiple vasopressors and he is receiving IV normal saline and an additional dose with sodium bicarbonate because ABG showed drop of pH. Patient has multiple medical problems including hypertension, BPH, history of prostate cancer status post radiation and he comple gabriel radiation 45 days ago on October 30, 2019. He had thyroidectomy. Family History: Father had a heart disease. Mother, Parkinson disease. Brother, diabetes. Past Surgical History: None. Social History: Negative for tobacco, alcohol, or illicit drugs. Physical Examination: General: Patient is intubated, on multiple pressors. Lungs: Breath sound present bilaterally. Heart: S1, S2. Abdomen: Distended. Extremities: Slight edema in both ankles. Neurologic: Patient is intubated cannot be evaluated. There is no seizure. No tremor. Laboratory Data: This morning lab work shows sodium 142, potassium 4.2, chloride 110, CO2 16, BUN 44 , creatinine 4.88, glucose 170, calcium 7.8. Lactic acid was 4.9. ABG was, pH 7.35, pCO2 21.7, and PO2 81.5, SpO2 98.2. Renal ultrasound showed right kidney 11 cm in length with increased echotexture , left kidney 11 cm with increased echotexture. Left renal cyst seen on CT scan, not clearly visuali zed. No hydronephrosis. Impression And Plan: Patient is critically ill and septic shock with a Clostridium difficile colitis . He was consulted by k [employer] police officer, Critical Care and Surgical team. Nephrology consultation was r equested for acute kidney injury and transferred to higher level of care was initiated this afternoon and so CVVHD. Currently, the patient is after intubation and he remains on multiple pressors. Berkley ent has Clostridium diff positive test and Coronavirus disease was negative. He was seen by Surgical Team for severe colitis with Clostridium difficile colitis. He is on multiple antibiotics of broad spectrum. Septic shock and is receiving fluid resuscitation. Patient currently is on Flagyl and p.o . vancomycin for severe Clostridium difficile colitis. Patient will continue bicarbonate drip for me tabolic acidosis. He may need to start CVVHD. Patient remains critically ill. Currently, he is not stable for conventional hemodialysis. Plan is to continue IV fluids and bicarbonate drip. Case raphael l be discussed with Critical Care. EB/MODL Voice ID: [id number] Report ID: [id number]
[2020-03-03] MEDS: NOREPINEPHRINE 8 MG in Dextrose 5%-Water 500 ML IV PRN ×4 (02:47→16:13)
[2020-03-03] MEDS: LORazepam 2 MG/ML VIAL IV PRN ×4 (02:56→14:04)
[2020-03-03] MEDS ORDERED: ALBUMIN HUMAN 25% 100 ML IV ONE (03:30)
[2020-03-03] MEDS: METOPROLOL TAR 25 MG TAB PO SCH ×2 (04:00→12:00)
[2020-03-03] MEDS: VANCOMYCIN ORAL SOLN 250 MG/5 ML OSYR PO SCH ×4 (04:07→21:47)
[2020-03-03] MEDS: HALOPERIDOL LACT 5 MG/ML INJ IV PRN (05:00)
[2020-03-03] MEDS ORDERED: NS 0.9% VIAL 30 ML ONE (05:02)
[2020-03-03 05:12] LABS: Absolute Lymphocytes (CBC) 4.8 K/uL (0.7-4.9); Basophils % 0.5 % (0-1.3); Hematocrit 34.8 % (39.6-49.0); Lymphocytes % 6.1 % (15.3-44.8); MPV 8.5 fL (7.6-11.3); RBC Red Blood Cell Count 3.64 M/uL (4.33-5.43)
[2020-03-03 05:36] LABS: Protime INR 5.23
[2020-03-03] MEDS: NA CHLORIDE 0.9% RC SCH ×3 (06:00→17:14)
[2020-03-03] MEDS: VANCOMYCIN RC SCH ×3 (06:00→17:14)
[2020-03-03 06:01] LABS: Albumin 2.1 g/dL (3.4-5.0); Bilirubin Total 0.6 mg/dL (0.2-1.0); Magnesium 2.1 mg/dL (1.8-2.4); Phosphorus 7.8 mg/dL (2.5-4.9); Potassium 4.2 mmol/L (3.5-5.1); Protein, Total 4.1 g/dL (6.4-8.2)
[2020-03-03] MEDS ORDERED: WATER FOR INJ,STERILE 10 ML ONE ×2 (06:09→10:27)
[2020-03-03] MEDS: HYDROCORTISONE SUC 100 MG INJ IV SCH ×3 (07:18→17:13)
[2020-03-03] MEDS: VITAMIN K (ADULT) 10 MG/ML SQ SCH (07:57)
[2020-03-03] MEDS ORDERED: SODIUM BICARB 50 MEQ/50ML VIAL IV ONE (08:00)
--- NOTE | 2020-03-03 08:17 | OP ---
Surgeon: Serg Salcedo MD Indication: I was contacted last night by the ICU nurse stating that Dr. Ruff wants to start pat ient on dialysis. Patient could not be transferred to [place] because of bed availability. The stephanie ent is on pressors however. They were planning on doing ion exchange and so removing fluids. Inform ed consent could not be obtained from the patient, he is intubated, unable to understand the procedur e. This is an administrative consent as it was deemed necessary. His laboratory data was reviewed. His INR is over 5. Description Of Procedure: Knowing that we did not attempt the neck or the chest, right femoral regio n would be the safest for complications. Therefore, the right femoral region was prepped and draped in usual sterile fashion. Lidocaine 1% was infiltrated locally. An 18-gauge needle was used to acce ss the right femoral vein. Guidewire passed and then Seldinger technique used. The vein dilated car efully and catheter placed and secured with 2-0 nylon. Catheter flushed with heparin and packed with heparin. Sterile dressing applied. Please note, 10 minutes of direct pressure was applied by me in the right groin to hopefully prevent hematomas and a sandbag has been used as well. The patient was in critical condition throughout the procedure, hypertensive and tachycardic; however, his vitals di d not change during the procedure. /MODL Voice ID: [id number] Report ID: [id number]
[2020-03-03] MEDS ORDERED: FAMOTIDINE 20 MG/2 ML VIAL IV SCH (09:00)
[2020-03-03] MEDS: PANTOPRAZOLE 40 MG INJ IVP SCH (09:00)
[2020-03-03] MEDS: HEPARIN 5000 UNIT/ML 1 ML VIAL SQ SCH ×2 (09:00→21:00)
[2020-03-03] MEDS: Meropenem 500 MG in NA CHLORIDE 0.9% 100 ML IV SCH ×2 (09:01→21:36)
[2020-03-03 09:07] LABS: Protime INR 5.88
[2020-03-03] MEDS ORDERED: ETOMIDATE 20 MG/10 ML VIAL IV ONE (09:23)
[2020-03-03] MEDS ORDERED: THIAMINE 200 MG/2 ML INJ IVP ONE (09:48)
[2020-03-03] MEDS ORDERED: HYDROCORTISONE SUC 100 MG INJ IV ONE (09:48)
[2020-03-03] MEDS ORDERED: WATER FOR INJ,STERILE 10 ML IV SCH (10:00)
[2020-03-03 10:07] LABS: Arterial Blood Carboxyhemoglob 0.5 % (0-1.5); Blood Gas Oxyhemoglobin 95.8 % (94-97); Blood O2 Saturation 97.4 % (92-98.5)
[2020-03-03] MEDS ORDERED: NA CHLORIDE 0.9% 50 ML ONE ×2 (11:30→12:40)
--- NOTE | 2020-03-03 12:13 | P.PN ---
Subjective Date of Service: 03/02/20 Chief Complaint: Respiratory failure shock Patient is 69 years of age a my saw this afternoon he deteriorated became unresponsive intubated when I came to see man around 9:30 p.m. patient was on multiple vasopressors unresponsive 100% oxygen very tachypneic multiorgan failure very agitated Review of Systems is unable to be obtained Physical Examination - Vital Signs Temperature: 98.5 F Blood Pressure: 87/74 Pulse: 127 Respirations: 34 Pulse Ox (%): 100 - Physical Exam General: Moderate distress Respiratory: Clear to auscultation bilaterally, Diminished Cardiovascular: Normal S1 S2, Edema Gastrointestinal: Hypoactive, Distended Musculoskeletal: No clubbing Integumentary: No rashes - Studies Microbiology Data (last 24 hrs): 02/28/20 21:00 Throat Culture & Sensitivity - Final NORMAL UPPER RESPIRATORY AMBER GROWN. 02/28/20 22:00 Stool Culture & Sensitivity - Final Assessment & Plan - Problems (Diagnosis) (1) Septic shock due to Clostridioides difficile Current Visit: Yes Status: Acute Plan: Patient is 69 years of age admitted with septic shock CT scan shows colitis C difficile positive with vancomycin Flagyl seen by Nephrology in you with vasopressors patient has metabolic acidosis and hyporcapnic is been significant worsening of his renal function and increasing white count so far is oxygenation is satisfactory is very alert oriented responsive cooperate (2) Shock Current Visit: Yes Status: Acute Plan: Patient is 69 years of age admitted with respiratory failure septic shock right metabolic acidosis worsening renal failure hepatic failure multiorgan failure white count is significantly elevated patient very acidotic continue with vasopressors patient change to assist-control chest x-ray reviewed. ET tube satisfactory and later adjusted discussed with renal and Dr. Cates he is to get some fluid boluses also got some albumin prognosis very poor discuss with the friend
[2020-03-03] MEDS ORDERED: SODIUM CHLORIDE 0.9% 10ML INJ IV PRN (12:15)
--- NOTE | 2020-03-03 12:17 | P.PN ---
Subjective Date of Service: 03/03/20 Chief Complaint: Respiratory failure shock No change still on 100% oxygen multiple vasopressors agitated Review of Systems is unable to be obtained Physical Examination - Vital Signs Temperature: 98.5 F Blood Pressure: 87/74 Pulse: 127 Respirations: 34 Pulse Ox (%): 100 - Physical Exam General: Unresponsive Respiratory: Clear to auscultation bilaterally, Diminished Cardiovascular: Edema Gastrointestinal: Hypoactive Musculoskeletal: No clubbing, No swelling - Studies Microbiology Data (last 24 hrs): 02/28/20 21:00 Throat Culture & Sensitivity - Final NORMAL UPPER RESPIRATORY AMBER GROWN. 02/28/20 22:00 Stool Culture & Sensitivity - Final Assessment & Plan - Problems (Diagnosis) (1) Septic shock due to Clostridioides difficile Current Visit: Yes Status: Acute Plan: Patient is on antibiotic (2) Shock Current Visit: Yes Status: Acute Plan: Patient's overall prognosis is very poor he is deteriorating maximum antibiotic therapy on 100% oxygen multiple vasopressors patient is currently not stable for transfer unable to do dialysis due to his hypotension discuss with Nephrology patient has a metabolic acidosis very hypoxic coagulopathy elevated PT INR worsening renal and liver function
--- NOTE | 2020-03-03 13:16 | P.PN ---
Subjective Date of Service: 03/03/20 Chief Complaint: Respiratory failure shock Subjective A 69-year-old with PMHx of HTN , prostate was on radiation therapy until 10/2019 and also was Zytiga which was stopped and steroids Pt was recently admitted or sepsis and CIERA this admission pt was admitted for abd pain, found to have severe C.Diff, course complicated by cardiac arrest, required incubation today Pt on 2 pressers transfer on hold due to instability severe acidosis , cont bicarb drip no indication for renal replacement therapy, at this time if Cr cont to trend up with oliguria and sever acidosis, then will need to initiate HD with adding Vasopressin if needed though the risk of initiating HD outweigh the benefits Allergies: NO KNOWN ALLERGIES. Medications: Amlodipine 5 mg 2 times a day, aspirin 81 mg daily, clonidine 0.3 mg 3 times a day, hydralazine 50 mg p.o. 2 times a day, hydrochlorothiazide 12.5 mg p.o. daily, lisinopril 20 mg p.o. 2 times a day, metoprolol tartrate 100 mg p.o. 2 times a day, tamsulosin 0.4 mg p.o. daily. Review of Systems: as in HPI Past Medical History: as in HPI Past Surgical History: Partial thyroidectomy in 2014, due to goiter and this was in form of removal of left thyroid lobe. Family History: Father , had coronary artery disease, hypertension. Mother , had Parkinson disease. Social History: Negative for smoking. Occasional use of alcohol. Physical exam general: intubated , obese, moving extrmities Neck; Supple, No elevated JVD hear: RRR, normal S1,2 no murmur or rub Chest: CTAB, no rales or wheezes Abdomen: distended, BS +ve Extremities no edema , or erythema A/p CIERA on CKD US: no hydro Anuric severe acidosis , cont bicarb drip no indication for renal replacement therapy, at this time if Cr cont to trend up with oliguria and sever acidosis, then will need to initiate HD with adding Vasopressin if needed though the risk of initiating HD outweigh the benefits Severe Sepsis Due to C.diff will recheck lactic acid on 2 pressers if bp drops , then will need to add 3 presser HAGMA severe acidosis , cont bicarb drip no indication for renal replacement therapy, at this time if Cr cont to trend up with oliguria and sever acidosis, then will need to initiate HD with adding Vasopressin if needed though the risk of initiating HD outweigh the benefits elevated cardiac enzymes will trend Poor prognosis Physical Examination - Vital Signs Temperature: 98.5 F Blood Pressure: 87/74 Pulse: 127 Respirations: 34 Pulse Ox (%): 100
[2020-03-03] MEDS ORDERED: DIAZEPAM 10 MG/2 ML INJ SYRINGE IV ONE (14:40)
[2020-03-03] MEDS ORDERED: WATER FOR INJ,STERILE 10 ML IM PRN (15:23)
[2020-03-03] MEDS ORDERED: MIDAZOLAM HCL 100 MG in NA CHLORIDE 0.9% 80 ML IV PRN (15:23)
[2020-03-03] MEDS ORDERED: ZIPRASIDONE MESYLA 20 MG/VIAL IM SCH (16:00)
--- NOTE | 2020-03-03 16:13 | EKG ---
Test Date: 2020-03-03 Test Time: 12:49:26 Machine Boss: MALLIKA MEASUREMENT RESULTS: Intervals: Rate: 126 VT: 156 QRSD: 66 QT: 324 QTc: 469 [place]: P: 62 VT: 156 QRS: -27 T: 97 INTERPRETIVE STATEMENTS: Sinus tachycardia with occasional premature ventricular complexes Low voltage QRS Abnormal QRS-T angle, consider primary T wave abnormality Abnormal ECG Compared to ECG 02/28/2020 21:47:08 Ventricular premature complex(es) now present Low QRS voltage now present T-wave abnormality now present ST (T wave) deviation no longer present Possible ischemia no longer present Electronically Signed On 03-03-20 16:12:56 CDT by Chidi Arredondo
[2020-03-03 17:20] LABS: Protime INR 2.87
[2020-03-04] MEDS: NA CHLORIDE 0.9% RC SCH ×2 (00:15→05:12)
[2020-03-04] MEDS: HYDROCORTISONE SUC 100 MG INJ IV SCH (00:15)
[2020-03-04] MEDS: METRONIDAZOLE 500mg IVPB 500 MG/100 ML BAG IV SCH ×2 (00:15→09:07)
[2020-03-04] MEDS: VANCOMYCIN RC SCH ×2 (00:15→05:12)
[2020-03-04] MEDS: D5W 1,000 ML with NA BICARB 8.4% 150 MEQ IV SCH ×4 (00:23→09:06)
[2020-03-04] MEDS: NOREPINEPHRINE 8 MG in Dextrose 5%-Water 500 ML IV PRN ×2 (00:27→05:12)
[2020-03-04 00:46] VITALS: O2SAT 99
[2020-03-04] MEDS: FENTANYL CITR 100 MCG/2 ML IV PRN ×2 (01:23→06:00)
[2020-03-04] MEDS ORDERED: NOREPINEPHRINE 4 MG/4 ML VIAL ONE (05:11)
[2020-03-04] MEDS: VANCOMYCIN ORAL SOLN 250 MG/5 ML OSYR PO SCH ×2 (05:12→09:07)
[2020-03-04] MEDS: VITAMIN K (ADULT) 10 MG/ML SQ SCH (07:00)
[2020-03-04 07:14] LABS: MPV 11.4 fL (7.6-11.3); RBC Red Blood Cell Count 3.31 M/uL (4.33-5.43)
--- NOTE | 2020-03-04 08:31 | RAD REPORT ---
EXAM DESCRIPTION: RAD - Chest Single View - 03/04/2020 6:06 am CLINICAL HISTORY: respi failure Chest pain. COMPARISON: Chest Single View dated 03/02/2020; Chest Single View dated 03/02/2020; Chest Single View dated 03/01/2020; Abdomen 1 View (KUB) dated 03/01/2020 FINDINGS: Portable technique limits examination quality. Tip of the ET tube is above the zenaida. Enteric tube extends into the upper abdomen. Mild asymmetric pulmonary opacities are present, unchanged. Heart is significantly enlarged.
[2020-03-04] MEDS: HEPARIN 5000 UNIT/ML 1 ML VIAL SQ SCH (09:00)
[2020-03-04 09:05] LABS: Protime INR 3.82
[2020-03-04] MEDS: Meropenem 500 MG in NA CHLORIDE 0.9% 100 ML IV SCH (09:06)
[2020-03-04 09:07] LABS: Anisocytosis 2+; Blood Morphology Comment NOTED (NOT SEEN); Platelet Estimate DECR; Platelets, Giant PESENT; Toxic Granulation 2+
[2020-03-04] MEDS: PANTOPRAZOLE 40 MG INJ IVP SCH (09:07)
[2020-03-04 09:08] LABS: Burr Cells 2+
--- NOTE | 2020-03-04 09:16 | RAD REPORT ---
EXAM DESCRIPTION: RAD - Abdomen 1 View (KUB) - 03/04/2020 9:11 am CLINICAL HISTORY: colitis Pain COMPARISON: Abdomen 1 View (KUB) dated 03/01/2020 FINDINGS: Examination is quite limited due to patient body habitus. The bowel gas pattern is non-obs tructive. No evidence of free air or pneumatosis. No suspicious calcifications.
[2020-03-04] MEDS ORDERED: NA CHLORIDE 0.9% 500 ML ONE (10:03)
[2020-03-04 10:27] VITALS: TEMP 97.4
[2020-03-04] MEDS ORDERED: EPINEPHrine 1 MG/10 ML SYR IV ONE (10:35)
[2020-03-04] MEDS ORDERED: NA CHLORIDE 0.9% 1,000 ML IV ONE ×2 (10:35→15:37)
[2020-03-04 11:12] VITALS: BP 82/32
[2020-03-04] MEDS ORDERED: EPINEPHRINE/PF 1 MG/ML AMP IV ONE (15:37)
[2020-03-04] MEDS ORDERED: NA CHLORIDE 0.9% 250 ML IV ONE (15:37)
--- NOTE | 2020-03-04 21:30 | PN ---
Date of Progress Note: 03/03/2020 Subjective: Patient was seen for followup in the morning. He was on ventilator, lying in bed in ICU . Vital signs reviewed. Intake output records reviewed. Patient remains on IV fluid and vasopresso r medications. Objective: HEENT: Unremarkable except presence of endotracheal tube in mouth. Lungs: Bilateral equal air entry. Clear to auscultation Cardiac: Heart sounds normal Abdomen: Soft and distended. Bowel sounds are very hypoactive. Extremities: No leg edema. Laboratory Data: White count 78, hemoglobin 10.9, platelets 157. INR 5.23. Sodium 143, potassium 4 .2, chloride 107, bicarb 12, BUN 46, creatinine 5.38, glucose 136, SGOT 2069, SGPT 532. Impression: 1.Septic shock with multiorgan failure. 2.Clostridium difficile colitis. 3.Acute respiratory failure. 4.Disseminated intravascular coagulation. 5.Acute renal failure. Plan: We will go ahead and continue to follow with process manager, and certified medical records coder. Patient remains on bicarb drip, ventilator support to be managed by Dr. Servin. We will continue antibiotics per order. Continue IV fluid and the patient's overall prognosis is very poor. He remains on ventilator as he was intubated because of respiratory failure and continues to have almost no urine output exce pt few cc's as noted. We were planning to transfer him to [facility] for higher level of care, but he i s on 2 vasopressor medications and still has problem with hypotension, so Dr. Servin and myself we both discussed details and we both have opinion that the patient is unstable for transfer, so at this point, we are not planning to transfer him and we will reassess his situation tomorrow. Nephrologis t will also reassess the situation tomorrow to see whether they can do dialysis at our facility or no t depending on clinical condition. I did reach out to patient's next of kin and all the details were discussed with him 2-3 different times throughout the day today. DAVID/MODL Voice ID: [id number] Report ID: [id number]
--- NOTE | 2020-03-05 17:33 | EKG ---
Test Date: 2020-03-04 Test Time: 10:02:16 Video Game Engineer: DIONNE MEASUREMENT RESULTS: Intervals: Rate: 116 MD: 206 QRSD: 66 QT: 304 QTc: 422 [place]: P: 52 MD: 206 QRS: 0 T: 102 INTERPRETIVE STATEMENTS: Sinus tachycardia Low voltage QRS Septal infarct, age undetermined Abnormal ECG Compared to ECG 03/03/2020 12:49:26 Myocardial infarct finding now present Ventricular premature complex(es) no longer present T-wave abnormality no longer present Electronically Signed On 03-05-20 17:31:57 CDT by Chidi Arredondo
== END 2020-03-04 10:36 | disposition expired | DRG 871 ==
LOC: ER 19:23 → ERHOLD 23:03 → 4TH 23:04 → 2ND 02-29 05:42 → 3RD-ICU 03-01 05:40
PROVIDERS: ADMIT Internal Medicine; ATTEND Internal Medicine
PROC: 06HM33Z Insertion of Infusion Device into Right Femoral Vein, Percutaneous Approach (ICD-10-PCS; principal; 2020-03-03)
DX: A41.9 Sepsis, unspecified organism (principal); R65.21 Severe sepsis with septic shock; D65 Disseminated intravascular coagulation [defibrination syndrome]; J96.00 Acute respiratory failure, unspecified whether with hypoxia or hypercapnia; A04.72 Enterocolitis due to Clostridium difficile, not specified as recurrent; N17.9 Acute kidney failure, unspecified; L03.116 Cellulitis of left lower limb; K57.32 Diverticulitis of large intestine without perforation or abscess without bleeding; I47.2 Ventricular tachycardia; K56.7 Ileus, unspecified; E87.2 Acidosis; Z68.42 Body mass index [BMI] 45.0-49.9, adult; E87.6 Hypokalemia; E78.2 Mixed hyperlipidemia; M15.9 Polyosteoarthritis, unspecified; N52.9 Male erectile dysfunction, unspecified; E86.0 Dehydration; E86.9 Volume depletion, unspecified; E83.42 Hypomagnesemia; I48.0 Paroxysmal atrial fibrillation; E66.01 Morbid (severe) obesity due to excess calories; Z79.52 Long term (current) use of systemic steroids; Z03.818 Encounter for observation for suspected exposure to other biological agents ruled out
CPT/HCPCS: 36415; 71045; 74018; 74176; 76770; 80048; 80053; 80061; 80076; 81015; 82150; 82248; 82274; 82550; 82553; 82805; 82947; 83010; 83605; 83615; 83690; 83735; 84100; 84132; 84145; 84484; 85025; 85610; 85730; 86850; 86900; 86901; 87040; 87045; 87046; 87070; 87081; 87086; 87088; 87177; 87205; 87209; 87324; 87425; 87449; 87804; 89055; 93005; 94002; 94003; 94660; 96374; 96375; 99285; C9113; J0171; J0696; J1160; J1630; J1644; J1720; J2250; J2370; J2405; J2550; J3010; J3360; J3411; J3430; J3475; J3486; J7030; J7040; J7060; J7120; J7799; P9047; P9059; U0002